=== PATIENT | male | born 1960 | race Caucasian/White ===

== ENCOUNTER 2017-08-13 20:12 | Emergency (ER) | payer BC ==
[~2017-08-13] VITALS: Ht 177.8 cm; Wt 90.7 kg
[~2017-08-13 20:12] MED LIST: ADV250/50 INH; ALB0.5 INH; ALB18R INH; AZIT-18 PO; BACL-1 PO; BUP100 PO; BUPR-118 PO; BUPR-474 PO; CARB-71 PO; CLI150 PO; CYC10 PO; DIA5 PO; FLUT1DIS28 IH; GABA-549 PO; HYDR-4309 PO; LOR75 PO; LOSA50TA72 PO; OLAN10TA19 PO; OXYC-865 PO; OXYC20TA86 PO; OXYC20TA99 PO; PER PO; PRE20 PO; PRED20TA6 PO; TRAM-627 PO; TRAZ-133 PO; TRAZ50 PO; VALA500T63 PO; VENL150C61 PO
--- NOTE | 2017-08-13 20:19 | ER Report ---
History and Physical Time Seen By MD: 20:18 HPI/ROS CHIEF COMPLAINT: Rectal bleeding HISTORY OF PRESENT ILLNESS: 56-year-old male presents ambulatory to the ER concerned about several bouts of rectal bleeding since 4 PM today. He initially passed a large amount of clots and blood. And then he subsequently had another bowel movement of bright red blood. She denies history of hemorrhoids. Patient states heavy ibuprofen use for chronic neck pain. He is seeing spinal surgeon with consideration for surgery. He's had no neck injections. He's had extensive physical therapy. Patient notes follow with family history of ulcer. He also notes a nephew with Crohn's disease. He denies actual self history of inflammatory bowel disease. REVIEW OF SYSTEMS: Respiratory: No cough, no dyspnea. Cardiovascular: No chest pain, no palpitations. Gastrointestinal: As above Musculoskeletal: No back pain. Allergies: Coded Allergies: Penicillins (Verified Allergy, Intermediate, RASH, 08/13/17) erythromycin base (Verified Adverse Reaction, Mild, NAUSEA/VOMITING, ) Home Meds Reported Medications Losartan Potassium (LOSARTAN POTASSIUM) 50 Mg Tablet, 50 MG PO QDAY 08/13/17 Ibuprofen (ADVIL) 200 Mg Tablet, 3 TAB PO DAILY 08/13/17 Gabapentin (GABAPENTIN) 300 Mg Capsule, 300 MG PO TID 03/30/13 Venlafaxine Hcl (Effexor Xr) 150 Mg Cap.sr.24h, 300 MG PO QDAY, 0 Refills 11/04/09 Discontinued Reported Medications Albuterol Sulfate (VENTOLIN HFA) 18 Gm Inh, 1-2 PUFF INH PRN, INH 05/10/17 Bupropion Hcl (WELLBUTRIN XL) 300 Mg Tab.er.24h, 300 MG PO QDAY, TAB 05/10/17 Baclofen (BACLOFEN) 10 Mg Tablet, 10 MG PO BID Y for PRN, TAB 05/10/17 Valacyclovir Hcl (VALACYCLOVIR) 500 Mg Tablet, 500 MG PO DAILY 05/10/17 Carbidopa/Levodopa (SINEMET 25-100 MG TABLET) 1 Each Tablet, 1 EACH PO QID 05/10/17 Losartan Potassium (LOSARTAN POTASSIUM) 50 Mg Tablet, 50 MG PO QDAY 05/10/17 Past Medical/Surgical History Past medical history significant for asthma, probable COPD, GERD, osteoarthritis , right shoulder surgery, and knee scope, neck fusion, back fusion, left foot fracture, and depression. Reviewed Nurses Notes: Yes Old Medical Records Reviewed: Yes Hx Smoking: No (1 CAN SMOKELESS TOBACOO EVERY 3-4 DAYS) Hx Substance Use Disorder: No Hx Alcohol Use: Yes Constitutional Vital Sign - Last 24 Hours 08/13/17 08/13/17 08/13/17 08/13/17 20:14 20:16 20:17 20:18 Temp 98.3 Pulse ??? 86 84 81 Resp 20 B/P (MAP) 161/85 (110) 161/85 Pulse Ox 91 91 90 O2 Delivery Room Air 08/13/17 08/13/17 08/13/17 08/13/17 20:20 20:22 20:24 20:26 Pulse 76 81 76 76 Pulse Ox 93 92 91 92 08/13/17 08/13/17 08/13/17 08/13/17 20:28 20:29 20:30 20:32 Pulse 73 75 84 B/P (MAP) 147/89 (108) Pulse Ox 92 93 92 08/13/17 08/13/17 08/13/17 08/13/17 20:33 20:34 20:36 20:41 Pulse 86 87 68 B/P (MAP) 144/96 (112) 129/89 (102) Pulse Ox 92 91 88 08/13/17 08/13/17 21:11 22:01 Pulse 68 85 Resp 16 B/P (MAP) 137/84 (101) Pulse Ox 92 92 O2 Delivery Room Air Physical Exam Vital signs stable, afebrile, pulse ox normal, orthostatic, positive General Appearance: The patient is alert, has no immediate need for airway protection and no current signs of toxicity. Skin warm, dry, pink, no acute distress HEENT: Pupils equal and round no injection. Oropharynx without redness or exudate, mucous members are moist Respiratory: Chest is non tender, lungs are clear to auscultation. Cardiac: regular rate and rhythm Gastrointestinal: Abdomen is soft, mild distention and non tender, no masses, bowel sounds normal. Rectal:, Brown mucous, no mahesh blood noted Musculoskeletal: Neck: Neck is supple and non tender. Extremities have full range of motion and are non tender. Skin: No rashes or lesions. DIFFERENTIAL DIAGNOSIS: After history and physical exam differential diagnosis was considered for lower GI bleeding including but not limited to diverticulosis , tumor, AVM, hemorrhoid and anal fissure., Additionally, upper GI bleed Medical Decision Making Data Points Result Diagram: 08/13/17201908/13/172019 Laboratory Hematology Test 08/13/17 20:20 08/13/17 20:54 08/13/17 21:50 Red Blood Count 5.17 M/uL (4.00-5.60) Mean Corpuscular Volume 90.8 fL (80.0-96.0) Mean Corpuscular Hemoglobin 31.8 pg (26.0-33.0) Mean Corpuscular Hemoglobin Concent 35.0 g/dL (32.0-36.0) Red Cell Distribution Width 13.3 % (11.5-14.5) Mean Platelet Volume 7.2 fL (7.2-11.1) Neutrophils (%) (Auto) 82.0 % (39.4-72.5) Lymphocytes (%) (Auto) 8.3 % (17.6-49.6) Monocytes (%) (Auto) 5.7 % (4.1-12.4) Eosinophils (%) (Auto) 3.1 % (0.4-6.7) Basophils (%) (Auto) 0.9 % (0.3-1.4) Nucleated RBC Relative Count (auto) 0.0 /100WBC Neutrophils # (Auto) 8.1 K/uL (2.0-7.4) Lymphocytes # (Auto) 0.8 K/uL (1.3-3.6) Monocytes # (Auto) 0.6 K/uL (0.3-1.0) Eosinophils # (Auto) 0.3 K/uL (0.0-0.5) Basophils # (Auto) 0.1 K/uL (0.0-0.1) Nucleated RBC Absolute Count (auto) 0.00 K/uL Prothrombin Time 13.9 seconds (12.0-14.4) Prothromb Time International Ratio 1.06 Activated Partial Thromboplast Time 28 seconds (23-35) Sodium Level 134 mmol/L (137-145) Potassium Level 3.9 mmol/L (3.5-5.0) Chloride Level 100 mmol/L (98-107) Carbon Dioxide Level 24 mmol/L (22-30) Blood Urea Nitrogen 13 mg/dl (9-21) Creatinine 1.00 mg/dl (0.66-1.25) Glomerular Filtration Rate Calc > 60.0 Random Glucose 106 mg/dl (75-110) Lactate 1.2 mmol/L (0.7-2.1) Calcium Level 8.8 mg/dl (8.4-10.2) Total Bilirubin 0.8 mg/dl (0.2-1.3) Aspartate Amino Transf (AST/SGOT) 45 U/L (0-35) Alanine Aminotransferase (ALT/SGPT) 40 U/L (0-56) Alkaline Phosphatase 70 U/L (0-126) C-Reactive Protein 4.2 mg/dl (<1.0) Total Protein 7.3 gm/dl (6.3-8.2) Albumin 4.1 g/dl (3.5-5.0) Amylase Level 60 U/L (0-110) Lipase 43 U/L (23-300) Urine Color Yellow Urine Clarity Clear Urine pH 5.0 pH (4.8-9.5) Urine Specific Alliance 1.015 Urine Protein Negative mg/dL (NEGATIVE) Urine Glucose (UA) Negative mg/dL (NEGATIVE) Urine Ketones 20 mg/dL (NEGATIVE) Urine Blood Small (NEGATIVE) Urine Nitrite Negative (NEGATIVE) Urine Bilirubin Negative (NEGATIVE) Urine Urobilinogen Negative mg/dL (0.2-1.9) Urine Leukocyte Esterase Negative (NEGATIVE) Urine RBC 3 /HPF (0-2/HPF) Urine WBC 4 /HPF (0-5/HPF) Urine Squamous Epithelial Cells None /LPF (</=FEW) Urine Bacteria Few /HPF (NONE-FEW) Urine Mucus None /HPF (NONE-FEW) Stool Occult Blood (IFOB) Positive (NEGATIVE) Chemistry Test 08/13/17 20:20 08/13/17 20:54 08/13/17 21:50 White Blood Count 9.8 k/uL (4.5-11.0) Red Blood Count 5.17 M/uL (4.00-5.60) Hemoglobin 16.4 g/dL (14.0-18.0) Hematocrit 47.0 % (42.0-52.0) Mean Corpuscular Volume 90.8 fL (80.0-96.0) Mean Corpuscular Hemoglobin 31.8 pg (26.0-33.0) Mean Corpuscular Hemoglobin Concent 35.0 g/dL (32.0-36.0) Red Cell Distribution Width 13.3 % (11.5-14.5) Platelet Count 308 K/uL (150-450) Mean Platelet Volume 7.2 fL (7.2-11.1) Neutrophils (%) (Auto) 82.0 % (39.4-72.5) Lymphocytes (%) (Auto) 8.3 % (17.6-49.6) Monocytes (%) (Auto) 5.7 % (4.1-12.4) Eosinophils (%) (Auto) 3.1 % (0.4-6.7) Basophils (%) (Auto) 0.9 % (0.3-1.4) Nucleated RBC Relative Count (auto) 0.0 /100WBC Neutrophils # (Auto) 8.1 K/uL (2.0-7.4) Lymphocytes # (Auto) 0.8 K/uL (1.3-3.6) Monocytes # (Auto) 0.6 K/uL (0.3-1.0) Eosinophils # (Auto) 0.3 K/uL (0.0-0.5) Basophils # (Auto) 0.1 K/uL (0.0-0.1) Nucleated RBC Absolute Count (auto) 0.00 K/uL Prothrombin Time 13.9 seconds (12.0-14.4) Prothromb Time International Ratio 1.06 Activated Partial Thromboplast Time 28 seconds (23-35) Glomerular Filtration Rate Calc > 60.0 Lactate 1.2 mmol/L (0.7-2.1) Calcium Level 8.8 mg/dl (8.4-10.2) Total Bilirubin 0.8 mg/dl (0.2-1.3) Aspartate Amino Transf (AST/SGOT) 45 U/L (0-35) Alanine Aminotransferase (ALT/SGPT) 40 U/L (0-56) Alkaline Phosphatase 70 U/L (0-126) C-Reactive Protein 4.2 mg/dl (<1.0) Total Protein 7.3 gm/dl (6.3-8.2) Albumin 4.1 g/dl (3.5-5.0) Amylase Level 60 U/L (0-110) Lipase 43 U/L (23-300) Urine Color Yellow Urine Clarity Clear Urine pH 5.0 pH (4.8-9.5) Urine Specific Alliance 1.015 Urine Protein Negative mg/dL (NEGATIVE) Urine Glucose (UA) Negative mg/dL (NEGATIVE) Urine Ketones 20 mg/dL (NEGATIVE) Urine Blood Small (NEGATIVE) Urine Nitrite Negative (NEGATIVE) Urine Bilirubin Negative (NEGATIVE) Urine Urobilinogen Negative mg/dL (0.2-1.9) Urine Leukocyte Esterase Negative (NEGATIVE) Urine RBC 3 /HPF (0-2/HPF) Urine WBC 4 /HPF (0-5/HPF) Urine Squamous Epithelial Cells None /LPF (</=FEW) Urine Bacteria Few /HPF (NONE-FEW) Urine Mucus None /HPF (NONE-FEW) Stool Occult Blood (IFOB) Positive (NEGATIVE) Coagulation Test 08/13/17 20:20 Prothrombin Time 13.9 seconds Prothromb Time International Ratio 1.06 Activated Partial Thromboplast Time 28 seconds Urinalysis Test 08/13/17 20:54 Urine Color Yellow Urine Clarity Clear Urine pH 5.0 pH (4.8-9.5) Urine Specific Alliance 1.015 Urine Protein Negative mg/dL (NEGATIVE) Urine Glucose (UA) Negative mg/dL (NEGATIVE) Urine Ketones 20 mg/dL (NEGATIVE) Urine Blood Small (NEGATIVE) Urine Nitrite Negative (NEGATIVE) Urine Bilirubin Negative (NEGATIVE) Urine Urobilinogen Negative mg/dL (0.2-1.9) Urine Leukocyte Esterase Negative (NEGATIVE) Urine RBC 3 /HPF (0-2/HPF) Urine WBC 4 /HPF (0-5/HPF) Urine Squamous Epithelial Cells None /LPF (</=FEW) Urine Bacteria Few /HPF (NONE-FEW) Urine Mucus None /HPF (NONE-FEW) ED Course/Re-evaluation Clinical Indication for ER IV: Hydration, IV Access ED Course Patient was admitted to an examination room. H&P was done. The differential diagnoses was considered. On clinical examination. Patient has stable vital signs. He's had mahesh blood from his rectum. 2 episodes over approximate 5 hours. His H&H are stable. His vital signs are stable. On rectal examination there is brown stool. I had a prolonged discussion with the patient regarding possible admission. He seems quite stable at this time. He's advised no more NSAIDs. He is advised to follow-up next week for EGD and colonoscopy. Patient cautioned return to the ER for feeling lightheaded, dizzy, shortness of breath or fainting. She's also advised to return if he has several more large bloody bowel movements. 08/13/2017 9:52:03 pm case discussed with Dr. Turcios Decision to Disposition Date: Aug 13, 2017 Decision to Disposition Time: 21:37 Depart Departure Latest Vital Signs Vital Signs Date Time Temp Pulse Resp B/P (MAP) Pulse Ox O2 Delivery O2 Flow Rate FiO2 08/13/17 22:01 85 16 137/84 (101) 92 Room Air 08/13/17 20:17 98.3 Impression: Primary Impression: Rectal bleeding Condition: Improved Disposition: HOME OR SELF-CARE Referrals: LEONARD MITCHELL PA-C (PCP) SHAVONNE MUÑIZ MD,CHAD Wade MD Patient Instructions: Rectal Bleeding (ED) Additional Instructions: Follow-up early next week with your primary care or you can call the surgeons directly for a screening colonoscopy, Dr. Muñiz or Dr. Sawyer Return to the ER for any worsening, especially feeling lightheaded or dizzy, several more bright red bowel movements ROCKY MARSHALL DO Aug 13, 2017 20:19
[2017-08-13] MEDS ORDERED: IBUP-1687 PO (20:22)
[2017-08-13] MEDS ORDERED: NS(*) 0.9% 1000 ML BAG 1,000 ML IV ONE (20:25)
[2017-08-13] MEDS ORDERED: ONDANSETRON 4 MG/2 ML VIAL IVP ONE (20:25)
[2017-08-13] MEDS ORDERED: LOSA50TA72 PO (20:28)
[2017-08-13 20:34] LABS: PLATELET COUNT, AUTOMATED 308 K/uL (150-450)
[2017-08-13 20:41] LABS: INR 1.06
[2017-08-13 22:01] VITALS: BP 137/84
== END 2017-08-13 22:07 | disposition home or self-care (01) ==
LOC: ER 20:29
DX: K62.5 Hemorrhage of anus and rectum (principal)
CPT/HCPCS: 81001; 82150; 82274; 83605; 83690; 85025; 85610; 85730; 86140; 96361; 96374; 99283; J2405; J7030; 82040; 82247; 82310; 82374; 82435; 82565; 82947; 84075; 84132; 84155; 84295; 84450; 84460; 84520

== ENCOUNTER 2017-12-14 00:12 | Day surgery (SDC) | payer BC, OTHER ==
[~2017-12-14] VITALS: Ht 177.8 cm; Wt 90.3 kg
[~2017-12-14 00:12] MED LIST changes: +ALBU8.5H IH; +IBUP-1687 PO
--- NOTE | 2017-12-14 07:44 | Post Operative Progress Note ---
Post Operative Progress Note Date: December 14, 2017 Time: 10:24 Surgeon: chip Anesthesia: dr watkins Pre-Op Diagnosis: rectal bleeding Post-Op Diagnosis: normal exam Procedure(s): colonoscopy SHAVONNE SPARKS MD December 14, 2017 07:44
--- NOTE | 2017-12-14 07:45 | Short(Outpt) Discharge Summary ---
Discharge Summary Reason for Hosp/Final Diag: (1) Rectal bleeding Status: Acute Hospital Course & Plan: normal colonoscopy Departure Discharge to: Home Discharge Instructions Home Meds Reported Medications Albuterol Sulfate (VENTOLIN HFA) 18 Gm Inh, 1-2 PUFF INH 3-4XD Y for SHORTNESS OF BREATH, INH 12/10/17 Albuterol Sulfate 90 Mcg/Act (PROAIR HFA 90 MCG/ACT) 8.5 Gm Hfa.aer.ad, 2 PUFF IH BID, INHALER 12/10/17 Losartan Potassium (LOSARTAN POTASSIUM) 50 Mg Tablet, 50 MG PO QDAY 12/10/17 Losartan Potassium (LOSARTAN POTASSIUM) 50 Mg Tablet, 50 MG PO QDAY 08/13/17 Ibuprofen (ADVIL) 200 Mg Tablet, 3 TAB PO DAILY 08/13/17 Gabapentin (GABAPENTIN) 300 Mg Capsule, 300 MG PO BID 03/30/13 Venlafaxine Hcl (Effexor Xr) 150 Mg Cap.sr.24h, 300 MG PO QDAY, 0 Refills 11/04/09 Diet: Regular Activity: As Tolerated SHAVONNE SPARKS MD December 14, 2017 07:45
[2017-12-14] MEDS ORDERED: LIDOCAINE MPF 1% 5 ML VIAL ONE (08:40)
[2017-12-14] MEDS ORDERED: PROPOFOL EMUL(*) 10MG/ML 20 ML 40 ML ONE (08:40)
[2017-12-14 08:41] VITALS: BP 127/83
[2017-12-14] MEDS ORDERED: LIDOCAINE/SOD BICARB 8.4% SYR ID ONE (09:40)
[2017-12-14] MEDS ORDERED: NORMOSOL R SOLN(*) 1000 ML BAG 1,000 ML IV PRN (09:40)
[2017-12-14 10:26] VITALS: BP 93/65
[2017-12-14 10:32] VITALS: BP 101/72
[2017-12-14 10:51] VITALS: BP 137/86
[2017-12-14 11:17] VITALS: BP 134/77
[2017-12-14 11:18] VITALS: BP 138/82
--- NOTE | 2017-12-14 15:26 | OPERATIVE REPORT 1 ---
EVENT DATE: December 14, 2017 SURGEON: Franki Muñiz MD ANESTHESIOLOGIST: Peyman Barron MD ANESTHESIA: Sedation. PREOPERATIVE DIAGNOSIS Rectal bleeding. POSTOPERATIVE DIAGNOSIS Normal-appearing colonoscopic examination. PROCEDURE PERFORMED Colonoscopy. DESCRIPTION OF PROCEDURE Patient was placed in the left lateral decubitus position and given intravenous sedation. Perianal exam was unremarkable. No prolapsing or thrombosed hemorrhoids. No fissures. No fistulas. Digital exam was unremarkable. Flexible colonoscope was inserted and advanced without difficulty to the right colon. In the right colon, he had a lot of solid particulate matter. We were able to drop down into the cecum, but because of all the matter, it was difficult to get detailed mucosal visualization, but no lesions were noted in the cecum or the right colon. Scope was slowly withdrawn. Care was taken to look behind the haustral folds. No abnormalities were noted in the transverse colon. He had an excellent bowel prep from the transverse colon out. No abnormalities were noted in the transverse, descending, sigmoid colon. Rectum was normal. Scope was retroflexed. That appeared to be normal. [facility]
== END 2017-12-14 11:40 | disposition home or self-care (01) ==
LOC: OR 00:12
PROVIDERS: ATTEND Surgery
DX: K62.5 Hemorrhage of anus and rectum (principal)
CPT/HCPCS: 00811; 45378; J2001; J2704

== ENCOUNTER 2017-12-19 17:43 | Emergency (ER) | payer SELFPAY ==
--- NOTE | 2017-12-19 17:54 | ER Report ---
History and Physical Time Seen By MD: 17:54 Hx. of Stated Complaint: PATIENT REPORTS THAT HE HAD AN ASTHMA ATTACK AT HOME. HE USED HIS RESCUE INHALER AND IS FEELING BETTER HPI/ROS CHIEF COMPLAINT: Asthma attack HISTORY OF PRESENT ILLNESS: 57 are old male patient presents to the emergency room with complaint of asthma attack. Patient states he was at home and started having difficulty breathing. He tried to get his nebulizer set up. However when he did that he dropped the mouthpiece and axial he stepped on it. Patient did not have a second mouthpiece. Patient states he did use his inhaler, and sat down and took a deep breaths. He states he was able to get his asthma attack under control. He came in to the emergency room for further evaluation and nebulizer treatment. Patient denies having any difficulty breathing, he denies having any chest pain at this time. Allergies: Coded Allergies: Penicillins (Verified Allergy, Intermediate, RASH, 12/10/17) erythromycin base (Verified Adverse Reaction, Mild, NAUSEA/VOMITING, ) Home Meds Reported Medications Albuterol Sulfate (VENTOLIN HFA) 18 Gm Inh, 1-2 PUFF INH 3-4XD Y for SHORTNESS OF BREATH, INH 12/10/17 Albuterol Sulfate 90 Mcg/Act (PROAIR HFA 90 MCG/ACT) 8.5 Gm Hfa.aer.ad, 2 PUFF IH BID, INHALER 12/10/17 Losartan Potassium (LOSARTAN POTASSIUM) 50 Mg Tablet, 50 MG PO QDAY 12/10/17 Losartan Potassium (LOSARTAN POTASSIUM) 50 Mg Tablet, 50 MG PO QDAY 08/13/17 Ibuprofen (ADVIL) 200 Mg Tablet, 3 TAB PO DAILY 08/13/17 Gabapentin (GABAPENTIN) 300 Mg Capsule, 300 MG PO BID 03/30/13 Venlafaxine Hcl (Effexor Xr) 150 Mg Cap.sr.24h, 300 MG PO QDAY, 0 Refills 11/04/09 Past Medical/Surgical History Patient has a past medical history of seizures, hypertension, asthma, COPD, reflux, chronic numbness in right calf and big toe, arthritis of the neck, back pain, herpes type I and 2, alcohol use, depression. Patient has surgical history of double hernia repair as an infant, neck fusion, knee surgery bilaterally, right shoulder surgery, lymph node biopsied on neck. Reviewed Nurses Notes: Yes Hx Smoking: No Smoking Status: Never Smoker Hx Substance Use Disorder: No Hx Alcohol Use: Yes Constitutional Vital Sign - Last 24 Hours 12/19/17 12/19/17 12/19/17 12/19/17 17:48 17:55 18:02 18:02 Temp 97.7 Pulse 80 67 69 Resp 20 20 20 B/P (MAP) 145/89 Pulse Ox 98 98 O2 Delivery Room Air Room Air 12/19/17 18:15 Pulse 68 Resp 20 B/P (MAP) 140/74 (96) Pulse Ox 95 O2 Delivery Room Air Physical Exam General appearance: Alert no distress. Respiratory: Chest is non tender, lungs are clear to auscultation. Cardiac: Regular rate and rhythm DIFFERENTIAL DIAGNOSIS: After history and physical exam differential diagnosis was considered for asthma attack, bronchitis, uncontrolled asthma. Medical Decision Making ED Course/Re-evaluation ED Course Patient was admitted and examined, history of physical were obtained. Differential diagnoses were considered. On examination lungs are clear, heart is regular. A DuoNeb was ordered and patient received. Patient stated on reevaluation that he is feeling significantly better. We will go ahead and discharge patient home at this time. Patient will be given the nebulizer mouthpiece that he was given here in the emergency room. I discussed this with the patient who verbalized understanding and agreement with plan. Decision to Disposition Date: Dec 19, 2017 Decision to Disposition Time: 18:12 Depart Departure Latest Vital Signs Vital Signs Date Time Temp Pulse Resp B/P (MAP) Pulse Ox O2 Delivery O2 Flow Rate FiO2 12/19/17 18:15 68 20 140/74 (96) 95 Room Air 12/19/17 17:48 97.7 Impression: Primary Impression: Acute asthma exacerbation Referrals: LEONARD MITCHELL PA-C (PCP) Patient Instructions: Asthma (ED) Additional Instructions: Increase fluid intake. Continue to take your medications for your asthma. Get plenty of rest. Follow up with your primary care provider in the next week. Return to the ER if condition worsens. Problem Qualifiers Primary Impression: Acute asthma exacerbation Asthma severity: mild Asthma persistence: intermittent Qualified Codes: J45.21 - Mild intermittent asthma with (acute) exacerbation TABITHA DUFF Dec 19, 2017 17:53
[2017-12-19] MEDS ORDERED: ALBUTEROL/IPRATROPIUM 3 ML NEB NEB ONE (17:55)
[2017-12-19] MEDS ORDERED: ALBUTEROL/IPRATROPIUM 3 ML NEB ONE (17:56)
[2017-12-19 18:15] VITALS: BP 140/74
== END 2017-12-19 18:18 | disposition home or self-care (01) ==
LOC: ER 17:56
DX: J45.21 Mild intermittent asthma with (acute) exacerbation (principal)
CPT/HCPCS: 94640; 99283; J7620; 99282

== ENCOUNTER 2018-01-05 17:18 | Emergency (ER) | payer SELFPAY ==
--- NOTE | 2018-01-05 17:32 | ER Report ---
History and Physical Time Seen By MD: 17:23 (JAVY NEWMAN MD) HPI/ROS CHIEF COMPLAINT: Paranoid schizophrenia HISTORY OF PRESENT ILLNESS: Patient is a 57 male brought in by police department for evaluation after having what was reportedly a psychiatric breakdown patient was wandering the streets knocking on a random door looking for somebody who did not live there was very obnoxious towards people that did look they're evidently she he felt that there were bodies in his house which clearly were not he had his doors locked his roommates that he's been acting very strange reportedly has no psychiatric history at time of presentation the police picked him up as her driving he was pointing also saying evil lives there and he will lives there patient on arrival to the emergency department was in emergency long-term and a tidal will be placed on the patient and behavioral health consult REVIEW OF SYSTEMS: Respiratory: No cough, no dyspnea. Cardiovascular: No chest pain, no palpitations. Gastrointestinal: No vomiting, no abdominal pain. Musculoskeletal: No back pain. Remainder of the 14 system rev: Yes (JAVY NEWMAN MD) Allergies: Coded Allergies: Penicillins (Verified Allergy, Intermediate, RASH, 12/10/17) erythromycin base (Verified Adverse Reaction, Mild, NAUSEA/VOMITING, ) Home Meds Reported Medications Albuterol Sulfate (VENTOLIN HFA) 18 Gm Inh, 1-2 PUFF INH 3-4XD Y for SHORTNESS OF BREATH, INH 12/10/17 Albuterol Sulfate 90 Mcg/Act (PROAIR HFA 90 MCG/ACT) 8.5 Gm Hfa.aer.ad, 2 PUFF IH BID, INHALER 12/10/17 Losartan Potassium (LOSARTAN POTASSIUM) 50 Mg Tablet, 50 MG PO QDAY 12/10/17 Losartan Potassium (LOSARTAN POTASSIUM) 50 Mg Tablet, 50 MG PO QDAY 08/13/17 Ibuprofen (ADVIL) 200 Mg Tablet, 3 TAB PO DAILY 08/13/17 Gabapentin (GABAPENTIN) 300 Mg Capsule, 300 MG PO BID 03/30/13 Venlafaxine Hcl (Effexor Xr) 150 Mg Cap.sr.24h, 300 MG PO QDAY, 0 Refills 11/04/09 Reviewed Nurses Notes: Yes Old Medical Records Reviewed: Yes (JAVY NEWMAN MD) Hx Smoking: No Smoking Status: Never Smoker Hx Substance Use Disorder: No Hx Alcohol Use: Yes (JAVY NEWMAN MD) Constitutional Vital Sign - Last 24 Hours 01/05/18 01/05/18 17:26 19:31 Pulse 106 100 Resp 16 16 B/P (MAP) 148/99 138/88 (105) Pulse Ox 93 94 O2 Delivery Room Air Room Air (LORY STARK MD) Physical Exam General Appearance: [The patient is alert, has no immediate need for airway protection and no current signs of toxicity.] [ ] [Eyes:] [Pupils equal and round no injection.] Respiratory: [Chest is non tender, lungs are clear to auscultation.] Cardiac: [regular rate and rhythm] [ ] Gastrointestinal: [Abdomen is soft and non tender, no masses, bowel sounds normal.] Musculoskeletal: Neck: Neck is supple and non tender. Extremities have full range of motion and are non tender. Skin: No rashes or lesions. Psychiatric examination patient with obvious delusional behavior-isms including paranoid schizophrenia nonsuicidal denies any homicidal DIFFERENTIAL DIAGNOSIS: After history and physical exam differential diagnosis was considered for psychiatric break (JAVY NEWMAN MD) Medical Decision Making Data Points Result Diagram: 01/05/18 1735 01/05/18 1735 Laboratory Hematology Test 01/05/18 17:23 01/05/18 17:35 Urine Color Yellow Urine Clarity Clear Urine pH 5.0 pH (4.8-9.5) Urine Specific [place] 1.019 Urine Protein Negative mg/dL (NEGATIVE) Urine Glucose (UA) Negative mg/dL (NEGATIVE) Urine Ketones 20 mg/dL (NEGATIVE) Urine Blood Negative (NEGATIVE) Urine Nitrite Negative (NEGATIVE) Urine Bilirubin Negative (NEGATIVE) Urine Urobilinogen Negative mg/dL (0.2-1.9) Urine Leukocyte Esterase Negative (NEGATIVE) Urine RBC None /HPF (0-2/HPF) Urine WBC 2 /HPF (0-5/HPF) Urine Squamous Epithelial Cells Few /LPF (</=FEW) Urine Bacteria Negative /HPF (NONE-FEW) Urine Hyaline Casts Few /LPF (NONE-FEW) Urine Mucus Few /HPF (NONE-FEW) Urine Opiates Screen Negative Urine Barbiturates Screen Negative Ur Tricyclic Antidepressants Screen Negative Urine Phencyclidine Screen Negative Urine Amphetamines Screen Negative Urine Benzodiazepines Screen Negative Urine Cocaine Screen Negative Urine Cannabinoids Screen Negative Red Blood Count 5.63 M/uL (4.00-5.60) Mean Corpuscular Volume 88.3 fL (80.0-96.0) Mean Corpuscular Hemoglobin 30.6 pg (26.0-33.0) Mean Corpuscular Hemoglobin Concent 34.7 g/dL (32.0-36.0) Red Cell Distribution Width 14.1 % (11.5-14.5) Mean Platelet Volume 7.4 fL (7.2-11.1) Neutrophils (%) (Auto) 74.6 % (39.4-72.5) Lymphocytes (%) (Auto) 15.7 % (17.6-49.6) Monocytes (%) (Auto) 7.5 % (4.1-12.4) Eosinophils (%) (Auto) 1.6 % (0.4-6.7) Basophils (%) (Auto) 0.6 % (0.3-1.4) Nucleated RBC Relative Count (auto) 0.0 /100WBC Neutrophils # (Auto) 6.5 K/uL (2.0-7.4) Lymphocytes # (Auto) 1.4 K/uL (1.3-3.6) Monocytes # (Auto) 0.7 K/uL (0.3-1.0) Eosinophils # (Auto) 0.1 K/uL (0.0-0.5) Basophils # (Auto) 0.0 K/uL (0.0-0.1) Nucleated RBC Absolute Count (auto) 0.00 K/uL Sodium Level 139 mmol/L (137-145) Potassium Level 4.2 mmol/L (3.5-5.0) Chloride Level 103 mmol/L (98-107) Carbon Dioxide Level 21 mmol/L (22-30) Blood Urea Nitrogen 16 mg/dl (9-21) Creatinine 1.00 mg/dl (0.66-1.25) Glomerular Filtration Rate Calc > 60.0 Random Glucose 108 mg/dl (75-110) Calcium Level 9.4 mg/dl (8.4-10.2) Magnesium Level 1.8 mg/dl (1.7-2.2) Total Bilirubin 0.6 mg/dl (0.2-1.3) Aspartate Amino Transf (AST/SGOT) 36 U/L (0-35) Alanine Aminotransferase (ALT/SGPT) 49 U/L (0-56) Alkaline Phosphatase 71 U/L (0-126) Total Protein 8.2 g/dl (6.3-8.2) Albumin 4.7 g/dl (3.5-5.0) Salicylates Level < 10 mg/L Salicylate Last Dose Date unk Acetaminophen Level < 10 ug/ml Serum Alcohol < 10 mg/dl Chemistry Test 01/05/18 17:23 01/05/18 17:35 Urine Color Yellow Urine Clarity Clear Urine pH 5.0 pH (4.8-9.5) Urine Specific [place] 1.019 Urine Protein Negative mg/dL (NEGATIVE) Urine Glucose (UA) Negative mg/dL (NEGATIVE) Urine Ketones 20 mg/dL (NEGATIVE) Urine Blood Negative (NEGATIVE) Urine Nitrite Negative (NEGATIVE) Urine Bilirubin Negative (NEGATIVE) Urine Urobilinogen Negative mg/dL (0.2-1.9) Urine Leukocyte Esterase Negative (NEGATIVE) Urine RBC None /HPF (0-2/HPF) Urine WBC 2 /HPF (0-5/HPF) Urine Squamous Epithelial Cells Few /LPF (</=FEW) Urine Bacteria Negative /HPF (NONE-FEW) Urine Hyaline Casts Few /LPF (NONE-FEW) Urine Mucus Few /HPF (NONE-FEW) Urine Opiates Screen Negative Urine Barbiturates Screen Negative Ur Tricyclic Antidepressants Screen Negative Urine Phencyclidine Screen Negative Urine Amphetamines Screen Negative Urine Benzodiazepines Screen Negative Urine Cocaine Screen Negative Urine Cannabinoids Screen Negative White Blood Count 8.7 k/uL (4.5-11.0) Red Blood Count 5.63 M/uL (4.00-5.60) Hemoglobin 17.2 g/dL (14.0-18.0) Hematocrit 49.7 % (42.0-52.0) Mean Corpuscular Volume 88.3 fL (80.0-96.0) Mean Corpuscular Hemoglobin 30.6 pg (26.0-33.0) Mean Corpuscular Hemoglobin Concent 34.7 g/dL (32.0-36.0) Red Cell Distribution Width 14.1 % (11.5-14.5) Platelet Count 394 K/uL (150-450) Mean Platelet Volume 7.4 fL (7.2-11.1) Neutrophils (%) (Auto) 74.6 % (39.4-72.5) Lymphocytes (%) (Auto) 15.7 % (17.6-49.6) Monocytes (%) (Auto) 7.5 % (4.1-12.4) Eosinophils (%) (Auto) 1.6 % (0.4-6.7) Basophils (%) (Auto) 0.6 % (0.3-1.4) Nucleated RBC Relative Count (auto) 0.0 /100WBC Neutrophils # (Auto) 6.5 K/uL (2.0-7.4) Lymphocytes # (Auto) 1.4 K/uL (1.3-3.6) Monocytes # (Auto) 0.7 K/uL (0.3-1.0) Eosinophils # (Auto) 0.1 K/uL (0.0-0.5) Basophils # (Auto) 0.0 K/uL (0.0-0.1) Nucleated RBC Absolute Count (auto) 0.00 K/uL Glomerular Filtration Rate Calc > 60.0 Calcium Level 9.4 mg/dl (8.4-10.2) Magnesium Level 1.8 mg/dl (1.7-2.2) Total Bilirubin 0.6 mg/dl (0.2-1.3) Aspartate Amino Transf (AST/SGOT) 36 U/L (0-35) Alanine Aminotransferase (ALT/SGPT) 49 U/L (0-56) Alkaline Phosphatase 71 U/L (0-126) Total Protein 8.2 g/dl (6.3-8.2) Albumin 4.7 g/dl (3.5-5.0) Salicylates Level < 10 mg/L Salicylate Last Dose Date unk Acetaminophen Level < 10 ug/ml Serum Alcohol < 10 mg/dl Toxicology Test 01/05/18 17:23 01/05/18 17:35 Urine Opiates Screen Negative Urine Barbiturates Screen Negative Ur Tricyclic Antidepressants Screen Negative Urine Phencyclidine Screen Negative Urine Amphetamines Screen Negative Urine Benzodiazepines Screen Negative Urine Cocaine Screen Negative Urine Cannabinoids Screen Negative Salicylates Level < 10 mg/L Salicylate Last Dose Date unk Acetaminophen Level < 10 ug/ml Serum Alcohol < 10 mg/dl Urinalysis Test 01/05/18 17:23 Urine Color Yellow Urine Clarity Clear Urine pH 5.0 pH (4.8-9.5) Urine Specific [place] 1.019 Urine Protein Negative mg/dL (NEGATIVE) Urine Glucose (UA) Negative mg/dL (NEGATIVE) Urine Ketones 20 mg/dL (NEGATIVE) Urine Blood Negative (NEGATIVE) Urine Nitrite Negative (NEGATIVE) Urine Bilirubin Negative (NEGATIVE) Urine Urobilinogen Negative mg/dL (0.2-1.9) Urine Leukocyte Esterase Negative (NEGATIVE) Urine RBC None /HPF (0-2/HPF) Urine WBC 2 /HPF (0-5/HPF) Urine Squamous Epithelial Cells Few /LPF (</=FEW) Urine Bacteria Negative /HPF (NONE-FEW) Urine Hyaline Casts Few /LPF (NONE-FEW) Urine Mucus Few /HPF (NONE-FEW) (LORY STARK MD) EKG/Imaging Imaging CT OF THE BRAIN WITHOUT CONTRAST HISTORY: Not clearly specified. PROCEDURE: 3.0 mm contiguous axial sections were performed through the brain. Sagittal and coronal reformats were submitted. COMPARISON: CT brain February 19, 2017 FINDINGS: BRAIN: Brain and intracranial structures: There is no mass lesion, hemorrhage or acute infarct. Orbits (included portions): Normal. Scalp: Normal. Skull: Normal. Paranasal sinuses and mastoid air cells (included portions): There are secretions in the incompletely imaged left maxillary sinus. There are also a few secretions in the ethmoid air cells and left sphenoid sinus. IMPRESSION: No evidence of acute intracranial abnormality. One of the following dose optimization techniques was utilized in the performance of this exam: Automated exposure control; adjustment of the mA and/ or kV according to the patient's size; or use of an iterative reconstruction technique. Specific details can be referenced in the facility's radiology CT exam operational policy. Report Dictated By: Cherelle Donato MD at 01/05/2018 6:17 PM (LORY STARK MD) ED Course/Re-evaluation ED Course I discussed this case with Dr. Newman at sign out at shift change. CT scan of the head was negative. Reviewed labs and discussed with Dr. Rosenthal, who accepted the patient for admission to [facility]. Decision to Disposition Date: Jan 05, 2018 Decision to Disposition Time: 19:00 (LORY STARK MD) Depart Departure Latest Vital Signs Vital Signs Date Time Temp Pulse Resp B/P (MAP) Pulse Ox O2 Delivery O2 Flow Rate FiO2 01/05/18 19:31 100 16 138/88 (105) 94 Room Air (LORY STARK MD) Impression: Primary Impression: Schizophrenia, acute undifferentiated Condition: Condition Unchanged Disposition: XFER TO [facility] JAVY NEWMAN MD Jan 05, 2018 17:32 LORY STARK MD Jan 05, 2018 18:03
[2018-01-05 17:41] LABS: PLATELET COUNT, AUTOMATED 394 K/uL (150-450)
--- NOTE | 2018-01-05 18:28 | RADIOLOGY IMAGING REPORT ---
FACILITY: [facility] PATIENT NAME: Jonathon Quiroz : 1960 MR: [id number] V: [id number] EXAM DATE: ORDERING PHYSICIAN: JAVY NEWMAN TECHNOLOGIST: Location: [facility] [place] Patient: Jonathon Quiroz : 1960 Visit/Account:[id number] Date of Sevice: 01/05/2018 CT OF THE BRAIN WITHOUT CONTRAST HISTORY: Not clearly specified. PROCEDURE: 3.0 mm contiguous axial sections were performed through the brain. Sagittal and coronal r eformats were submitted. COMPARISON: CT brain February 19, 2017 FINDINGS: BRAIN: Brain and intracranial structures: There is no mass lesion, hemorrhage or acute infarct. Orbits (included portions): Normal. Scalp: Normal. Skull: Normal. Paranasal sinuses and mastoid air cells (included portions): There are secretions in the incompletely imaged left maxillary sinus. There are also a few secretions in the ethmoid air cells and left sphen oid sinus. IMPRESSION: No evidence of acute intracranial abnormality. One of the following dose optimization techniques was utilized in the performance of this exam: Autom ated exposure control; adjustment of the mA and/or kV according to the patient's size; or use of an i terative reconstruction technique. Specific details can be referenced in the facility's radiology C T exam operational policy. Report Dictated By: Cherelle Donato MD at 01/05/2018 6:17 PM Report E-Signed By: Cherelle Donato MD at 01/05/2018 6:24 PM [id number]
[2018-01-05 19:31] VITALS: BP 138/88
== END 2018-01-05 19:20 ==
LOC: ER 17:25
DX: F23 Brief psychotic disorder (principal)
CPT/HCPCS: 70450; 80305; 80320; 80329; 81001; 82040; 82247; 82310; 82374; 82435; 82565; 82947; 83735; 84075; 84132; 84155; 84295; 84443; 84450; 84460; 84520; 85025

== ENCOUNTER 2018-01-05 19:14 | Inpatient (IN) | payer SELFPAY ==
[~2018-01-05] VITALS: Ht 177.8 cm; Wt 90.3 kg
[2018-01-05] MEDS ORDERED: MAG HYD/AL HYD/SIMETH 30ML UDC PO PRN (20:15)
[2018-01-05] MEDS ORDERED: DIAZEPAM 10 MG TAB PO ONE (20:15)
[2018-01-05 22:58] VITALS: BP 158/85
[2018-01-06 06:33] VITALS: BP 122/68
[2018-01-06] MEDS: MULTIVITAMINS TAB PO SCH (08:06)
[2018-01-06 11:32] VITALS: BP 125/72
--- NOTE | 2018-01-06 11:36 | BHS - Psychiatric Evaluation ---
ER - Title 25 MHE Evaluation Title 25 Evaluation Patient Detained By: Law Enforcement Referral Source: Professional: [employer] Date Patient Detained: Jan 05, 2018 Time Patient Detained: 17:09 Date Half-Way Expires: Jan 10, 2018 Time Half-Way Expires: 17:09 Legal Status: Police Hold: No Legal Status: Residence: [facility] Resident, State Resident Assessment Data Provided By: Patient HPI/ROS: From Er Dr. Weaver, "Patient is a 57 male brought in by police department for evaluation after having what was reportedly a psychiatric breakdown patient was wandering the streets knocking on a random door looking for somebody who did not live there was very obnoxious towards people that did look they're evidently she he felt that there were bodies in his house which clearly were not he had his doors locked his roommates that he's been acting very strange reportedly has no psychiatric history at time of presentation the police picked him up as her driving he was pointing also saying evil lives there and he will lives there patient on arrival to the emergency department was in emergency half-way and a title 25 will be placed on the patient and behavioral health consult." Admit due to SI or Attempt: No Suicide Plan: No Plan Alcohol or Drugs Involved: No Is Patient Info Reliable: Yes Is Collateral Info Reliable: Yes Current Home Psych Meds: Unknown at this time, see Maggie Ornelas ([facility]) for medications Mental Status Exam General Appearance: Casual, Well Groomed, Good Eye Contact, Cooperative Speech: Clear Mood: Other (neutral mood) Affect: Neutral Thought Process: Goal Directed Thought Content: Suicidal Ideation (denies) Cognition: Alert & Oriented-Person, No [id number]-[id number] Memory: Immediate Insight Judgment: Poor Sleep: Normal Hallucinations: Denies Delusions: Denies Current Risk & History Current Dangerous Risk Assessm: Current Suicide Ideation (denies), Self- Injurious Behaviors (Walking around town, knowing on doors), Ubable to Care for Self (Says he became so confused he did not know what he was doing.) Past Dangerous Risk Assessm: Other (Reports extreme depresiion and some suicidal thoughts after his divorce 14 years ago) Previous Suicide Attempt: No Previous Attempt Previous Psychiatric Illness: Yes (Seeks treatment at the [facility], sees rotating therapists there as well as maggie Ornelas for medicine) Previous Psychiatric Treatment: Yes Risk Assessment & Disposition Evaluated Risk Assessment: Risk assessment is rated as severe. Patient says he is concerned about his welfare, and remarks about his state as he was brought by LE to the ER last night, "that was the worst I've ever been." Says he would like help figuring out if he has a medical condition besides asthma that is causing extreme confusion and uncontrollable spasms. He demonstrates how the "shaking, tremors " overtake him. He says that he is very worried about himself. His behavior came to the attention of Law Enforcement yesterday because he was knocking on random doors and referencing bodies in his home to strangers. This condition and patient's related confusion make him fragile, vulnerable, and unable to care for himself at this time. A safe and structured environment is indicated. Meets Mental Illness Req.: Yes Meets Dangerousness Req.: Yes Emergency Half-Way to be: Upheld Decision Comment: Patient says he is concerned about his welfare, and remarks about his state as he was brought by LE to the ER last night, "that was the worst I've ever been." Says he would like help figuring out if he has a medical condition besides asthma that is causing extreme confusion and uncontrollable spasms. He demonstrates how the "shaking, tremors" overtake him. He says that he is very worried about himself. His behavior came to the attention of Law Enforcement yesterday because he was knocking on random doors and referencing bodies in his home to strangers. This condition and patient's related confusion make him fragile, vulnerable, and unable to care for himself at this time. A safe and structured environment is indicated. Date of Decision: Jan 06, 2018 Time of Decision: 11:35 Patient is Medically Stable at: Yes Disposition: JENIFFER LAWS L[facility] Jan 06, 2018 11:36
[2018-01-06] MEDS ORDERED: IBUPROFEN 600 MG TAB PO PRN (13:25)
[2018-01-06] MEDS ORDERED: ALBUTEROL SULFATE 90 MCG/ACT 8.5 GM HNH INH PRN (13:25)
[2018-01-06] MEDS: CHOLECALCIFEROL 1000 UNIT TAB PO SCH (14:15)
[2018-01-06] MEDS: VENLAFAXINE REG 75 MG TAB PO SCH (14:15)
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
[2018-01-06] MEDS: GABAPENTIN 300 MG CAP PO SCH (20:58)
[2018-01-06] MEDS: TERBINAFINE 1% TP SCH (20:58)
[2018-01-06 21:31] VITALS: BP_SYST 122; BP_SYST 140; BP_DIAS 75; BP_DIAS 80
[2018-01-07 06:20] VITALS: BP 122/59
[2018-01-07] MEDS: VENLAFAXINE REG 75 MG TAB PO SCH ×2 (08:05→11:57)
[2018-01-07] MEDS: TERBINAFINE 1% TP SCH ×2 (08:05→21:01)
[2018-01-07] MEDS: LOSARTAN POTASSIUM 50 MG TAB PO SCH (08:06)
[2018-01-07] MEDS: CHOLECALCIFEROL 1000 UNIT TAB PO SCH (08:06)
[2018-01-07] MEDS: GABAPENTIN 300 MG CAP PO SCH ×2 (08:06→21:01)
[2018-01-07] MEDS: MULTIVITAMINS TAB PO SCH (08:06)
--- NOTE | 2018-01-07 11:39 | BHS Progress Note ---
S - Subjective Progress Notes Subjective Patient improving much today, particularly in communication abilities. Two of patient's sons, one of whom he lives with, were present today and in agreement that patient has suffered an acute decompensation, and also that he has improved markedly overall since admission. Patient giving no evidence of psychosis today. Patient notably not wearing c-pap through the night, and this is likely indicative of similar behavior at home. Will continue to encourage use of C-pap at home, patient now taking Effexor during daytime. Further improvement likely to continue, and expected discharge could take place over weekend , prior to detainment expiration on Wednesday. Patient attending to [facility] well on unit. No other concerns. Suicidal Ideation: None Homicidal Ideation: None BHS - Objective Physical Exam Vital Signs Vital Signs Date Time Temp Pulse Resp B/P (MAP) Pulse Ox O2 Delivery O2 Flow Rate FiO2 01/07/18 06:20 97.8 60 15 122/59 (80) 96 Room Air Hematology Test 01/05/18 17:35 Prostate Specific Antigen 0.89 ng/ml (0.0-4.0) Vitamin D 25-Hydroxy 39 ng/ml (30-100) Free Thyroxine 1.19 ng/dl (0.78-2.19) Chemistry Test 01/05/18 17:35 Prostate Specific Antigen 0.89 ng/ml (0.0-4.0) Vitamin D 25-Hydroxy 39 ng/ml (30-100) Free Thyroxine 1.19 ng/dl (0.78-2.19) Muscle Strength and Tone: WNL Gait and Station: Steady [facility] Medications Reviewed: Side Effects, Benefits of Medication, Risks Allergies Reviewed: Yes Mental Status Exam General Appearance: Casual, Well Groomed, Good Eye Contact, Cooperative, Polite , Good Interaction, No Tearful, No Psychomotor Agitation, No Psychomotor Retardation, No Bizarre Mannerisms, No Tics Speech: Clear, Spontaneous, Normal Rate, Normal Rhythm, Normal Volume, Normal Tone Mood: Euthymic Affect: Full and Appropriate, Calm, No Sad, No Neutral, No Flat, No Withdrawn, No Tearful, No Anxious, No Agitated Thought Process: Organized, Logical (improving), Goal Directed, No Loose Associations, No Flight of Ideas Thought Content: Suicidal Ideation (denies), No Homicidal Ideation, No Delusions, No Auditory Halllucinations, No Visual Hallucinations, No Thought Broadcasting, No Ideas of Reference, No Obsessions, No Compulsions Cognition: Alert & Oriented-Person, Alert & Oriented-Place, Alert & Oriented- Time, Wqlsi-Bruvqcgr-Ivezbapwb Memory: Immediate, Recent, Remote Intelligence: Average Insight Judgment: Fair (improving ) [facility] Assessment and Plan Wurj-su-Gtib Encounter Date: Jan 07, 2018 Bcgm-tr-Smen Encounter Time: 10:00 [facility] Plan: Necessary Precautions, Individual/Group Therapy, Admin/Titrate Meds, Educate Patient Tobacco Medications: Not Appropriate Condition Multpiple Antipsychotics Used: No Problems: (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 continue treatment. 2. likely discharge over the weekend. 3. evaluate C-pap machine and fit. ANAY RHOADES MD Jan 07, 2018 11:39
[2018-01-07 13:40] VITALS: BP 108/60
[2018-01-07 18:02] VITALS: BP 104/56
[2018-01-08 01:30] VITALS: BP 118/72
[2018-01-08] MEDS: MULTIVITAMINS TAB PO SCH (08:22)
[2018-01-08] MEDS: GABAPENTIN 300 MG CAP PO SCH (08:22)
[2018-01-08] MEDS: CHOLECALCIFEROL 1000 UNIT TAB PO SCH (08:22)
[2018-01-08] MEDS: LOSARTAN POTASSIUM 50 MG TAB PO SCH (08:22)
[2018-01-08] MEDS: VENLAFAXINE REG 75 MG TAB PO SCH ×2 (08:22→12:07)
[2018-01-08] MEDS: TERBINAFINE 1% TP SCH (08:39)
--- NOTE | 2018-01-08 11:54 | BHS Progress Note ---
S - Subjective Progress Notes Subjective "I'm doing a lot better." Psychosis resolved, sleeping better, mood improved Telephone conference w/son whom he lives with for appropriate discharge planning Allergies Coded Allergies Penicillins (Verified Allergy, Intermediate, RASH, 12/10/17) erythromycin base (Verified Adverse Reaction, Mild, NAUSEA/VOMITING, 12/10/17) Suicidal Ideation: None Homicidal Ideation: None S - Objective Physical Exam Vital Signs Vital Signs Date Time Temp Pulse Resp B/P (MAP) Pulse Ox O2 Delivery O2 Flow Rate FiO2 01/08/18 01:30 97.7 59 118/72 (87) 98 Nasal Cannula 2.0 01/07/18 18:02 16 Muscle Strength and Tone: WNL Gait and Station: Steady [facility] Medications Reviewed: Side Effects, Benefits of Medication, Risks Allergies Reviewed: Yes Mental Status Exam General Appearance: Casual, Well Groomed, Good Eye Contact, Cooperative, Polite , Good Interaction, No Tearful, No Psychomotor Agitation, No Psychomotor Retardation, No Bizarre Mannerisms, No Tics Speech: Clear, Spontaneous, Normal Rate, Normal Rhythm, Normal Volume, Normal Tone Mood: Euthymic Affect: Full and Appropriate, Calm, No Sad, No Neutral, No Flat, No Withdrawn, No Tearful, No Anxious, No Agitated Thought Process: Organized, Logical (improving), Goal Directed, No Loose Associations, No Flight of Ideas Thought Content: Suicidal Ideation (denies), No Homicidal Ideation, No Delusions, No Auditory Halllucinations, No Visual Hallucinations, No Thought Broadcasting, No Ideas of Reference, No Obsessions, No Compulsions Cognition: Alert & Oriented-Person, Alert & Oriented-Place, Alert & Oriented- Time, Ijmav-Gxysolyr-Qjmhajhyo Memory: Immediate, Recent, Remote Intelligence: Average Insight Judgment: Fair (improving ) [facility] ED Medications Gabapentin (Neurontin(*) 300 Mg Cap (Or Equiv)) 300 mg BID Last administered on 01/08/18at 08:22; Admin Dose 300 MG; Start 01/06/18 at 21:00; Stop 02/05/18 at 20 :59 Losartan Potassium (Cozaar 50 Mg Tab (Or Equiv)) 50 mg QDAY Last administered on 01/08/18at 08:22; Admin Dose 50 MG; Start 01/07/18 at 09:00; Stop 02/06/18 at 08:59 Terbinafine HCl (LamISIL 1% CREAM 30 GM TUBE (OR EQUIV)) APPLY BID Last administered on 01/08/18at 08:39; Admin Dose 1 JAY; Start 01/06/18 at 21:00; Stop 02/05/18 at 20:59 [facility] Assessment and Plan Okct-fd-Hflb Encounter Date: Jan 08, 2018 Ukwc-bj-Gtwv Encounter Time: 10:20 [facility] Plan: Necessary Precautions, Individual/Group Therapy, Admin/Titrate Meds, Educate Patient Tobacco Medications: Not Appropriate Condition Multpiple Antipsychotics Used: No Problems: (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 EMMA GIANG NP Jan 08, 2018 11:54
[2018-01-08 13:00] VITALS: BP 126/74
[2018-01-08] MEDS ORDERED: LOSA50TA68 PO (15:14)
[2018-01-08] MEDS ORDERED: TERB15CR TP (15:33)
[2018-01-08] MEDS ORDERED: MULT-7 (15:35)
[2018-01-08] MEDS ORDERED: CHOL200074 PO (15:36)
--- NOTE | 2018-01-08 16:47 | DISCHARGE SUMMARY ---
DATE OF ADMISSION: January 05, 2018 DATE OF DISCHARGE: January 08, 2018 FINAL DIAGNOSES PER DIAGNOSTIC AND STATISTICAL MANUAL OF MENTAL DISORDERS, FIFTH EDITION 1. Unspecified psychosis, rule out psychosis secondary to general medical condition, untreated sleep apnea with disrupted sleep. 2. Rule out psychosis secondary to substance use, Effexor XR, previously taken at night. 3. Rule out psychosis related to general medical condition, pituitary tumor. 4. Obstructive sleep apnea, noncompliance with CPAP. REASON FOR ADMISSION/BRIEF HISTORY This patient is a 57-year-old, , male who presented to the Emergency Department after having been brought in by police when it was reported that he was wandering into the streets knocking on random doors looking for someone who did not live there. Patient reported that he felt there were bodies in his home. Patient was transported to the Emergency Room for further evaluation and treatment where he was placed on an emergency fdc due to bizarre behavior and agitation, being a danger to himself and others. Patient with known diagnosis of obstructive sleep apnea, although has been noncompliant with his CPAP at home, which had possibly contributed to his psychosis due to lack of sleep. He has also been diagnosed with a pituitary tumor with followup scheduled with a pituitary specialist this upcoming week. Patient has also been prescribed Effexor XR and had been taking the second dose at night, which could have contributed to sleep loss and psychosis. Patient was encouraged to use CPAP during his hospitalization. It was noted that there had been some moisture leakage in the basement where he is living at his son's home, which was encouraged to be evaluate to rule out mold exposure. His prescription was changed to b.i.d. dosing of his Effexor XR, a.m. and noon dosing with improved sleep and resolution of his psychosis while on the unit. Patient reports minimal depression or anxiety. Mood is improved. Sleep improved. No symptoms of cherri or psychosis. Patient denies suicidal or homicidal ideation. Treatment team met with son per conference call, who was agreeable with patient discharging today and will ensure CPAP evaluation by home oxygen company, home to be inspected for mold, and follow up with outpatient appointments as scheduled to assist with continued stabilization of patient on an outpatient basis. PHYSICAL EXAMINATION Please see emergency room notes for physical examination. VITAL SIGNS: Vital signs at time of admission include temperature of 98, pulse of 66, blood pressure 125/72, pulse oximetry 93% on room air. Vital signs at time of discharge include temperature of 97.7, pulse of 69, respiratory rate 16 , blood pressure 118/72, pulse oximetry 98% on 2L of oxygen. LABORATORY DATA CBC within normal limits. Neutrophil percent high at 74.5, lymphocyte percent low at 15.7. Chemistry panel within normal limits with exception of elevated AST at 36, low carbon dioxide at 21. Thyroid stimulating hormone is 1.60. Urine screen within normal limits with the exception of a high amount of ketones at 20. Toxicology including salicylates, acetaminophen, serum alcohol level less than 10. Urine screen negative for opiates, barbiturates, tricyclics , phencyclidines, amphetamines, benzodiazepines, cocaine, and cannabinoids. MENTAL STATUS EXAMINATION GENERAL APPEARANCE, BEHAVIOR, AND ATTITUDE: This is a calm, cooperative, polite , 57-year-old male who is interviewed by team members at time of discharge. There is are no bizarre mannerisms or tics. No periods of tearfulness. SPEECH: Slightly slow at times. Regular rhythm, volume, tone. MOOD: Euthymic, smiling, interacting well. AFFECT: Minimal constricted, mood congruent. THOUGHT PROCESSES: Logical, goal directed. No loose associations or flight of ideas. THOUGHT CONTENT: Free of auditory or visual hallucinations, ideas of reference , thought broadcasting, delusions, obsessions, compulsions. Patient denying suicidal or homicidal ideations. SENSORIUM: Clear. COGNITION: Alert and oriented to person, place, time, and situation. MEMORY: Immediate, recent, and remote estimated intact. INTELLIGENCE: Average based on interview. INSIGHT AND JUDGMENT: Considered intact as patient agreeable with ongoing evaluation on an outpatient basis to assist with his mental and physical health concerns. CONSULTATIONS None. TREATMENT Patient participated in individual and group therapy. His Effexor XR was switched to b.i.d. dosing a.m. and noon versus a.m. and p.m. to assist with his sleep. He was encouraged use of his CPAP with partial compliance will on the unit. His sleep has improved, and psychosis has resolved. Patient's mood and affect stable at time of discharge interview. CONDITION OF PATIENT ON DISCHARGE He is stable, considered a minimal risk to himself or others. DISPOSITION This patient is discharged to home. He is to follow up with his outpatient medication provider and individual therapist as scheduled. He is to follow up with his medical providers and pituitary specialist with scheduled appointments prior to discharge. A conference call was made to his son at time of discharge interview to ensure there were no reservations with patient returning to his home, currently lives with son,. Son will evaluate the basement apartment in which patient is residing in order to assess for mold as there has been some recent moisture leaking into this area. Patient is encouraged to consult with his home oxygen company for appropriate cleaning of his CPAP device. He is encouraged increased compliance for his obstructive sleep apnea diagnosis. Patient is encouraged to take medications only as prescribed. DISCHARGE MEDICATIONS 1. Cozaar 50 mg one p.o. daily. 2. Lamisil cream applied b.i.d. as needed. 3. Gabapentin 300 mg one p.o. bid. 4. Vitamin D3, 1000 International Units one p.o. daily. 5. Effexor 150 mg one p.o. a.m. and at noon. Avoid p.m. dosing. 6. Albuterol sulfate two inhalations b.i.d. p.r.n. shortness of breath. 7. Multivitamin one p.o. daily. Patient again encouraged to take medications only as prescribed. Encouraged increased compliance with CPAP and to engage with outpatient therapy, medication provider, and endocrine specialist for pituitary followup as scheduled. The crisis line number is provided. Encouraged use for worsening symptoms. Patient is to return to the Emergency Room for suicidal or homicidal ideation. Patient is competent and agreeable with the above discharge plan. BELEN
== END 2018-01-08 16:00 | disposition home or self-care (01) | DRG 884 ==
LOC: BHS 19:14
PROVIDERS: ADMIT Psychiatry & Neurology Psychiatry; ATTEND Psychiatry & Neurology Psychiatry
DX: F06.8 Other specified mental disorders due to known physiological condition (principal); F13.251 Sedative, hypnotic or anxiolytic dependence with sedative, hypnotic or anxiolytic-induced psychotic disorder with hallucinations; T43.215A Adverse effect of selective serotonin and norepinephrine reuptake inhibitors, initial encounter; G47.33 Obstructive sleep apnea (adult) (pediatric); G89.29 Other chronic pain; D49.7 Neoplasm of unspecified behavior of endocrine glands and other parts of nervous system; J45.909 Unspecified asthma, uncomplicated; Z98.1 Arthrodesis status; Z91.19 Patient's noncompliance with other medical treatment and regimen; Z99.81 Dependence on supplemental oxygen; Z88.0 Allergy status to penicillin; Z88.1 Allergy status to other antibiotic agents
CPT/HCPCS: 36415; 82306; 84153; 84439; 84481

== ENCOUNTER 2018-01-10 15:43 | Inpatient (IN) | payer SELFPAY ==
[~2018-01-10] VITALS: Ht 177.8 cm; Wt 90.3 kg
[~2018-01-10 15:43] MED LIST changes: -DEXT15DR2 OP; -DIPH-740 PO; -DOCU-416 PO; -NICO-219 BC; -OLAN10TA21 PO; -SODI104S3; -TERB30CR11 TOP; -VENL75CA58 PO
[2018-01-10] MEDS ORDERED: NS(*) 0.9% 1000 ML BAG 1,000 ML IV ONE (15:56)
[2018-01-10] MEDS ORDERED: LORazepam 2 MG/ML VIAL IVP ONE (16:00)
--- NOTE | 2018-01-10 16:01 | EKG ---
FACILITY: [facility] PATIENT NAME: JESSICA IGNACIO : [id number] MR: [id number] V: [id number] EXAM DATE: ORDERING PHYSICIAN: REBECCA ELISE TECHNOLOGIST: JACQUELINE Nickerson Reason : CP Blood Pressure : / mmHG Vent. Rate : 070 BPM Atrial Rate : 070 BPM P-R Int : 148 ms QRS Dur : 102 ms QT Int : 380 ms P-R-T Axes : 059 -39 014 degrees QTc Int : 410 ms Normal sinus rhythm Left axis deviation Abnormal ECG When compared with ECG of 31-OCT-2014 17:39, No significant change was found Confirmed by CHAD SWEET ([id number]) on 01/11/2018 6:27:40 AM Referred By: CED Confirmed By:CHAD SWEET
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
[2018-01-10 16:23] LABS: PLATELET COUNT, AUTOMATED 321 K/uL (150-450)
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
[2018-01-10] MEDS ORDERED: LEVOFLOXACIN 500 MG TAB PO ONE (17:05)
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
[2018-01-10] MEDS ORDERED: diphenhydrAMINE 25 MG CAP ONE (18:09)
[2018-01-10] MEDS ORDERED: OLANZapine 5 MG TAB ONE (18:09)
[2018-01-10] MEDS ORDERED: OLANZapine 5 MG TAB PO ONE (18:10)
[2018-01-10] MEDS ORDERED: diphenhydrAMINE 25 MG CAP PO ONE (18:10)
[2018-01-10] MEDS ORDERED: TERBINAFINE 1% TP PRN (19:25)
[2018-01-10] MEDS ORDERED: MAG HYD/AL HYD/SIMETH 30ML UDC PO PRN (19:25)
[2018-01-10 20:50] VITALS: BP 139/85
[2018-01-10] MEDS ORDERED: OLANZapine 5 MG TAB PO SCH (21:00)
[2018-01-10] MEDS: GABAPENTIN 300 MG CAP PO SCH (21:00)
[2018-01-10] MEDS ORDERED: diphenhydrAMINE 25 MG CAP PO SCH (21:00)
[2018-01-11 05:23] VITALS: BP 137/89
[2018-01-11 08:25] VITALS: BP 117/60
[2018-01-11] MEDS: CHOLECALCIFEROL 1000 UNIT TAB PO SCH (08:30)
[2018-01-11] MEDS: GABAPENTIN 300 MG CAP PO SCH ×2 (08:30→20:23)
[2018-01-11] MEDS: VENLAFAXINE XR 75 MG CAPCR PO SCH (08:30)
[2018-01-11] MEDS: MULTIVITAMINS PO SCH (08:30)
[2018-01-11] MEDS: LOSARTAN POTASSIUM 50 MG TAB PO SCH (08:45)
[2018-01-11] MEDS ORDERED: VENLAFAXINE XR 75 MG CAPCR PO SCH (09:00)
[2018-01-11] MEDS ORDERED: GABA-549 PO (12:56)
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
[2018-01-11] MEDS: LEVOFLOXACIN 500 MG TAB PO SCH (16:56)
[2018-01-11 20:17] VITALS: BP 118/70
[2018-01-11] MEDS: diphenhydrAMINE 25 MG CAP PO SCH (20:23)
[2018-01-11] MEDS: OLANZapine 5 MG TAB PO SCH (20:23)
[2018-01-12 05:31] VITALS: BP 114/62
[2018-01-12 08:00] VITALS: BP 110/70
[2018-01-12] MEDS: LOSARTAN POTASSIUM 50 MG TAB PO SCH (08:20)
[2018-01-12] MEDS: CHOLECALCIFEROL 1000 UNIT TAB PO SCH (08:21)
[2018-01-12] MEDS: GABAPENTIN 300 MG CAP PO SCH ×2 (08:21→21:30)
[2018-01-12] MEDS: MULTIVITAMINS PO SCH (08:21)
[2018-01-12] MEDS: VENLAFAXINE XR 75 MG CAPCR PO SCH ×2 (08:21→13:14)
--- NOTE | 2018-01-12 10:21 | BHS Progress Note ---
BHS - Subjective Progress Notes Subjective Patient much improved today on QHS zyprexa, and using c-pap machine at night. Patient very cooperative with staff and family today, appetite and sleep intact. Psychosis resolving. Will continue treatment. Suicidal Ideation: None Homicidal Ideation: None S - Objective Physical Exam Vital Signs Vital Signs Date Time Temp Pulse Resp B/P (MAP) Pulse Ox O2 Delivery O2 Flow Rate FiO2 01/12/18 05:31 98.0 54 15 114/62 (79) 100 CPAP 1.0 01/12/18 00:50 45.0 Hematology Test 01/10/18 16:09 01/10/18 16:20 Red Blood Count 5.10 M/uL (4.00-5.60) Mean Corpuscular Volume 89.0 fL (80.0-96.0) Mean Corpuscular Hemoglobin 30.9 pg (26.0-33.0) Mean Corpuscular Hemoglobin Concent 34.7 g/dL (32.0-36.0) Red Cell Distribution Width 14.0 % (11.5-14.5) Mean Platelet Volume 7.4 fL (7.2-11.1) Neutrophils (%) (Auto) 71.6 % (39.4-72.5) Lymphocytes (%) (Auto) 16.0 % (17.6-49.6) Monocytes (%) (Auto) 7.4 % (4.1-12.4) Eosinophils (%) (Auto) 4.3 % (0.4-6.7) Basophils (%) (Auto) 0.7 % (0.3-1.4) Nucleated RBC Relative Count (auto) 0.0 /100WBC Neutrophils # (Auto) 5.1 K/uL (2.0-7.4) Lymphocytes # (Auto) 1.1 K/uL (1.3-3.6) Monocytes # (Auto) 0.5 K/uL (0.3-1.0) Eosinophils # (Auto) 0.3 K/uL (0.0-0.5) Basophils # (Auto) 0.0 K/uL (0.0-0.1) Nucleated RBC Absolute Count (auto) 0.00 K/uL Sodium Level 138 mmol/L (137-145) Potassium Level 4.2 mmol/L (3.5-5.0) Chloride Level 101 mmol/L (98-107) Carbon Dioxide Level 26 mmol/L (22-30) Blood Urea Nitrogen 10 mg/dl (9-21) Creatinine 0.90 mg/dl (0.66-1.25) Glomerular Filtration Rate Calc > 60.0 Random Glucose 106 mg/dl (75-110) Calcium Level 9.0 mg/dl (8.4-10.2) Magnesium Level 1.9 mg/dl (1.7-2.2) Total Bilirubin 0.6 mg/dl (0.2-1.3) Aspartate Amino Transf (AST/SGOT) 49 U/L (0-35) Alanine Aminotransferase (ALT/SGPT) 51 U/L (0-56) Alkaline Phosphatase 66 U/L (0-126) Total Protein 7.3 g/dl (6.3-8.2) Albumin 4.2 g/dl (3.5-5.0) Thyroid Stimulating Hormone (TSH) 1.08 uIU/ml (0.46-4.68) Salicylates Level < 10 mg/L Salicylate Last Dose Date unk Acetaminophen Level < 10 ug/ml Serum Alcohol < 10 mg/dl Urine Color Yellow Urine Clarity Clear Urine pH 6.0 pH (4.8-9.5) Urine Specific [place] 1.010 Urine Protein Negative mg/dL (NEGATIVE) Urine Glucose (UA) Negative mg/dL (NEGATIVE) Urine Ketones Negative mg/dL (NEGATIVE) Urine Blood Negative (NEGATIVE) Urine Nitrite Negative (NEGATIVE) Urine Bilirubin Negative (NEGATIVE) Urine Urobilinogen Negative mg/dL (0.2-1.9) Urine Leukocyte Esterase Negative (NEGATIVE) Urine RBC <1 /HPF (0-2/HPF) Urine WBC 1 /HPF (0-5/HPF) Urine Squamous Epithelial Cells None /LPF (</=FEW) Urine Bacteria Negative /HPF (NONE-FEW) Urine Mucus None /HPF (NONE-FEW) Urine Opiates Screen Negative Urine Barbiturates Screen Negative Ur Tricyclic Antidepressants Screen Negative Urine Phencyclidine Screen Negative Urine Amphetamines Screen Negative Urine Benzodiazepines Screen Negative Urine Cocaine Screen Negative Urine Cannabinoids Screen Negative Chemistry Test 01/10/18 16:09 01/10/18 16:20 White Blood Count 7.1 k/uL (4.5-11.0) Red Blood Count 5.10 M/uL (4.00-5.60) Hemoglobin 15.8 g/dL (14.0-18.0) Hematocrit 45.4 % (42.0-52.0) Mean Corpuscular Volume 89.0 fL (80.0-96.0) Mean Corpuscular Hemoglobin 30.9 pg (26.0-33.0) Mean Corpuscular Hemoglobin Concent 34.7 g/dL (32.0-36.0) Red Cell Distribution Width 14.0 % (11.5-14.5) Platelet Count 321 K/uL (150-450) Mean Platelet Volume 7.4 fL (7.2-11.1) Neutrophils (%) (Auto) 71.6 % (39.4-72.5) Lymphocytes (%) (Auto) 16.0 % (17.6-49.6) Monocytes (%) (Auto) 7.4 % (4.1-12.4) Eosinophils (%) (Auto) 4.3 % (0.4-6.7) Basophils (%) (Auto) 0.7 % (0.3-1.4) Nucleated RBC Relative Count (auto) 0.0 /100WBC Neutrophils # (Auto) 5.1 K/uL (2.0-7.4) Lymphocytes # (Auto) 1.1 K/uL (1.3-3.6) Monocytes # (Auto) 0.5 K/uL (0.3-1.0) Eosinophils # (Auto) 0.3 K/uL (0.0-0.5) Basophils # (Auto) 0.0 K/uL (0.0-0.1) Nucleated RBC Absolute Count (auto) 0.00 K/uL Glomerular Filtration Rate Calc > 60.0 Calcium Level 9.0 mg/dl (8.4-10.2) Magnesium Level 1.9 mg/dl (1.7-2.2) Total Bilirubin 0.6 mg/dl (0.2-1.3) Aspartate Amino Transf (AST/SGOT) 49 U/L (0-35) Alanine Aminotransferase (ALT/SGPT) 51 U/L (0-56) Alkaline Phosphatase 66 U/L (0-126) Total Protein 7.3 g/dl (6.3-8.2) Albumin 4.2 g/dl (3.5-5.0) Thyroid Stimulating Hormone (TSH) 1.08 uIU/ml (0.46-4.68) Salicylates Level < 10 mg/L Salicylate Last Dose Date unk Acetaminophen Level < 10 ug/ml Serum Alcohol < 10 mg/dl Urine Color Yellow Urine Clarity Clear Urine pH 6.0 pH (4.8-9.5) Urine Specific [place] 1.010 Urine Protein Negative mg/dL (NEGATIVE) Urine Glucose (UA) Negative mg/dL (NEGATIVE) Urine Ketones Negative mg/dL (NEGATIVE) Urine Blood Negative (NEGATIVE) Urine Nitrite Negative (NEGATIVE) Urine Bilirubin Negative (NEGATIVE) Urine Urobilinogen Negative mg/dL (0.2-1.9) Urine Leukocyte Esterase Negative (NEGATIVE) Urine RBC <1 /HPF (0-2/HPF) Urine WBC 1 /HPF (0-5/HPF) Urine Squamous Epithelial Cells None /LPF (</=FEW) Urine Bacteria Negative /HPF (NONE-FEW) Urine Mucus None /HPF (NONE-FEW) Urine Opiates Screen Negative Urine Barbiturates Screen Negative Ur Tricyclic Antidepressants Screen Negative Urine Phencyclidine Screen Negative Urine Amphetamines Screen Negative Urine Benzodiazepines Screen Negative Urine Cocaine Screen Negative Urine Cannabinoids Screen Negative Toxicology Test 01/10/18 16:09 01/10/18 16:20 Salicylates Level < 10 mg/L Salicylate Last Dose Date unk Acetaminophen Level < 10 ug/ml Serum Alcohol < 10 mg/dl Urine Opiates Screen Negative Urine Barbiturates Screen Negative Ur Tricyclic Antidepressants Screen Negative Urine Phencyclidine Screen Negative Urine Amphetamines Screen Negative Urine Benzodiazepines Screen Negative Urine Cocaine Screen Negative Urine Cannabinoids Screen Negative Urinalysis Test 01/10/18 16:20 Urine Color Yellow Urine Clarity Clear Urine pH 6.0 pH (4.8-9.5) Urine Specific [place] 1.010 Urine Protein Negative mg/dL (NEGATIVE) Urine Glucose (UA) Negative mg/dL (NEGATIVE) Urine Ketones Negative mg/dL (NEGATIVE) Urine Blood Negative (NEGATIVE) Urine Nitrite Negative (NEGATIVE) Urine Bilirubin Negative (NEGATIVE) Urine Urobilinogen Negative mg/dL (0.2-1.9) Urine Leukocyte Esterase Negative (NEGATIVE) Urine RBC <1 /HPF (0-2/HPF) Urine WBC 1 /HPF (0-5/HPF) Urine Squamous Epithelial Cells None /LPF (</=FEW) Urine Bacteria Negative /HPF (NONE-FEW) Urine Mucus None /HPF (NONE-FEW) Muscle Strength and Tone: WNL Gait and Station: Steady [facility] Medications Reviewed: Side Effects, Benefits of Medication, Risks Allergies Reviewed: Yes Mental Status Exam General Appearance: Casual, Well Groomed, Good Eye Contact, Cooperative, Polite , Good Interaction, No Unkept, No Tearful, No Psychomotor Agitation, No Psychomotor Retardation, No Bizarre Mannerisms, No Tics Speech: Clear, Spontaneous, Normal Rate, Normal Rhythm, Normal Volume, Normal Tone, No Slurred, No Garbled, No Rambling, No Inappropriate Mood: Dysthmic/Depressed (improving) Affect: Full and Appropriate, Calm, Neutral, No Withdrawn, No Tearful, No Anxious, No Agitated Thought Process: Organized, Logical, Goal Directed, No Loose Associations, No Flight of Ideas Thought Content: No Suicidal Ideation, No Homicidal Ideation, Delusions ( paranoid type, resolving.), No Visual Hallucinations, Ideas of Reference Sensorium: Clear Cognition: Alert & Oriented-Person, Alert & Oriented-Place, Alert & Oriented- Time, No [id number]-[id number] Memory: Immediate, Recent, Remote Intelligence: Below Average (slightly) Insight Judgment: Poor (improving) Result Diagram: 01/10/18 1609 01/10/18 1609 [facility] Assessment and Plan [id number] Encounter Date: Jan 12, 2018 [id number] Encounter Time: 09:00 [facility] Plan: Necessary Precautions, Individual/Group Therapy, Admin/Titrate Meds, Educate Patient Tobacco Medications: Not Appropriate Condition Multpiple Antipsychotics Used: No Problems: (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 Last Edited By: Anay Rhoades on Jan 12, 2018 10:10 Status: Chronic Condition 1. continue treatment. 2. no medication changes. 3. based on immediate return to unit, will have patient remain on the unit at least through the weekend, in order to solidify success at discharge ANAY RHOADES MD Jan 12, 2018 10:21
[2018-01-12] MEDS: NICOTINE POLACRILEX 2 MG GUM PO PRN (10:30)
[2018-01-12] MEDS: LEVOFLOXACIN 500 MG TAB PO SCH (17:27)
[2018-01-12 20:29] VITALS: BP 133/90
[2018-01-12] MEDS: diphenhydrAMINE 25 MG CAP PO SCH (21:30)
[2018-01-12] MEDS: OLANZapine 5 MG TAB PO SCH (21:30)
[2018-01-13 02:53] VITALS: BP 123/72
[2018-01-13 07:55] VITALS: BP 120/82
[2018-01-13] MEDS: VENLAFAXINE XR 75 MG CAPCR PO SCH ×2 (08:31→12:21)
[2018-01-13] MEDS: GABAPENTIN 300 MG CAP PO SCH ×2 (08:31→20:50)
[2018-01-13] MEDS: MULTIVITAMINS PO SCH (08:31)
[2018-01-13] MEDS: DOCUSATE SODIUM 100 MG CAP PO SCH ×2 (09:07→20:49)
[2018-01-13] MEDS: CHOLECALCIFEROL 1000 UNIT TAB PO SCH (09:07)
--- NOTE | 2018-01-13 09:56 | BHS Progress Note ---
BHS - Subjective Progress Notes Subjective Patient doing well on the unit, very polite and cooperative, sleeping well, appetite good, some constipation likely related to zyprexa. Thoughts are clear today with no evidence of psychotic exacerbation. Wearing C-pap at night. Levaquin administered for sinusitis, with no exacerbation of psychosis. Will continue to treat/ and monitor this patients behavior as he has recently quickly failed as an outpatient after similar admission. Suicidal Ideation: None Homicidal Ideation: None BHS - Objective Physical Exam Vital Signs Vital Signs Date Time Temp Pulse Resp B/P (MAP) Pulse Ox O2 Delivery O2 Flow Rate FiO2 01/13/18 07:55 98.6 54 18 120/82 (95) 95 Room Air 01/13/18 01:01 45.0 01/12/18 05:31 1.0 Hematology Test 01/10/18 16:09 01/10/18 16:20 Red Blood Count 5.10 M/uL (4.00-5.60) Mean Corpuscular Volume 89.0 fL (80.0-96.0) Mean Corpuscular Hemoglobin 30.9 pg (26.0-33.0) Mean Corpuscular Hemoglobin Concent 34.7 g/dL (32.0-36.0) Red Cell Distribution Width 14.0 % (11.5-14.5) Mean Platelet Volume 7.4 fL (7.2-11.1) Neutrophils (%) (Auto) 71.6 % (39.4-72.5) Lymphocytes (%) (Auto) 16.0 % (17.6-49.6) Monocytes (%) (Auto) 7.4 % (4.1-12.4) Eosinophils (%) (Auto) 4.3 % (0.4-6.7) Basophils (%) (Auto) 0.7 % (0.3-1.4) Nucleated RBC Relative Count (auto) 0.0 /100WBC Neutrophils # (Auto) 5.1 K/uL (2.0-7.4) Lymphocytes # (Auto) 1.1 K/uL (1.3-3.6) Monocytes # (Auto) 0.5 K/uL (0.3-1.0) Eosinophils # (Auto) 0.3 K/uL (0.0-0.5) Basophils # (Auto) 0.0 K/uL (0.0-0.1) Nucleated RBC Absolute Count (auto) 0.00 K/uL Sodium Level 138 mmol/L (137-145) Potassium Level 4.2 mmol/L (3.5-5.0) Chloride Level 101 mmol/L (98-107) Carbon Dioxide Level 26 mmol/L (22-30) Blood Urea Nitrogen 10 mg/dl (9-21) Creatinine 0.90 mg/dl (0.66-1.25) Glomerular Filtration Rate Calc > 60.0 Random Glucose 106 mg/dl (75-110) Calcium Level 9.0 mg/dl (8.4-10.2) Magnesium Level 1.9 mg/dl (1.7-2.2) Total Bilirubin 0.6 mg/dl (0.2-1.3) Aspartate Amino Transf (AST/SGOT) 49 U/L (0-35) Alanine Aminotransferase (ALT/SGPT) 51 U/L (0-56) Alkaline Phosphatase 66 U/L (0-126) Total Protein 7.3 g/dl (6.3-8.2) Albumin 4.2 g/dl (3.5-5.0) Thyroid Stimulating Hormone (TSH) 1.08 uIU/ml (0.46-4.68) Salicylates Level < 10 mg/L Salicylate Last Dose Date unk Acetaminophen Level < 10 ug/ml Serum Alcohol < 10 mg/dl Urine Color Yellow Urine Clarity Clear Urine pH 6.0 pH (4.8-9.5) Urine Specific [place] 1.010 Urine Protein Negative mg/dL (NEGATIVE) Urine Glucose (UA) Negative mg/dL (NEGATIVE) Urine Ketones Negative mg/dL (NEGATIVE) Urine Blood Negative (NEGATIVE) Urine Nitrite Negative (NEGATIVE) Urine Bilirubin Negative (NEGATIVE) Urine Urobilinogen Negative mg/dL (0.2-1.9) Urine Leukocyte Esterase Negative (NEGATIVE) Urine RBC <1 /HPF (0-2/HPF) Urine WBC 1 /HPF (0-5/HPF) Urine Squamous Epithelial Cells None /LPF (</=FEW) Urine Bacteria Negative /HPF (NONE-FEW) Urine Mucus None /HPF (NONE-FEW) Urine Opiates Screen Negative Urine Barbiturates Screen Negative Ur Tricyclic Antidepressants Screen Negative Urine Phencyclidine Screen Negative Urine Amphetamines Screen Negative Urine Benzodiazepines Screen Negative Urine Cocaine Screen Negative Urine Cannabinoids Screen Negative Chemistry Test 01/10/18 16:09 01/10/18 16:20 White Blood Count 7.1 k/uL (4.5-11.0) Red Blood Count 5.10 M/uL (4.00-5.60) Hemoglobin 15.8 g/dL (14.0-18.0) Hematocrit 45.4 % (42.0-52.0) Mean Corpuscular Volume 89.0 fL (80.0-96.0) Mean Corpuscular Hemoglobin 30.9 pg (26.0-33.0) Mean Corpuscular Hemoglobin Concent 34.7 g/dL (32.0-36.0) Red Cell Distribution Width 14.0 % (11.5-14.5) Platelet Count 321 K/uL (150-450) Mean Platelet Volume 7.4 fL (7.2-11.1) Neutrophils (%) (Auto) 71.6 % (39.4-72.5) Lymphocytes (%) (Auto) 16.0 % (17.6-49.6) Monocytes (%) (Auto) 7.4 % (4.1-12.4) Eosinophils (%) (Auto) 4.3 % (0.4-6.7) Basophils (%) (Auto) 0.7 % (0.3-1.4) Nucleated RBC Relative Count (auto) 0.0 /100WBC Neutrophils # (Auto) 5.1 K/uL (2.0-7.4) Lymphocytes # (Auto) 1.1 K/uL (1.3-3.6) Monocytes # (Auto) 0.5 K/uL (0.3-1.0) Eosinophils # (Auto) 0.3 K/uL (0.0-0.5) Basophils # (Auto) 0.0 K/uL (0.0-0.1) Nucleated RBC Absolute Count (auto) 0.00 K/uL Glomerular Filtration Rate Calc > 60.0 Calcium Level 9.0 mg/dl (8.4-10.2) Magnesium Level 1.9 mg/dl (1.7-2.2) Total Bilirubin 0.6 mg/dl (0.2-1.3) Aspartate Amino Transf (AST/SGOT) 49 U/L (0-35) Alanine Aminotransferase (ALT/SGPT) 51 U/L (0-56) Alkaline Phosphatase 66 U/L (0-126) Total Protein 7.3 g/dl (6.3-8.2) Albumin 4.2 g/dl (3.5-5.0) Thyroid Stimulating Hormone (TSH) 1.08 uIU/ml (0.46-4.68) Salicylates Level < 10 mg/L Salicylate Last Dose Date unk Acetaminophen Level < 10 ug/ml Serum Alcohol < 10 mg/dl Urine Color Yellow Urine Clarity Clear Urine pH 6.0 pH (4.8-9.5) Urine Specific [place] 1.010 Urine Protein Negative mg/dL (NEGATIVE) Urine Glucose (UA) Negative mg/dL (NEGATIVE) Urine Ketones Negative mg/dL (NEGATIVE) Urine Blood Negative (NEGATIVE) Urine Nitrite Negative (NEGATIVE) Urine Bilirubin Negative (NEGATIVE) Urine Urobilinogen Negative mg/dL (0.2-1.9) Urine Leukocyte Esterase Negative (NEGATIVE) Urine RBC <1 /HPF (0-2/HPF) Urine WBC 1 /HPF (0-5/HPF) Urine Squamous Epithelial Cells None /LPF (</=FEW) Urine Bacteria Negative /HPF (NONE-FEW) Urine Mucus None /HPF (NONE-FEW) Urine Opiates Screen Negative Urine Barbiturates Screen Negative Ur Tricyclic Antidepressants Screen Negative Urine Phencyclidine Screen Negative Urine Amphetamines Screen Negative Urine Benzodiazepines Screen Negative Urine Cocaine Screen Negative Urine Cannabinoids Screen Negative Toxicology Test 01/10/18 16:09 01/10/18 16:20 Salicylates Level < 10 mg/L Salicylate Last Dose Date unk Acetaminophen Level < 10 ug/ml Serum Alcohol < 10 mg/dl Urine Opiates Screen Negative Urine Barbiturates Screen Negative Ur Tricyclic Antidepressants Screen Negative Urine Phencyclidine Screen Negative Urine Amphetamines Screen Negative Urine Benzodiazepines Screen Negative Urine Cocaine Screen Negative Urine Cannabinoids Screen Negative Urinalysis Test 01/10/18 16:20 Urine Color Yellow Urine Clarity Clear Urine pH 6.0 pH (4.8-9.5) Urine Specific [place] 1.010 Urine Protein Negative mg/dL (NEGATIVE) Urine Glucose (UA) Negative mg/dL (NEGATIVE) Urine Ketones Negative mg/dL (NEGATIVE) Urine Blood Negative (NEGATIVE) Urine Nitrite Negative (NEGATIVE) Urine Bilirubin Negative (NEGATIVE) Urine Urobilinogen Negative mg/dL (0.2-1.9) Urine Leukocyte Esterase Negative (NEGATIVE) Urine RBC <1 /HPF (0-2/HPF) Urine WBC 1 /HPF (0-5/HPF) Urine Squamous Epithelial Cells None /LPF (</=FEW) Urine Bacteria Negative /HPF (NONE-FEW) Urine Mucus None /HPF (NONE-FEW) Muscle Strength and Tone: WNL Gait and Station: Steady [facility] Medications Reviewed: Side Effects, Benefits of Medication, Risks Allergies Reviewed: Yes Mental Status Exam General Appearance: Casual, Well Groomed, Good Eye Contact, Cooperative, Polite , Good Interaction, No Unkept, No Tearful, No Psychomotor Agitation, No Psychomotor Retardation, No Bizarre Mannerisms, No Tics Speech: Clear, Spontaneous, Normal Rate, Normal Rhythm, Normal Volume, Normal Tone, No Slurred, No Garbled, No Rambling, No Inappropriate Mood: Dysthmic/Depressed (improving) Affect: Full and Appropriate, Calm, Neutral, No Withdrawn, No Tearful, No Anxious, No Agitated Thought Process: Organized, Logical, Goal Directed, No Loose Associations, No Flight of Ideas Thought Content: No Suicidal Ideation, No Homicidal Ideation, Delusions ( paranoid type, resolving.), No Visual Hallucinations, Ideas of Reference ( resolving ), No Obsessions, No Compulsions Sensorium: Clear Cognition: Alert & Oriented-Person, Alert & Oriented-Place, Alert & Oriented- Time, No [id number]-Kwncjzhtd Memory: Immediate, Recent, Remote Intelligence: Below Average (slightly) Insight Judgment: Poor (improving) Result Diagram: 01/10/18 1609 01/10/18 1609 [facility] Assessment and Plan [id number] Encounter Date: Jan 13, 2018 [id number] Encounter Time: 10:00 [facility] Plan: Necessary Precautions, Individual/Group Therapy, Admin/Titrate Meds, Educate Patient Tobacco Medications: Not Appropriate Condition Multpiple Antipsychotics Used: No Problems: (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 Last Edited By: Anay Rhoades on Jan 12, 2018 10:10 Status: Chronic Condition 1. stop Losartin 2. start colace 3. continue treatment. ANAY RHOADES MD Jan 13, 2018 09:55
[2018-01-13] MEDS: HYPROMELLOSE 0.4% LUB 15ML BTL OD PRN ×2 (12:51→18:37)
[2018-01-13 16:40] VITALS: BP 142/65
[2018-01-13] MEDS: LEVOFLOXACIN 500 MG TAB PO SCH (16:58)
[2018-01-13] MEDS: OLANZapine 5 MG TAB PO SCH (20:49)
[2018-01-13] MEDS: diphenhydrAMINE 25 MG CAP PO SCH (20:49)
[2018-01-14 06:19] VITALS: BP 126/87
[2018-01-14 07:45] VITALS: BP 122/90
[2018-01-14] MEDS: DOCUSATE SODIUM 100 MG CAP PO SCH ×2 (08:18→20:43)
[2018-01-14] MEDS: CHOLECALCIFEROL 1000 UNIT TAB PO SCH (08:19)
[2018-01-14] MEDS: GABAPENTIN 300 MG CAP PO SCH ×2 (08:19→20:43)
[2018-01-14] MEDS: VENLAFAXINE XR 75 MG CAPCR PO SCH ×2 (08:19→11:52)
[2018-01-14] MEDS: MULTIVITAMINS PO SCH (08:19)
[2018-01-14] MEDS: NICOTINE POLACRILEX 2 MG GUM PO PRN ×4 (08:52→22:08)
--- NOTE | 2018-01-14 09:54 | BHS Progress Note ---
BHS - Subjective Progress Notes Subjective Patient continues to improve, two sons present during treatment team meeting state that patient is very near if not at baseline. No longer having evidence of any gross exacerbation of psychosis today, appetite, sleep and mood okay today. Patient able to grasp humor quickly and remains very polite. Patient wearing C-pap machine on unit, and sons will work to repair home machine at [employer] today. Sinusitis appears to be resolving, will re-evaluate in the AM. No other concerns today. Suicidal Ideation: None Homicidal Ideation: None BHS - Objective Physical Exam Vital Signs Vital Signs Date Time Temp Pulse Resp B/P (MAP) Pulse Ox O2 Delivery O2 Flow Rate FiO2 01/14/18 07:45 97.7 53 16 122/90 (101) 98 Room Air 01/13/18 21:20 45.0 01/12/18 05:31 1.0 Hematology Test 01/10/18 16:09 01/10/18 16:20 Red Blood Count 5.10 M/uL (4.00-5.60) Mean Corpuscular Volume 89.0 fL (80.0-96.0) Mean Corpuscular Hemoglobin 30.9 pg (26.0-33.0) Mean Corpuscular Hemoglobin Concent 34.7 g/dL (32.0-36.0) Red Cell Distribution Width 14.0 % (11.5-14.5) Mean Platelet Volume 7.4 fL (7.2-11.1) Neutrophils (%) (Auto) 71.6 % (39.4-72.5) Lymphocytes (%) (Auto) 16.0 % (17.6-49.6) Monocytes (%) (Auto) 7.4 % (4.1-12.4) Eosinophils (%) (Auto) 4.3 % (0.4-6.7) Basophils (%) (Auto) 0.7 % (0.3-1.4) Nucleated RBC Relative Count (auto) 0.0 /100WBC Neutrophils # (Auto) 5.1 K/uL (2.0-7.4) Lymphocytes # (Auto) 1.1 K/uL (1.3-3.6) Monocytes # (Auto) 0.5 K/uL (0.3-1.0) Eosinophils # (Auto) 0.3 K/uL (0.0-0.5) Basophils # (Auto) 0.0 K/uL (0.0-0.1) Nucleated RBC Absolute Count (auto) 0.00 K/uL Sodium Level 138 mmol/L (137-145) Potassium Level 4.2 mmol/L (3.5-5.0) Chloride Level 101 mmol/L (98-107) Carbon Dioxide Level 26 mmol/L (22-30) Blood Urea Nitrogen 10 mg/dl (9-21) Creatinine 0.90 mg/dl (0.66-1.25) Glomerular Filtration Rate Calc > 60.0 Random Glucose 106 mg/dl (75-110) Calcium Level 9.0 mg/dl (8.4-10.2) Magnesium Level 1.9 mg/dl (1.7-2.2) Total Bilirubin 0.6 mg/dl (0.2-1.3) Aspartate Amino Transf (AST/SGOT) 49 U/L (0-35) Alanine Aminotransferase (ALT/SGPT) 51 U/L (0-56) Alkaline Phosphatase 66 U/L (0-126) Total Protein 7.3 g/dl (6.3-8.2) Albumin 4.2 g/dl (3.5-5.0) Thyroid Stimulating Hormone (TSH) 1.08 uIU/ml (0.46-4.68) Salicylates Level < 10 mg/L Salicylate Last Dose Date unk Acetaminophen Level < 10 ug/ml Serum Alcohol < 10 mg/dl Urine Color Yellow Urine Clarity Clear Urine pH 6.0 pH (4.8-9.5) Urine Specific [place] 1.010 Urine Protein Negative mg/dL (NEGATIVE) Urine Glucose (UA) Negative mg/dL (NEGATIVE) Urine Ketones Negative mg/dL (NEGATIVE) Urine Blood Negative (NEGATIVE) Urine Nitrite Negative (NEGATIVE) Urine Bilirubin Negative (NEGATIVE) Urine Urobilinogen Negative mg/dL (0.2-1.9) Urine Leukocyte Esterase Negative (NEGATIVE) Urine RBC <1 /HPF (0-2/HPF) Urine WBC 1 /HPF (0-5/HPF) Urine Squamous Epithelial Cells None /LPF (</=FEW) Urine Bacteria Negative /HPF (NONE-FEW) Urine Mucus None /HPF (NONE-FEW) Urine Opiates Screen Negative Urine Barbiturates Screen Negative Ur Tricyclic Antidepressants Screen Negative Urine Phencyclidine Screen Negative Urine Amphetamines Screen Negative Urine Benzodiazepines Screen Negative Urine Cocaine Screen Negative Urine Cannabinoids Screen Negative Chemistry Test 01/10/18 16:09 01/10/18 16:20 White Blood Count 7.1 k/uL (4.5-11.0) Red Blood Count 5.10 M/uL (4.00-5.60) Hemoglobin 15.8 g/dL (14.0-18.0) Hematocrit 45.4 % (42.0-52.0) Mean Corpuscular Volume 89.0 fL (80.0-96.0) Mean Corpuscular Hemoglobin 30.9 pg (26.0-33.0) Mean Corpuscular Hemoglobin Concent 34.7 g/dL (32.0-36.0) Red Cell Distribution Width 14.0 % (11.5-14.5) Platelet Count 321 K/uL (150-450) Mean Platelet Volume 7.4 fL (7.2-11.1) Neutrophils (%) (Auto) 71.6 % (39.4-72.5) Lymphocytes (%) (Auto) 16.0 % (17.6-49.6) Monocytes (%) (Auto) 7.4 % (4.1-12.4) Eosinophils (%) (Auto) 4.3 % (0.4-6.7) Basophils (%) (Auto) 0.7 % (0.3-1.4) Nucleated RBC Relative Count (auto) 0.0 /100WBC Neutrophils # (Auto) 5.1 K/uL (2.0-7.4) Lymphocytes # (Auto) 1.1 K/uL (1.3-3.6) Monocytes # (Auto) 0.5 K/uL (0.3-1.0) Eosinophils # (Auto) 0.3 K/uL (0.0-0.5) Basophils # (Auto) 0.0 K/uL (0.0-0.1) Nucleated RBC Absolute Count (auto) 0.00 K/uL Glomerular Filtration Rate Calc > 60.0 Calcium Level 9.0 mg/dl (8.4-10.2) Magnesium Level 1.9 mg/dl (1.7-2.2) Total Bilirubin 0.6 mg/dl (0.2-1.3) Aspartate Amino Transf (AST/SGOT) 49 U/L (0-35) Alanine Aminotransferase (ALT/SGPT) 51 U/L (0-56) Alkaline Phosphatase 66 U/L (0-126) Total Protein 7.3 g/dl (6.3-8.2) Albumin 4.2 g/dl (3.5-5.0) Thyroid Stimulating Hormone (TSH) 1.08 uIU/ml (0.46-4.68) Salicylates Level < 10 mg/L Salicylate Last Dose Date unk Acetaminophen Level < 10 ug/ml Serum Alcohol < 10 mg/dl Urine Color Yellow Urine Clarity Clear Urine pH 6.0 pH (4.8-9.5) Urine Specific [place] 1.010 Urine Protein Negative mg/dL (NEGATIVE) Urine Glucose (UA) Negative mg/dL (NEGATIVE) Urine Ketones Negative mg/dL (NEGATIVE) Urine Blood Negative (NEGATIVE) Urine Nitrite Negative (NEGATIVE) Urine Bilirubin Negative (NEGATIVE) Urine Urobilinogen Negative mg/dL (0.2-1.9) Urine Leukocyte Esterase Negative (NEGATIVE) Urine RBC <1 /HPF (0-2/HPF) Urine WBC 1 /HPF (0-5/HPF) Urine Squamous Epithelial Cells None /LPF (</=FEW) Urine Bacteria Negative /HPF (NONE-FEW) Urine Mucus None /HPF (NONE-FEW) Urine Opiates Screen Negative Urine Barbiturates Screen Negative Ur Tricyclic Antidepressants Screen Negative Urine Phencyclidine Screen Negative Urine Amphetamines Screen Negative Urine Benzodiazepines Screen Negative Urine Cocaine Screen Negative Urine Cannabinoids Screen Negative Toxicology Test 01/10/18 16:09 01/10/18 16:20 Salicylates Level < 10 mg/L Salicylate Last Dose Date unk Acetaminophen Level < 10 ug/ml Serum Alcohol < 10 mg/dl Urine Opiates Screen Negative Urine Barbiturates Screen Negative Ur Tricyclic Antidepressants Screen Negative Urine Phencyclidine Screen Negative Urine Amphetamines Screen Negative Urine Benzodiazepines Screen Negative Urine Cocaine Screen Negative Urine Cannabinoids Screen Negative Urinalysis Test 01/10/18 16:20 Urine Color Yellow Urine Clarity Clear Urine pH 6.0 pH (4.8-9.5) Urine Specific [place] 1.010 Urine Protein Negative mg/dL (NEGATIVE) Urine Glucose (UA) Negative mg/dL (NEGATIVE) Urine Ketones Negative mg/dL (NEGATIVE) Urine Blood Negative (NEGATIVE) Urine Nitrite Negative (NEGATIVE) Urine Bilirubin Negative (NEGATIVE) Urine Urobilinogen Negative mg/dL (0.2-1.9) Urine Leukocyte Esterase Negative (NEGATIVE) Urine RBC <1 /HPF (0-2/HPF) Urine WBC 1 /HPF (0-5/HPF) Urine Squamous Epithelial Cells None /LPF (</=FEW) Urine Bacteria Negative /HPF (NONE-FEW) Urine Mucus None /HPF (NONE-FEW) Muscle Strength and Tone: WNL Gait and Station: Steady [facility] Medications Reviewed: Side Effects, Benefits of Medication, Risks Allergies Reviewed: Yes Mental Status Exam General Appearance: Casual, Well Groomed, Good Eye Contact, Cooperative, Polite , Good Interaction, No Unkept, No Tearful, No Psychomotor Agitation, No Psychomotor Retardation, No Bizarre Mannerisms, No Tics Speech: Clear, Spontaneous, Normal Rate, Normal Rhythm, Normal Volume, Normal Tone, No Slurred, No Garbled, No Rambling, No Inappropriate Mood: Dysthmic/Depressed (improving) Affect: Full and Appropriate, Calm, Neutral, No Withdrawn, No Tearful, No Anxious, No Agitated Thought Process: Organized, Logical, Goal Directed, No Loose Associations, No Flight of Ideas Thought Content: No Suicidal Ideation, No Homicidal Ideation, Delusions ( paranoid type, resolving.), No Visual Hallucinations, Ideas of Reference ( resolving ), No Obsessions, No Compulsions Sensorium: Clear Cognition: Alert & Oriented-Person, Alert & Oriented-Place, Alert & Oriented- Time, No [id number]-[id number] Memory: Immediate, Recent, Remote Intelligence: Below Average (slightly) Insight Judgment: Poor (improving daily) Result Diagram: 01/10/18 1609 01/10/18 1609 [facility] Assessment and Plan [id number] Encounter Date: Jan 14, 2018 [id number] Encounter Time: 09:00 [facility] Plan: Necessary Precautions, Individual/Group Therapy, Admin/Titrate Meds, Educate Patient Tobacco Medications: Not Appropriate Condition Multpiple Antipsychotics Used: No Problems: (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 Last Edited By: Anay Rhoades on Jan 12, 2018 10:10 Status: Chronic Condition 1. continue treatment. 2. no medication changes. 3. likely discharge over weekend, patient in need of c-pap machine at home to be in place. ANAY RHOADES MD Jan 14, 2018 09:54
[2018-01-14] MEDS: HYPROMELLOSE 0.4% LUB 15ML BTL OD PRN ×3 (15:08→22:24)
[2018-01-14] MEDS: LEVOFLOXACIN 500 MG TAB PO SCH (16:51)
[2018-01-14 18:37] VITALS: BP 136/80
[2018-01-14] MEDS: OLANZapine 5 MG TAB PO SCH (20:43)
[2018-01-14] MEDS: diphenhydrAMINE 25 MG CAP PO SCH (20:43)
[2018-01-14] MEDS ORDERED: SALINE 0.65% NAS SPR 44 ML BTL PRN (21:20)
[2018-01-14] MEDS: ACETAMINOPHEN 325 MG TAB PO PRN (21:34)
--- NOTE | 2018-01-14 23:07 | RADIOLOGY IMAGING REPORT ---
FACILITY: [facility] PATIENT NAME: Jonathon Quiroz : 1960 MR: [id number] V: [id number] EXAM DATE: ORDERING PHYSICIAN: EMMA GIANG TECHNOLOGIST: Location: [facility] [place] Patient: Jonathon Quiroz : 1960 Visit/Account:[id number] Date of Sevice: 01/14/2018 RIGHT WRIST: Indication: Pain. Technique: 3 views were obtained. Comparison: None. Findings: There is no evidence of fracture, dislocation, or other acute deformity. There are degenera tive changes at the base of the thumb metacarpal and also near the proximal carpal bones. There is un iform mineralization of the skeletal structures. The periarticular soft tissues are unremarkable, as visualized. IMPRESSION: Chronic degenerative changes. No acute skeletal deformity. Report Dictated By: Ramsey Barry MD at 01/14/2018 10:59 PM Report E-Signed By: Ramsey Barry MD at 01/14/2018 11:03 PM [id number]
--- NOTE | 2018-01-14 23:08 | RADIOLOGY IMAGING REPORT ---
FACILITY: [facility] PATIENT NAME: Jonathon Quiroz : 1960 MR: [id number] V: [id number] EXAM DATE: ORDERING PHYSICIAN: EMMA GIANG TECHNOLOGIST: Location: [facility] [place] Patient: Jonathon Quiroz : 1960 Visit/Account:[id number] Date of Sevice: 01/14/2018 HUMERUS: Indication: Pain. Technique: Two views were obtained. Comparison: None. Findings: There is no evidence of fracture, dislocation, or other acute deformity. There are mild deg enerative changes near the medial epicondyle. There is uniform mineralization of the skeletal structu res. There is no evidence of soft tissue deformity or calcification. IMPRESSION: Negative right humerus. Report Dictated By: Ramsey Barry MD at 01/14/2018 11:03 PM Report E-Signed By: Ramsey Barry MD at 01/14/2018 11:04 PM WSN:[id number]
[2018-01-15 01:47] VITALS: BP 155/101
[2018-01-15] MEDS: DOCUSATE SODIUM 100 MG CAP PO SCH ×2 (07:58→20:26)
[2018-01-15] MEDS: VENLAFAXINE XR 75 MG CAPCR PO SCH ×2 (07:58→11:15)
[2018-01-15] MEDS: GABAPENTIN 300 MG CAP PO SCH ×2 (07:58→20:26)
[2018-01-15] MEDS: NICOTINE POLACRILEX 2 MG GUM PO PRN ×2 (07:58→22:58)
[2018-01-15] MEDS: CHOLECALCIFEROL 1000 UNIT TAB PO SCH (07:58)
[2018-01-15] MEDS: MULTIVITAMINS PO SCH (07:58)
--- NOTE | 2018-01-15 09:21 | BHS Progress Note ---
BHS - Subjective Progress Notes Subjective 'm doing good.," Reports stable MH, sleeping well, slight paranoia, denies AVH Sleeping well, has been compliant w/cpap Phone conference w/son Chaz, will have home cpap brought to [facility] for use tonight Contacting Heydi to determine setting adjustments needed Working w/[facility] re: [employer] benefits [id number] [employer], honorable discharge Suicidal Ideation: None Homicidal Ideation: None BHS - Objective Physical Exam Vital Signs Allergies Coded Allergies Penicillins (Verified Allergy, Intermediate, RASH, 12/10/17) erythromycin base (Verified Adverse Reaction, Mild, NAUSEA/VOMITING, 12/10/17) Muscle Strength and Tone: WNL Gait and Station: Steady S Medications Reviewed: Side Effects, Benefits of Medication, Risks Allergies Reviewed: Yes Mental Status Exam General Appearance: Casual, Well Groomed, Good Eye Contact, Cooperative, Polite , Good Interaction, No Unkept, No Tearful, No Psychomotor Agitation, No Psychomotor Retardation, No Bizarre Mannerisms, No Tics Speech: Clear, Spontaneous, Normal Rate, Normal Rhythm, Normal Volume, Normal Tone, No Slurred, No Garbled, No Rambling, No Inappropriate Mood: Dysthmic/Depressed (improving) Affect: Full and Appropriate, Calm, Neutral, No Withdrawn, No Tearful, No Anxious, No Agitated Thought Process: Organized, Logical, Goal Directed, No Loose Associations, No Flight of Ideas Thought Content: No Suicidal Ideation, No Homicidal Ideation, Delusions ( paranoid type, resolving.), No Visual Hallucinations, Ideas of Reference ( resolving ), No Obsessions, No Compulsions Sensorium: Clear Cognition: Alert & Oriented-Person, Alert & Oriented-Place, Alert & Oriented- Time, No Tkrbt-Jyrsirar-Oxoucuugz Memory: Immediate, Recent, Remote Intelligence: Below Average (slightly) Insight Judgment: Poor (improving daily) Lab Current Medications Medications (Trade) Dose Ordered Sig/Reema Route PRN Reason Start Time Stop Time Status Last Admin Dose Admin Sodium Chloride 1,000 ml @ 100 mls/hr Q10H ONCE IV 01/10/18 15:56 01/11/18 01:55 DC 01/10/18 16:12 100 MLS/HR Lorazepam (Ativan(*) 2 Mg/ ml Vial (Or Equiv)) 1 mg ONCE ONCE IVP 01/10/18 16:00 01/10/18 16:01 DC 01/10/18 16:12 1 MG Levofloxacin (Levaquin (*) 500 Mg Tab (Or Equiv)) 500 mg ONCE ONCE PO 01/10/18 17:05 01/10/18 17:06 DC 01/10/18 17:04 500 MG Diphenhydramine HCl (Benadryl(*) 25 Mg Cap (Or Equiv)) 50 mg ONCE ONCE PO 01/10/18 18:10 01/10/18 18:14 DC Olanzapine (zyPREXA (OR EQUIV)) 10 mg ONCE ONCE PO 01/10/18 18:10 01/10/18 18:14 DC Olanzapine (zyPREXA (OR EQUIV)) 10 mg STK-MED ONCE .ROUTE 01/10/18 18:09 01/10/18 18:15 DC 01/10/18 18:09 10 MG Diphenhydramine HCl (Benadryl(*) 25 Mg Cap (Or Equiv)) 50 mg STK-MED ONCE .ROUTE 01/10/18 18:09 01/10/18 18:15 DC 01/10/18 18:09 50 MG Levofloxacin (Levaquin (*) 500 Mg Tab (Or Equiv)) 500 mg QDAY@1700 PO 01/11/18 17:00 01/16/18 16:59 01/14/18 16:51 500 MG Olanzapine (zyPREXA (OR EQUIV)) 5 mg QHS PO 01/10/18 21:00 01/11/18 08:05 DC Diphenhydramine HCl (Benadryl(*) 25 Mg Cap (Or Equiv)) 25 mg QHS PO 01/10/18 21:00 01/11/18 08:05 DC Gabapentin (Neurontin(*) 300 Mg Cap (Or Equiv)) 600 mg QHS PO 01/10/18 21:00 02/09/18 20:59 01/14/18 20:43 600 MG Gabapentin (Neurontin(*) 300 Mg Cap (Or Equiv)) 300 mg QAM PO 01/11/18 09:00 02/10/18 08:59 01/15/18 07:58 300 MG Venlafaxine HCl (Effexor-Xr 75 Mg Capcr (Or Equiv)) 150 mg 0900,1200 PO 01/11/18 09:00 01/11/18 09:00 DC Cholecalciferol (Vitamin D3 1000 Unit Tab) 1,000 unit QDAY PO 01/11/18 09:00 02/10/18 08:59 01/15/18 07:58 1,000 UNIT Losartan Potassium (Cozaar 50 Mg Tab (Or Equiv)) 50 mg QAM PO 01/11/18 09:00 01/13/18 08:26 DC Terbinafine HCl (LamISIL 1% CREAM 30 GM TUBE (OR EQUIV)) APPLY BID NEEDED FOR ITCHING BID PRN TP ITCHING 01/10/18 19:25 02/09/18 19:24 01/11/18 20:24 1 GM Acetaminophen (Tylenol(*)325 Mg Tab (Or Equiv)) 650 mg Q4H PRN PO HEADACHE 01/10/18 19:25 02/09/18 19:24 01/14/18 21:34 650 MG Al Hydrox/Mg Hydrox/Simethicone (Maalox(*) 30 ml Udcup (Or Equiv)) 30 ml Q4H PRN PO DYSPEPSIA 01/10/18 19:25 02/09/18 19:24 Multivitamins (Thera-M Enhanced Tab (Or Equiv)) 1 each QDAY PO 01/11/18 09:00 02/10/18 08:59 01/15/18 07:58 1 EACH Diphenhydramine HCl (Benadryl(*) 25 Mg Cap (Or Equiv)) 50 mg QHS PO 01/11/18 21:00 02/10/18 20:59 01/14/18 20:43 50 MG Olanzapine (zyPREXA (OR EQUIV)) 10 mg QHS PO 01/11/18 21:00 02/10/18 20:59 01/14/18 20:43 10 MG Venlafaxine HCl (Effexor-Xr 75 Mg Capcr (Or Equiv)) 150 mg QAM PO 01/11/18 09:00 02/10/18 08:59 01/15/18 07:58 150 MG Venlafaxine HCl (Effexor-Xr 75 Mg Capcr (Or Equiv)) 75 mg NOON PO 01/12/18 12:00 02/11/18 11:59 01/14/18 11:52 75 MG Nicotine Polacrilex ([place]orette 2 Mg Gum (Or Equiv)) 2 mg Q1-2H PRN PO NICOTINE REPLACEMENT 01/12/18 10:00 02/11/18 09:59 01/15/18 07:58 2 MG Docusate Sodium (Colace(*) 100 Mg Cap (Or Equiv)) 100 mg BID PO 01/13/18 09:00 02/12/18 08:59 01/15/18 07:58 100 MG Hypromellose (Natural Balance Tears 0.4% 15 ml Btl) 1 ml PRN PRN OD DRY EYES 01/13/18 10:30 02/12/18 10:29 01/14/18 22:24 1 ML Sodium Chloride ([place] Nasal [place] 0.65%(*) 44 ml (Or Equiv)) SPRAY PRN PRN NA CONGESTION 01/14/18 21:20 02/13/18 21:19 Allergies Coded Allergies Penicillins (Verified Allergy, Intermediate, RASH, 12/10/17) erythromycin base (Verified Adverse Reaction, Mild, NAUSEA/VOMITING, 12/10/17) ED Medications Hypromellose (Natural Balance Tears 0.4% 15 ml Btl) 1 ml PRN PRN Last administered on 01/14/18at 22:24; Admin Dose 1 ML; Start 01/13/18 at 10:30; Stop 02/12/18 at 10:29 [facility] Assessment and Plan [id number] Encounter Date: Jan 15, 2018 [id number] Encounter Time: 09:16 [facility] Plan: Necessary Precautions, Individual/Group Therapy, Admin/Titrate Meds, Educate Patient Tobacco Medications: Not Appropriate Condition Multpiple Antipsychotics Used: No Problems: (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 Last Edited By: Richard Rosenthal on Jan 12, 2018 10:10 Status: Chronic (2) Sinusitis Status: Acute Condition Continue current medications Encourage CPAP Right wrist and shoulder imaging negative, rates right shoulder pain 3/10 Discharge when cpap set up at home, arranging for set up via EMMA Ring NP Jan 15, 2018 09:21
[2018-01-15 09:38] VITALS: BP 128/58
[2018-01-15] MEDS: HYPROMELLOSE 0.4% LUB 15ML BTL OD PRN (11:15)
[2018-01-15] MEDS: ACETAMINOPHEN 325 MG TAB PO PRN ×3 (11:16→20:26)
[2018-01-15 15:45] VITALS: BP 126/80
[2018-01-15] MEDS: LEVOFLOXACIN 500 MG TAB PO SCH (16:29)
[2018-01-15] MEDS ORDERED: OLANZapine ZYDIS ODT 5MG TABDP PO ONE (17:55)
[2018-01-15] MEDS: diphenhydrAMINE 25 MG CAP PO SCH (20:26)
[2018-01-15] MEDS: OLANZapine 5 MG TAB PO SCH (20:26)
[2018-01-16 06:06] VITALS: BP 138/94
[2018-01-16] MEDS: MULTIVITAMINS PO SCH (07:37)
[2018-01-16] MEDS: GABAPENTIN 300 MG CAP PO SCH ×2 (07:37→21:02)
[2018-01-16] MEDS: CHOLECALCIFEROL 1000 UNIT TAB PO SCH (07:37)
[2018-01-16] MEDS: VENLAFAXINE XR 75 MG CAPCR PO SCH ×2 (07:37→11:36)
[2018-01-16] MEDS: DOCUSATE SODIUM 100 MG CAP PO SCH ×2 (07:37→21:02)
[2018-01-16 09:36] VITALS: BP 145/84
--- NOTE | 2018-01-16 10:11 | BHS Progress Note ---
BHS - Subjective Progress Notes Subjective "I've been told that my CPAP is not safe to wear. I need to get it checked before I use it. It needs new mouthpiece and mask. I do know I need a cpap. Until I know it's 100% right, I can't wear it. I don't want to be walking around the streets again." States, "I've felt the best I have in a long time." Insisting he iis ready for discharge to home although refusing home cpap reporting unclean States Olanzapine was dc'd as he had eps secondary to antipsychotic use, was off for two years Ongoing paranoia, increased anxiety, "I don't feel safe being here anymore. I need to go home. There's nothing wrong with me." Hearing scheduled for tomorrow 01/17/18 Current Medications Medications (Trade) Dose Ordered Sig/Reema Route PRN Reason Start Time Stop Time Status Last Admin Dose Admin Sodium Chloride 1,000 ml @ 100 mls/hr Q10H ONCE IV 01/10/18 15:56 01/11/18 01:55 DC 01/10/18 16:12 Lorazepam (Ativan(*) 2 Mg/ ml Vial (Or Equiv)) 1 mg ONCE ONCE IVP 01/10/18 16:00 01/10/18 16:01 DC 01/10/18 16:12 Levofloxacin (Levaquin (*) 500 Mg Tab (Or Equiv)) 500 mg ONCE ONCE PO 01/10/18 17:05 01/10/18 17:06 DC 01/10/18 17:04 Diphenhydramine HCl (Benadryl(*) 25 Mg Cap (Or Equiv)) 50 mg ONCE ONCE PO 01/10/18 18:10 01/10/18 18:14 DC Olanzapine (zyPREXA (OR EQUIV)) 10 mg ONCE ONCE PO 01/10/18 18:10 01/10/18 18:14 DC Olanzapine (zyPREXA (OR EQUIV)) 10 mg STK-MED ONCE .ROUTE 01/10/18 18:09 01/10/18 18:15 DC 01/10/18 18:09 Diphenhydramine HCl (Benadryl(*) 25 Mg Cap (Or Equiv)) 50 mg STK-MED ONCE .ROUTE 01/10/18 18:09 01/10/18 18:15 DC 01/10/18 18:09 Levofloxacin (Levaquin (*) 500 Mg Tab (Or Equiv)) 500 mg QDAY@1700 PO 01/11/18 17:00 01/16/18 16:59 01/15/18 16:29 Olanzapine (zyPREXA (OR EQUIV)) 5 mg QHS PO 01/10/18 21:00 01/11/18 08:05 DC Diphenhydramine HCl (Benadryl(*) 25 Mg Cap (Or Equiv)) 25 mg QHS PO 01/10/18 21:00 01/11/18 08:05 DC Gabapentin (Neurontin(*) 300 Mg Cap (Or Equiv)) 600 mg QHS PO 01/10/18 21:00 02/09/18 20:59 01/15/18 20:26 Gabapentin (Neurontin(*) 300 Mg Cap (Or Equiv)) 300 mg QAM PO 01/11/18 09:00 02/10/18 08:59 01/16/18 07:37 Venlafaxine HCl (Effexor-Xr 75 Mg Capcr (Or Equiv)) 150 mg 0900,1200 PO 01/11/18 09:00 01/11/18 09:00 DC Cholecalciferol (Vitamin D3 1000 Unit Tab) 1,000 unit QDAY PO 01/11/18 09:00 02/10/18 08:59 01/16/18 07:37 Losartan Potassium (Cozaar 50 Mg Tab (Or Equiv)) 50 mg QAM PO 01/11/18 09:00 01/13/18 08:26 DC Terbinafine HCl (LamISIL 1% CREAM 30 GM TUBE (OR EQUIV)) APPLY BID NEEDED FOR ITCHING BID PRN TP ITCHING 01/10/18 19:25 02/09/18 19:24 01/11/18 20:24 Acetaminophen (Tylenol(*)325 Mg Tab (Or Equiv)) 650 mg Q4H PRN PO HEADACHE 01/10/18 19:25 02/09/18 19:24 01/15/18 20:26 Al Hydrox/Mg Hydrox/Simethicone (Maalox(*) 30 ml Udcup (Or Equiv)) 30 ml Q4H PRN PO DYSPEPSIA 01/10/18 19:25 02/09/18 19:24 Multivitamins (Thera-M Enhanced Tab (Or Equiv)) 1 each QDAY PO 01/11/18 09:00 02/10/18 08:59 01/16/18 07:37 Diphenhydramine HCl (Benadryl(*) 25 Mg Cap (Or Equiv)) 50 mg QHS PO 01/11/18 21:00 02/10/18 20:59 01/15/18 20:26 Olanzapine (zyPREXA (OR EQUIV)) 10 mg QHS PO 01/11/18 21:00 02/10/18 20:59 01/15/18 20:26 Venlafaxine HCl (Effexor-Xr 75 Mg Capcr (Or Equiv)) 150 mg QAM PO 01/11/18 09:00 02/10/18 08:59 01/16/18 07:37 Venlafaxine HCl (Effexor-Xr 75 Mg Capcr (Or Equiv)) 75 mg NOON PO 01/12/18 12:00 02/11/18 11:59 01/15/18 11:15 Nicotine Polacrilex (Nicorette 2 Mg Gum (Or Equiv)) 2 mg Q1-2H PRN PO NICOTINE REPLACEMENT 01/12/18 10:00 02/11/18 09:59 01/15/18 22:58 Docusate Sodium (Colace(*) 100 Mg Cap (Or Equiv)) 100 mg BID PO 01/13/18 09:00 02/12/18 08:59 01/16/18 07:37 Hypromellose (Natural Balance Tears 0.4% 15 ml Btl) 1 ml PRN PRN OD DRY EYES 01/13/18 10:30 02/12/18 10:29 01/15/18 11:15 Sodium Chloride ([place] Nasal [place] 0.65%(*) 44 ml (Or Equiv)) SPRAY PRN PRN NA CONGESTION 01/14/18 21:20 02/13/18 21:19 Olanzapine (zyPREXA ZYDIS ODT(*) 5 MG TABDP (OR EQUIV)) 5 mg ONCE ONCE PO 01/15/18 17:55 01/15/18 17:56 DC 01/15/18 17:57 Suicidal Ideation: None Homicidal Ideation: None BHS - Objective Physical Exam Vital Signs Allergies Coded Allergies Penicillins (Verified Allergy, Intermediate, RASH, 12/10/17) erythromycin base (Verified Adverse Reaction, Mild, NAUSEA/VOMITING, 12/10/17) Deferred Vital Signs Date Time Temp Pulse Resp B/P (MAP) Pulse Ox O2 Delivery O2 Flow Rate FiO2 01/16/18 09:36 99.1 86 145/84 (104) 97 Room Air 01/15/18 23:07 45.0 01/15/18 15:45 16 Muscle Strength and Tone: WNL Gait and Station: Steady S Medications Reviewed: Side Effects, Benefits of Medication, Risks Allergies Reviewed: Yes Mental Status Exam General Appearance: Casual, Well Groomed, Good Eye Contact, Cooperative, Polite , Good Interaction, No Unkept, No Tearful, No Psychomotor Agitation, No Psychomotor Retardation, No Bizarre Mannerisms, No Tics Speech: Clear, Spontaneous, Normal Rate, Normal Rhythm, Normal Volume, Normal Tone, No Slurred, No Garbled, No Rambling, No Inappropriate Mood: No Dysthmic/Depressed (improving), Euthymic, Other (slightly agitated) Affect: Full and Appropriate, No Calm, Neutral, No Withdrawn, No Tearful, Anxious, Agitated Thought Process: Organized, Logical, Goal Directed, No Loose Associations, No Flight of Ideas Thought Content: No Suicidal Ideation, No Homicidal Ideation, Delusions ( paranoid type, resolving.), No Visual Hallucinations, Ideas of Reference ( resolving ), No Obsessions, No Compulsions Sensorium: Clear Cognition: Alert & Oriented-Person, Alert & Oriented-Place, Alert & Oriented- Time, No Uawnd-Wsnstlym-Vszbnchhm Memory: Immediate, Recent, Remote Intelligence: Below Average (slightly) Insight Judgment: No Poor (improving daily), Fair Lab ED Medications Olanzapine (zyPREXA ZYDIS ODT(*) 5 MG TABDP (OR EQUIV)) 5 mg ONCE ONCE Last administered on 01/15/18at 17:57; Admin Dose 5 MG; Start 01/15/18 at 17:55; Stop 01/15/18 at 17:56; Status DC Microbiology Laboratory Tests 01/10/18 16:09 Laboratory Tests 01/10/18 16:09: White Blood Count 7.1, Red Blood Count 5.10, Hemoglobin 15.8, Hematocrit 45.4, Mean Corpuscular Volume 89.0, Mean Corpuscular Hemoglobin 30.9, Mean Corpuscular Hemoglobin Concent 34.7, Red Cell Distribution Width 14.0, Platelet Count 321, Mean Platelet Volume 7.4, Neutrophils (%) (Auto) 71.6, Lymphocytes (% ) (Auto) 16.0, Monocytes (%) (Auto) 7.4, Eosinophils (%) (Auto) 4.3, Basophils ( %) (Auto) 0.7, Nucleated RBC Relative Count (auto) 0.0, Neutrophils # (Auto) 5.1 , Lymphocytes # (Auto) 1.1, Monocytes # (Auto) 0.5, Eosinophils # (Auto) 0.3, Basophils # (Auto) 0.0, Nucleated RBC Absolute Count (auto) 0.00, Sodium Level 138, Potassium Level 4.2, Chloride Level 101, Carbon Dioxide Level 26, Blood Urea Nitrogen 10, Creatinine 0.90, Glomerular Filtration Rate Calc > 60.0, Random Glucose 106, Calcium Level 9.0, Magnesium Level 1.9, Total Bilirubin 0.6 , Aspartate Amino Transf (AST/SGOT) 49, Alanine Aminotransferase (ALT/SGPT) 51, Alkaline Phosphatase 66, Total Protein 7.3, Albumin 4.2, Thyroid Stimulating Hormone (TSH) 1.08, Salicylates Level < 10, Salicylate Last Dose Date unk, Acetaminophen Level < 10, Serum Alcohol < 10 01/10/18 16:20: Urine Color Yellow, Urine Clarity Clear, Urine pH 6.0, Urine Specific [place] 1.010, Urine Protein Negative, Urine Glucose (UA) Negative, Urine Ketones Negative, Urine Blood Negative, Urine Nitrite Negative, Urine Bilirubin Negative , Urine Urobilinogen Negative, Urine Leukocyte Esterase Negative, Urine RBC <1, Urine WBC 1, Urine Squamous Epithelial Cells None, Urine Bacteria Negative, Urine Mucus None, Urine Opiates Screen Negative, Urine Barbiturates Screen Negative, Ur Tricyclic Antidepressants Screen Negative, Urine Phencyclidine Screen Negative, Urine Amphetamines Screen Negative, Urine Benzodiazepines Screen Negative, Urine Cocaine Screen Negative, Urine Cannabinoids Screen Negative Imaging ED Medications Olanzapine (zyPREXA ZYDIS ODT(*) 5 MG TABDP (OR EQUIV)) 5 mg ONCE ONCE Last administered on 01/15/18at 17:57; Admin Dose 5 MG; Start 01/15/18 at 17:55; Stop 01/15/18 at 17:56; Status DC [facility] Assessment and Plan [id number] Encounter Date: Jan 16, 2018 Ieuj-we-Skry Encounter Time: 10:03 [facility] Plan: Necessary Precautions, Individual/Group Therapy, Admin/Titrate Meds, Educate Patient Tobacco Medications: Not Appropriate Condition Multpiple Antipsychotics Used: No Problems: (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 Last Edited By: Richard Rosenthal on Jan 12, 2018 10:10 Status: Chronic (2) Obstructive sleep apnea Status: Chronic (3) Sinusitis Status: Acute Condition Refused home cpap machine last pm Fixated on home cpap machine and unclean mask and tubing Compliant w/meds, increased paranoia, anxiety Will encourage use of home cpap tonight on unit EMMA GIANG NP Jan 16, 2018 10:11
[2018-01-16] MEDS: HYPROMELLOSE 0.4% LUB 15ML BTL OD PRN (11:39)
[2018-01-16] MEDS: ACETAMINOPHEN 325 MG TAB PO PRN ×2 (11:59→16:47)
[2018-01-16 14:47] VITALS: BP 138/80
[2018-01-16] MEDS: OLANZapine 5 MG TAB PO SCH (21:02)
[2018-01-16] MEDS: diphenhydrAMINE 25 MG CAP PO SCH (21:02)
[2018-01-17 04:07] VITALS: BP 139/88
[2018-01-17] MEDS: DOCUSATE SODIUM 100 MG CAP PO SCH ×2 (07:49→21:04)
[2018-01-17] MEDS: CHOLECALCIFEROL 1000 UNIT TAB PO SCH (07:49)
[2018-01-17] MEDS: VENLAFAXINE XR 75 MG CAPCR PO SCH ×2 (07:49→11:58)
[2018-01-17] MEDS: MULTIVITAMINS PO SCH (07:49)
[2018-01-17] MEDS: GABAPENTIN 300 MG CAP PO SCH ×2 (07:49→21:04)
--- NOTE | 2018-01-17 09:42 | BHS Progress Note ---
BHS - Subjective Progress Notes Subjective Patient states he is doing well this AM, and interacting well with his sons present at treatment team meeting, levaquin has now been discontinued. Sinusitis has resolved. Some evidence of remaining psychosis as of the weekend , but possibly levaquin had a part in symptom exacerbation. Patient agrees to wear c-pap at home. Patient denies any symptoms of concern. Sons will evaluate for return to baseline behavior tonight, and will tentatively plan for possible discharge tomorrow. No other concerns. Suicidal Ideation: None Homicidal Ideation: None S - Objective Physical Exam Vital Signs Vital Signs Date Time Temp Pulse Resp B/P (MAP) Pulse Ox O2 Delivery O2 Flow Rate FiO2 01/17/18 04:07 98.5 66 139/88 (105) 94 Room Air 01/16/18 22:00 45.0 01/16/18 14:47 18 Hematology Test 01/10/18 16:09 01/10/18 16:20 Red Blood Count 5.10 M/uL (4.00-5.60) Mean Corpuscular Volume 89.0 fL (80.0-96.0) Mean Corpuscular Hemoglobin 30.9 pg (26.0-33.0) Mean Corpuscular Hemoglobin Concent 34.7 g/dL (32.0-36.0) Red Cell Distribution Width 14.0 % (11.5-14.5) Mean Platelet Volume 7.4 fL (7.2-11.1) Neutrophils (%) (Auto) 71.6 % (39.4-72.5) Lymphocytes (%) (Auto) 16.0 % (17.6-49.6) Monocytes (%) (Auto) 7.4 % (4.1-12.4) Eosinophils (%) (Auto) 4.3 % (0.4-6.7) Basophils (%) (Auto) 0.7 % (0.3-1.4) Nucleated RBC Relative Count (auto) 0.0 /100WBC Neutrophils # (Auto) 5.1 K/uL (2.0-7.4) Lymphocytes # (Auto) 1.1 K/uL (1.3-3.6) Monocytes # (Auto) 0.5 K/uL (0.3-1.0) Eosinophils # (Auto) 0.3 K/uL (0.0-0.5) Basophils # (Auto) 0.0 K/uL (0.0-0.1) Nucleated RBC Absolute Count (auto) 0.00 K/uL Sodium Level 138 mmol/L (137-145) Potassium Level 4.2 mmol/L (3.5-5.0) Chloride Level 101 mmol/L (98-107) Carbon Dioxide Level 26 mmol/L (22-30) Blood Urea Nitrogen 10 mg/dl (9-21) Creatinine 0.90 mg/dl (0.66-1.25) Glomerular Filtration Rate Calc > 60.0 Random Glucose 106 mg/dl (75-110) Calcium Level 9.0 mg/dl (8.4-10.2) Magnesium Level 1.9 mg/dl (1.7-2.2) Total Bilirubin 0.6 mg/dl (0.2-1.3) Aspartate Amino Transf (AST/SGOT) 49 U/L (0-35) Alanine Aminotransferase (ALT/SGPT) 51 U/L (0-56) Alkaline Phosphatase 66 U/L (0-126) Total Protein 7.3 g/dl (6.3-8.2) Albumin 4.2 g/dl (3.5-5.0) Thyroid Stimulating Hormone (TSH) 1.08 uIU/ml (0.46-4.68) Salicylates Level < 10 mg/L Salicylate Last Dose Date unk Acetaminophen Level < 10 ug/ml Serum Alcohol < 10 mg/dl Urine Color Yellow Urine Clarity Clear Urine pH 6.0 pH (4.8-9.5) Urine Specific [place] 1.010 Urine Protein Negative mg/dL (NEGATIVE) Urine Glucose (UA) Negative mg/dL (NEGATIVE) Urine Ketones Negative mg/dL (NEGATIVE) Urine Blood Negative (NEGATIVE) Urine Nitrite Negative (NEGATIVE) Urine Bilirubin Negative (NEGATIVE) Urine Urobilinogen Negative mg/dL (0.2-1.9) Urine Leukocyte Esterase Negative (NEGATIVE) Urine RBC <1 /HPF (0-2/HPF) Urine WBC 1 /HPF (0-5/HPF) Urine Squamous Epithelial Cells None /LPF (</=FEW) Urine Bacteria Negative /HPF (NONE-FEW) Urine Mucus None /HPF (NONE-FEW) Urine Opiates Screen Negative Urine Barbiturates Screen Negative Ur Tricyclic Antidepressants Screen Negative Urine Phencyclidine Screen Negative Urine Amphetamines Screen Negative Urine Benzodiazepines Screen Negative Urine Cocaine Screen Negative Urine Cannabinoids Screen Negative Chemistry Test 01/10/18 16:09 01/10/18 16:20 White Blood Count 7.1 k/uL (4.5-11.0) Red Blood Count 5.10 M/uL (4.00-5.60) Hemoglobin 15.8 g/dL (14.0-18.0) Hematocrit 45.4 % (42.0-52.0) Mean Corpuscular Volume 89.0 fL (80.0-96.0) Mean Corpuscular Hemoglobin 30.9 pg (26.0-33.0) Mean Corpuscular Hemoglobin Concent 34.7 g/dL (32.0-36.0) Red Cell Distribution Width 14.0 % (11.5-14.5) Platelet Count 321 K/uL (150-450) Mean Platelet Volume 7.4 fL (7.2-11.1) Neutrophils (%) (Auto) 71.6 % (39.4-72.5) Lymphocytes (%) (Auto) 16.0 % (17.6-49.6) Monocytes (%) (Auto) 7.4 % (4.1-12.4) Eosinophils (%) (Auto) 4.3 % (0.4-6.7) Basophils (%) (Auto) 0.7 % (0.3-1.4) Nucleated RBC Relative Count (auto) 0.0 /100WBC Neutrophils # (Auto) 5.1 K/uL (2.0-7.4) Lymphocytes # (Auto) 1.1 K/uL (1.3-3.6) Monocytes # (Auto) 0.5 K/uL (0.3-1.0) Eosinophils # (Auto) 0.3 K/uL (0.0-0.5) Basophils # (Auto) 0.0 K/uL (0.0-0.1) Nucleated RBC Absolute Count (auto) 0.00 K/uL Glomerular Filtration Rate Calc > 60.0 Calcium Level 9.0 mg/dl (8.4-10.2) Magnesium Level 1.9 mg/dl (1.7-2.2) Total Bilirubin 0.6 mg/dl (0.2-1.3) Aspartate Amino Transf (AST/SGOT) 49 U/L (0-35) Alanine Aminotransferase (ALT/SGPT) 51 U/L (0-56) Alkaline Phosphatase 66 U/L (0-126) Total Protein 7.3 g/dl (6.3-8.2) Albumin 4.2 g/dl (3.5-5.0) Thyroid Stimulating Hormone (TSH) 1.08 uIU/ml (0.46-4.68) Salicylates Level < 10 mg/L Salicylate Last Dose Date unk Acetaminophen Level < 10 ug/ml Serum Alcohol < 10 mg/dl Urine Color Yellow Urine Clarity Clear Urine pH 6.0 pH (4.8-9.5) Urine Specific [place] 1.010 Urine Protein Negative mg/dL (NEGATIVE) Urine Glucose (UA) Negative mg/dL (NEGATIVE) Urine Ketones Negative mg/dL (NEGATIVE) Urine Blood Negative (NEGATIVE) Urine Nitrite Negative (NEGATIVE) Urine Bilirubin Negative (NEGATIVE) Urine Urobilinogen Negative mg/dL (0.2-1.9) Urine Leukocyte Esterase Negative (NEGATIVE) Urine RBC <1 /HPF (0-2/HPF) Urine WBC 1 /HPF (0-5/HPF) Urine Squamous Epithelial Cells None /LPF (</=FEW) Urine Bacteria Negative /HPF (NONE-FEW) Urine Mucus None /HPF (NONE-FEW) Urine Opiates Screen Negative Urine Barbiturates Screen Negative Ur Tricyclic Antidepressants Screen Negative Urine Phencyclidine Screen Negative Urine Amphetamines Screen Negative Urine Benzodiazepines Screen Negative Urine Cocaine Screen Negative Urine Cannabinoids Screen Negative Toxicology Test 01/10/18 16:09 01/10/18 16:20 Salicylates Level < 10 mg/L Salicylate Last Dose Date unk Acetaminophen Level < 10 ug/ml Serum Alcohol < 10 mg/dl Urine Opiates Screen Negative Urine Barbiturates Screen Negative Ur Tricyclic Antidepressants Screen Negative Urine Phencyclidine Screen Negative Urine Amphetamines Screen Negative Urine Benzodiazepines Screen Negative Urine Cocaine Screen Negative Urine Cannabinoids Screen Negative Urinalysis Test 01/10/18 16:20 Urine Color Yellow Urine Clarity Clear Urine pH 6.0 pH (4.8-9.5) Urine Specific [place] 1.010 Urine Protein Negative mg/dL (NEGATIVE) Urine Glucose (UA) Negative mg/dL (NEGATIVE) Urine Ketones Negative mg/dL (NEGATIVE) Urine Blood Negative (NEGATIVE) Urine Nitrite Negative (NEGATIVE) Urine Bilirubin Negative (NEGATIVE) Urine Urobilinogen Negative mg/dL (0.2-1.9) Urine Leukocyte Esterase Negative (NEGATIVE) Urine RBC <1 /HPF (0-2/HPF) Urine WBC 1 /HPF (0-5/HPF) Urine Squamous Epithelial Cells None /LPF (</=FEW) Urine Bacteria Negative /HPF (NONE-FEW) Urine Mucus None /HPF (NONE-FEW) Muscle Strength and Tone: WNL Gait and Station: Steady [facility] Medications Reviewed: Side Effects, Benefits of Medication, Risks Allergies Reviewed: Yes Mental Status Exam General Appearance: Casual, Well Groomed, Good Eye Contact, Cooperative, Polite , Good Interaction, No Unkept, No Tearful, No Psychomotor Agitation, No Psychomotor Retardation, No Bizarre Mannerisms, No Tics Speech: Clear, Spontaneous, Normal Rate, Normal Rhythm, Normal Volume, Normal Tone, No Slurred, No Garbled, No Rambling, No Inappropriate Mood: No Dysthmic/Depressed (improving), Euthymic, Other (slightly agitated) Affect: Full and Appropriate, No Calm, Neutral, No Withdrawn, No Tearful, Anxious, Agitated Thought Process: Organized, Logical, Goal Directed, No Loose Associations, No Flight of Ideas Thought Content: No Suicidal Ideation, No Homicidal Ideation, Delusions ( paranoid type, resolving.), No Visual Hallucinations, Ideas of Reference ( resolving ), No Obsessions, No Compulsions Sensorium: Clear Cognition: Alert & Oriented-Person, Alert & Oriented-Place, Alert & Oriented- Time, No Fkzfh-Wisdzbne-Bidyzbjhw Memory: Immediate, Recent, Remote Intelligence: Below Average (slightly) Insight Judgment: Fair (much improved today) [facility] Assessment and Plan [id number] Encounter Date: Jan 17, 2018 Vepz-ho-Nnim Encounter Time: 09:00 [facility] Plan: Necessary Precautions, Individual/Group Therapy, Admin/Titrate Meds, Educate Patient Tobacco Medications: Not Appropriate Condition Multpiple Antipsychotics Used: No Problems: (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 Last Edited By: Anay Rhoades on Jan 12, 2018 10:10 Status: Chronic Condition 1. continue treatment. 2. encourage compliance with c-pap upon discharge. ANAY RHOADES MD Jan 17, 2018 09:42
[2018-01-17] MEDS: NICOTINE POLACRILEX 2 MG GUM PO PRN (09:45)
[2018-01-17 09:50] VITALS: BP 124/79
[2018-01-17] MEDS: HYPROMELLOSE 0.4% LUB 15ML BTL OD PRN (10:08)
[2018-01-17] MEDS: diphenhydrAMINE 25 MG CAP PO SCH (21:04)
[2018-01-17] MEDS: OLANZapine 5 MG TAB PO SCH (21:04)
[2018-01-18 05:35] VITALS: BP 128/85
[2018-01-18] MEDS: DOCUSATE SODIUM 100 MG CAP PO SCH (08:13)
[2018-01-18] MEDS: VENLAFAXINE XR 75 MG CAPCR PO SCH (08:13)
[2018-01-18] MEDS: MULTIVITAMINS PO SCH (08:13)
[2018-01-18] MEDS: GABAPENTIN 300 MG CAP PO SCH (08:13)
[2018-01-18] MEDS: CHOLECALCIFEROL 1000 UNIT TAB PO SCH (08:14)
[2018-01-18] MEDS ORDERED: DIPH-740 PO (08:58)
[2018-01-18] MEDS ORDERED: DOCU-416 PO (08:58)
[2018-01-18] MEDS ORDERED: VENL75CA58 PO (09:00)
[2018-01-18] MEDS ORDERED: TERB30CR11 TOP (09:02)
[2018-01-18] MEDS ORDERED: DEXT15DR2 OP (09:04)
[2018-01-18] MEDS ORDERED: NICO-219 BC (09:05)
[2018-01-18] MEDS ORDERED: SODI104S3 (09:06)
[2018-01-18] MEDS ORDERED: OLAN10TA21 PO (09:07)
--- NOTE | 2018-01-19 21:02 | DISCHARGE SUMMARY ---
DATE OF ADMISSION: January 10, 2018 DATE OF DISCHARGE: January 18, 2018 Patient was seen on the a.m. of 18 January 2018 at approximately 0900 hours for note concerning this dictation. FINAL DIAGNOSES 1. Psychosis, unspecified, rule out psychosis secondary to general medical condition. 2. Sleep apnea. 3. Sinusitis. 4. Rule out psychosis secondary to substance use. Patient's sinusitis treated with Levaquin. 5. Rule out schizophrenia. 6. History of pituitary cyst as well. 7. Patient noted to have supportive family members. REASON FOR ADMISSION This is a very pleasant, 57-year-old male with supportive relationship with his two sons who live here in the [facility]. Patient notably was admitted on January 05, 2018, under somewhat similar circumstances and discharged on January 08 after apparent resolution of symptoms on unit. However, patient quickly returned on January 10 to the hospital with a recurrence of psychotic concerns. Please see H and P and emergency room note for details. Patient was admitted, was calm and cooperative during the admission process. Patient was held under an emergency detainment. Patient was started on Zyprexa at 10 mg at bedtime with very positive and quick result. Patient noted to have sinusitis on head CT , treated with Levaquin. Use of Levaquin was completed while the patient was on the unit, and it is thereby not thought that Levaquin would not lead to any further exacerbation of concerns. Patient also not compliant with CPAP machine at home, but agreeing to use machine here on the unit while his family would get his home CPAP machine ready for discharge. Patient very cooperative on the unit. At times on the unit, patient had brief return of seemingly psychotic overvalued ideas. This was usually in the evening time; however, patient gradually continued to improve overall. I met with patient's sons on multiple occasions. Patient's sons indicated that patient had returned to baseline, and patient was discharged to home. PHYSICAL EXAMINATION Please see emergency room note. Notable for: GENERAL: A 57-year-old male, cooperative, in no acute medical distress. VITAL SIGNS: Vital signs at time of admission, temperature 99.4, pulse 75, respiratory rate 16, blood pressure 156/94, and pulse oximetry 95 on room air. At time of discharge from Behavioral Health Unit, temperature is 97.7, pulse 58 , respiratory rate 18, blood pressure 128/85, pulse oximetry 95 on room air. LABORATORY DATA CBC on January 10, 2018, was unremarkable. CMP notable only for a mild elevation of AST at 49. TSH 1.08, normal range. Urinalysis unremarkable. Toxicology screen negative with an undetectable serum alcohol level. MENTAL STATUS EXAMINATION AT TIME OF DISCHARGE GENERAL APPEARANCE, BEHAVIOR, AND ATTITUDE: This is a very polite, well-groomed , 57-year-old male, interacting well with this provider, treatment team staff, and his sons present at time of discharge. No psychomotor agitation or retardation. No bizarre mannerisms or tics. Patient making good eye contact. No periods of tearfulness. SPEECH: Within normal limits. Regular rate, rhythm, volume, and tone. MOOD: Good. AFFECT: Full and mood congruent. THOUGHT PROCESSES: Patient goal directed, patient wanting to discharge from the hospital and seemingly making an effort at plans once discharged. Patient having no loose associations or flight of ideas. THOUGHT CONTENT: Free of auditory or visual hallucinations, ideas of reference , thought broadcasting, delusions, obsessions, compulsions. Patient adamantly denying suicidal or homicidal ideation. SENSORIUM: Clear. COGNITION: Alert and oriented to person, place, time, and mostly to situation. MEMORY: Immediate, recent, and remote estimated intact. INTELLIGENCE: Overall average to slightly below based on interview. INSIGHT AND JUDGMENT: Considered grossly intact and appropriate for ongoing outpatient management and close supervision with his sons. RESULTS OF TESTING IMAGING: Due to patient's overvalued ideas concerning fractures, patient was eventually given x-ray of wrist and humerus which were unremarkable during this admission. Cervical spine CT was unremarkable as well. CT of the head was unremarkable. LABORATORY DATA: See above. CONSULTATIONS None. TREATMENT Patient received medications, participated in individual and group therapy. HOSPITAL COURSE Patient remained calm, polite, cooperative throughout stay on the hospital floor. Patient interacting well and taking an active role in his treatment. Patient seemed to respond to 10 mg Zyprexa, which patient has been on in the past, with good results. CONDITION OF PATIENT ON DISCHARGE Stable, considered minimal risk to himself or others and appropriate for ongoing outpatient management. DISPOSITION Patient discharged to home in care of his sons. He would follow up with outpatient mental health appointments as scheduled. He was given the crisis line should symptoms return. Patient would follow up with Neurology and Endocrinology as necessary for pituitary cyst and potential underlying movement disorder. Patient agreed to use CPAP machine at home for diagnosed sleep apnea , and patient would continue the following medications. DISCHARGE MEDICATIONS 1. Benadryl 50 mg at bedtime. 2. Colace 100 mg b.i.d. 3. Effexor XR 150 mg q.a.m. and Effexor XR 75 mg at noon. 4. Neurontin 600 mg at bedtime and Neurontin 300 mg every morning. 5. Multivitamin with minerals daily. 6. Vitamin D3 1000 International Units daily. 7. Patient could continue Lamisil as necessary, apply to feet. 8. Could continue Natural Balance Tears. 9. Encouraged to use replacement nicotine over the counter in an effort to quit chewing tobacco. 10. Patient could use Joaquin Nasal [place] over the counter as well. 11. Continue on Zyprexa 10 mg at bedtime. 12. Patient would stop anti-hypertensive and potassium, as vital signs remained good on the unit. 13. Albuterol rescue inhaler p.r.n. as needed sparingly. Risks, benefits, and alternatives of above discharge plan were discussed. Informed consent was given to proceed with above discharge plan by this patient and patient's family members present at time of discharge. BELEN
== END 2018-01-18 10:14 | disposition home or self-care (01) | DRG 884 ==
LOC: ER 15:45 → BHS 17:22
PROVIDERS: ADMIT Psychiatry & Neurology Psychiatry; ATTEND Psychiatry & Neurology Psychiatry
PROC: 5A09357 Assistance with Respiratory Ventilation, Less than 24 Consecutive Hours, Continuous Positive Airway Pressure (ICD-10-PCS; principal; 2018-01-10)
DX: F06.8 Other specified mental disorders due to known physiological condition (principal); G47.33 Obstructive sleep apnea (adult) (pediatric); K59.03 Drug induced constipation; T43.595A Adverse effect of other antipsychotics and neuroleptics, initial encounter; T37.8X5A Adverse effect of other specified systemic anti-infectives and antiparasitics, initial encounter; J32.9 Chronic sinusitis, unspecified; J45.909 Unspecified asthma, uncomplicated; F20.9 Schizophrenia, unspecified; Y92.230 Patient room in hospital as the place of occurrence of the external cause; Z88.0 Allergy status to penicillin; Z88.2 Allergy status to sulfonamides; Z87.891 Personal history of nicotine dependence; Z98.1 Arthrodesis status; Z62.810 Personal history of physical and sexual abuse in childhood
CPT/HCPCS: 70450; 72125; 80305; 80320; 80329; 81001; 82040; 82247; 82310; 82374; 82435; 82565; 82947; 83735; 84075; 84132; 84155; 84295; 84443; 84450; 84460; 84520; 85025; 93005; 94660; 96361; 96374; 99284; J2060; J7030; Q0163

== ENCOUNTER → 2018-01-10 | Outpatient (CLI) | payer SELFPAY ==
[~2018-01-10] MED LIST changes: +CHOL200074 PO; +DEXT15DR2 OP; +DIPH-740 PO; +DOCU-416 PO; +LOSA50TA68 PO; +MULT-7; +NICO-219 BC; +OLAN10TA21 PO; +SODI104S3; +TERB15CR TP; +TERB30CR11 TOP; +VENL75CA58 PO
== END ==
LOC: AMB 15:20
PROVIDERS: ATTEND Nurse Practitioner
DX: R41.82 Altered mental status, unspecified (principal)
CPT/HCPCS: A0425; A0429

== ENCOUNTER → 2018-02-03 | Outpatient (REF) ==
[~2018-02-03] MED LIST changes: +DEXT15DR2 OP; +DIPH-740 PO; +DOCU-416 PO; +NICO-219 BC; +OLAN10TA21 PO; +SODI104S3; +TERB30CR11 TOP; +VENL75CA58 PO
--- NOTE | 2018-02-03 15:53 | RADIOLOGY IMAGING REPORT ---
FACILITY: [facility] PATIENT NAME: Jonathon Quiroz : 1960 MR: [id number] V: [id number] EXAM DATE: ORDERING PHYSICIAN: TOMAS CRAWFORD TECHNOLOGIST: Location: [facility] [place] Patient: Jonathon Quiroz : 1960 Visit/Account:[id number] Date of Sevice: 02/03/2018 EXAMINATION: Lumbar spine, 4 views including obliques 02/03/2018 11:17 AM HISTORY: Lower back pain. Back surgery 4-5 years ago. COMPARISON: MR 02/22/2013 from [facility] FINDINGS: 5 nonrib-bearing lumbar vertebral levels. Patient is status post multilevel laminectomy a nd anterior and posterior fusion from L2 through L5, extension from that shown on the most recent MR. Metallic fixation is intact. Diffuse levels of malalignment. Severe disc space loss at L5-S1 has shown some progression since the MR. There also is now severe disc height loss and vacuum disc at L1 -2 with 7 mm retrolisthesis at this level. No acute bony injury. Soft tissue contours are unremarka ble apart from fecal material in the colon. IMPRESSION: 1. Status post multilevel laminectomy with L2-L5 fusion with good alignment. 2. Progressing L1-2 and L5-S1 spondylosis including 7 mm L1-2 retrolisthesis now present. Report Dictated By: Al Cedillo MD at 02/03/2018 3:43 PM Report E-Signed By: Al Cedillo MD at 02/03/2018 3:49 PM WSN:[id number]
== END ==
LOC: RAD 10:48
PROVIDERS: ATTEND Family Medicine
DX: M47.817 Spondylosis without myelopathy or radiculopathy, lumbosacral region (principal); Z98.1 Arthrodesis status
CPT/HCPCS: 72120

== ENCOUNTER 2018-03-23 09:11 | Emergency (ER) | payer SELFPAY ==
[~2018-03-23 09:11] MED LIST changes: -LOSA50TA72 PO; +LOSA50TA74 PO
== END 2018-03-23 09:22 | disposition left against medical advice (07) ==
LOC: ER 09:17
DX: Z02.89 Encounter for other administrative examinations (principal)
CPT/HCPCS: 36416; 82948

== ENCOUNTER 2018-05-06 17:51 | Emergency (ER) | payer SELFPAY ==
[~2018-05-06 17:51] MED LIST changes: -HYDR-4309 PO; +HYDR-653 PO
--- NOTE | 2018-05-06 18:09 | ER Report ---
History and Physical Time Seen By MD: 18:01 HPI/ROS CHIEF COMPLAINT: Acute psychosis HISTORY OF PRESENT ILLNESS: 57-year-old male brought in by police with acute confusion and agitation on an emergency retirement. Patient has a known history of schizophrenia. He's been admitted to our behavioral health service on 2 previous occasions in December of this year. Police were called today by his son and his roommate who he lives with. He is expressing paranoid ideas of persecution. He's been placing knives around the doorway to keep the evil s pirits out. He states that he is afraid of his son and his roommate. He feels unsafe. 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 All the time. Patient denies alcohol or illicit substance use. Police report that he was a missing person approximately 2 weeks ago. He was missing for 10 days. Patient states he traveled to [place] and [place], [place]. There were some concerns that patient is noncompliant with his CPAP for his sleep apnea and patient becomes accused from sleep deprivation. REVIEW OF SYSTEMS: Respiratory: No cough, no dyspnea. Cardiovascular: No chest pain, no palpitations. Gastrointestinal: No vomiting, no abdominal pain. Musculoskeletal: No back pain. Allergies: Coded Allergies: Penicillins (Verified Allergy, Intermediate, RASH, 12/10/17) erythromycin base (Verified Adverse Reaction, Mild, NAUSEA/VOMITING, 12/10/17) Home Meds Discontinued Reported Medications Olanzapine (ZYPREXA) 10 Mg Tablet, 10 MG PO QHS 01/18/18 Sodium Chloride ([place]) 0.65 % [place], 1 JAY NA PRN PRN for DRY NAIRS 01/18/18 Nicotine Polacrilex (NICORETTE) 2 Mg Gum, 2 MG BC Q1-2H PRN for NICOTINE REPLACEMENT, GUM 01/18/18 Dextran 70/Hypromellose (Nature's Tears Eye Drops) 0.1 %-0.3 % Drops, 1 ML OP PRN for DRY EYES 01/18/18 Terbinafine HCl (Lamisil At) 1 % Cream..g., 1 JAY TOP BID 01/18/18 Venlafaxine Hcl (EFFEXOR XR) 75 Mg Cap.er.24h, 75 MG PO NOON 01/18/18 Docusate Sodium (COLACE) 100 Mg Capsule, 100 MG PO BID, CAPSULE 01/18/18 Diphenhydramine Hcl (BENADRYL) 25 Mg Capsule, 50 MG PO QHS, CAPSULE 01/18/18 Gabapentin (GABAPENTIN) 300 Mg Capsule, 600 MG PO QHS, CAPSULE 01/11/18 Cholecalciferol (Vitamin D3) (VITAMIN D-3) 2,000 Unit Capsule, 1000 UNIT PO DAILY, CAPSULE 01/08/18 Multivits,Ca,Minerals/Iron/FA (Thera M Plus Tablet) 1 Each Tablet, 1 DAILY 01/08/18 Albuterol Sulfate (VENTOLIN HFA) 18 Gm Inh, 1-2 PUFF INH 3-4XD PRN for SHORTNESS OF BREATH, INH 12/10/17 Gabapentin (GABAPENTIN) 300 Mg Capsule, 300 MG PO QAM 03/30/13 Venlafaxine Hcl (Effexor Xr) 150 Mg Cap.sr.24h, 150 MG PO QAM, 0 Refills 11/04/09 Reviewed Nurses Notes: Yes Old Medical Records Reviewed: Yes Hx Smoking: No Smoking Status: Never Smoker Exposure to Second Hand Smoke?: No Hx Substance Use Disorder: No Hx Alcohol Use: Yes (would drink for muscle pain) Constitutional Vital Sign - Last 24 Hours 05/06/18 05/06/18 05/06/18 05/06/18 17:52 17:53 18:06 18:21 Temp 98.7 Pulse 83 84 73 Resp 18 B/P (MAP) 157/85 157/85 (109) Pulse Ox 93 94 97 O2 Delivery Room Air 05/06/18 05/06/18 05/06/18 05/06/18 18:33 18:36 19:06 19:33 Pulse 71 B/P (MAP) 155/100 (118) 147/84 (105) Pulse Ox 95 79 05/06/18 05/06/18 05/06/18 05/06/18 19:41 19:56 20:00 20:30 Pulse 59 67 B/P (MAP) 134/86 (102) 157/146 (150) Pulse Ox 96 95 Physical Exam Vital signs stable, mild elevation of blood pressure, afebrile, pulse ox normal General Appearance: The patient is alert, has no immediate need for airway protection and no current signs of toxicity. Palpation of the head and neck reveal no tenderness or trauma HEENT: Pupils equal and round no injection. TMs normal, oropharynx without dental trauma, mucous. Membranes are moist Respiratory: Chest is non tender, lungs are clear to auscultation. Cardiac: regular rate and rhythm Gastrointestinal: Abdomen is soft and non tender, no masses, bowel sounds normal. Musculoskeletal: Neck: Neck is supple and non tender. Extremities have full range of motion and are non tender. Skin: No rashes or lesions. DIFFERENTIAL DIAGNOSIS: After history and physical exam differential diagnosis was considered for depression including functional and major depression, situational depression, medication side effect, schizophrenia, acute psychosis, drugs and alcohol abuse. Medical Decision Making Data Points Result Diagram: 05/06/18181805/06/181818 Laboratory Hematology Test 05/06/18 15:45 05/06/18 18:19 Urine Color Yellow Urine Clarity Clear Urine pH 5.0 pH (4.8-9.5) Urine Specific [place] 1.019 Urine Protein Negative mg/dL (NEGATIVE) Urine Glucose (UA) Negative mg/dL (NEGATIVE) Urine Ketones 20 mg/dL (NEGATIVE) Urine Blood Negative (NEGATIVE) Urine Nitrite Negative (NEGATIVE) Urine Bilirubin Negative (NEGATIVE) Urine Urobilinogen 2.0 mg/dL (0.2-1.9) Urine Leukocyte Esterase Negative (NEGATIVE) Urine RBC None /HPF (0-2/HPF) Urine WBC 2 /HPF (0-5/HPF) Urine Squamous Epithelial Cells None /LPF (</=FEW) Urine Bacteria Negative /HPF (NONE-FEW) Urine Hyaline Casts Few /LPF (NONE-FEW) Urine Mucus Few /HPF (NONE-FEW) Urine Opiates Screen Negative Urine Barbiturates Screen Negative Ur Tricyclic Antidepressants Screen Negative Urine Phencyclidine Screen Negative Urine Amphetamines Screen Negative Urine Benzodiazepines Screen Negative Urine Cocaine Screen Negative Urine Cannabinoids Screen Negative Red Blood Count 5.05 M/uL (4.00-5.60) Mean Corpuscular Volume 89.5 fL (80.0-96.0) Mean Corpuscular Hemoglobin 30.8 pg (26.0-33.0) Mean Corpuscular Hemoglobin Concent 34.4 g/dL (32.0-36.0) Red Cell Distribution Width 14.1 % (11.5-14.5) Mean Platelet Volume 7.1 fL (7.2-11.1) Neutrophils (%) (Auto) 71.0 % (39.4-72.5) Lymphocytes (%) (Auto) 19.1 % (17.6-49.6) Monocytes (%) (Auto) 6.8 % (4.1-12.4) Eosinophils (%) (Auto) 1.9 % (0.4-6.7) Basophils (%) (Auto) 1.2 % (0.3-1.4) Nucleated RBC Relative Count (auto) 0.0 /100WBC Neutrophils # (Auto) 4.1 K/uL (2.0-7.4) Lymphocytes # (Auto) 1.1 K/uL (1.3-3.6) Monocytes # (Auto) 0.4 K/uL (0.3-1.0) Eosinophils # (Auto) 0.1 K/uL (0.0-0.5) Basophils # (Auto) 0.1 K/uL (0.0-0.1) Nucleated RBC Absolute Count (auto) 0.00 K/uL Sodium Level 139 mmol/L (137-145) Potassium Level 3.9 mmol/L (3.5-5.0) Chloride Level 104 mmol/L (98-107) Carbon Dioxide Level 18 mmol/L (22-30) Blood Urea Nitrogen 11 mg/dl (9-21) Creatinine 0.90 mg/dl (0.66-1.25) Glomerular Filtration Rate Calc > 60.0 Random Glucose 72 mg/dl (75-110) Calcium Level 8.9 mg/dl (8.4-10.2) Magnesium Level 1.7 mg/dl (1.7-2.2) Total Bilirubin 0.4 mg/dl (0.2-1.3) Aspartate Amino Transf (AST/SGOT) 45 U/L (0-35) Alanine Aminotransferase (ALT/SGPT) 61 U/L (0-56) Alkaline Phosphatase 64 U/L (0-126) Total Protein 7.1 g/dl (6.3-8.2) Albumin 4.2 g/dl (3.5-5.0) Salicylates Level < 10 mg/L Salicylate Last Dose Date unk Acetaminophen Level < 10 ug/ml Serum Alcohol 123 mg/dl Chemistry Test 05/06/18 15:45 05/06/18 18:19 Urine Color Yellow Urine Clarity Clear Urine pH 5.0 pH (4.8-9.5) Urine Specific [place] 1.019 Urine Protein Negative mg/dL (NEGATIVE) Urine Glucose (UA) Negative mg/dL (NEGATIVE) Urine Ketones 20 mg/dL (NEGATIVE) Urine Blood Negative (NEGATIVE) Urine Nitrite Negative (NEGATIVE) Urine Bilirubin Negative (NEGATIVE) Urine Urobilinogen 2.0 mg/dL (0.2-1.9) Urine Leukocyte Esterase Negative (NEGATIVE) Urine RBC None /HPF (0-2/HPF) Urine WBC 2 /HPF (0-5/HPF) Urine Squamous Epithelial Cells None /LPF (</=FEW) Urine Bacteria Negative /HPF (NONE-FEW) Urine Hyaline Casts Few /LPF (NONE-FEW) Urine Mucus Few /HPF (NONE-FEW) Urine Opiates Screen Negative Urine Barbiturates Screen Negative Ur Tricyclic Antidepressants Screen Negative Urine Phencyclidine Screen Negative Urine Amphetamines Screen Negative Urine Benzodiazepines Screen Negative Urine Cocaine Screen Negative Urine Cannabinoids Screen Negative White Blood Count 5.8 k/uL (4.5-11.0) Red Blood Count 5.05 M/uL (4.00-5.60) Hemoglobin 15.6 g/dL (14.0-18.0) Hematocrit 45.2 % (42.0-52.0) Mean Corpuscular Volume 89.5 fL (80.0-96.0) Mean Corpuscular Hemoglobin 30.8 pg (26.0-33.0) Mean Corpuscular Hemoglobin Concent 34.4 g/dL (32.0-36.0) Red Cell Distribution Width 14.1 % (11.5-14.5) Platelet Count 340 K/uL (150-450) Mean Platelet Volume 7.1 fL (7.2-11.1) Neutrophils (%) (Auto) 71.0 % (39.4-72.5) Lymphocytes (%) (Auto) 19.1 % (17.6-49.6) Monocytes (%) (Auto) 6.8 % (4.1-12.4) Eosinophils (%) (Auto) 1.9 % (0.4-6.7) Basophils (%) (Auto) 1.2 % (0.3-1.4) Nucleated RBC Relative Count (auto) 0.0 /100WBC Neutrophils # (Auto) 4.1 K/uL (2.0-7.4) Lymphocytes # (Auto) 1.1 K/uL (1.3-3.6) Monocytes # (Auto) 0.4 K/uL (0.3-1.0) Eosinophils # (Auto) 0.1 K/uL (0.0-0.5) Basophils # (Auto) 0.1 K/uL (0.0-0.1) Nucleated RBC Absolute Count (auto) 0.00 K/uL Glomerular Filtration Rate Calc > 60.0 Calcium Level 8.9 mg/dl (8.4-10.2) Magnesium Level 1.7 mg/dl (1.7-2.2) Total Bilirubin 0.4 mg/dl (0.2-1.3) Aspartate Amino Transf (AST/SGOT) 45 U/L (0-35) Alanine Aminotransferase (ALT/SGPT) 61 U/L (0-56) Alkaline Phosphatase 64 U/L (0-126) Total Protein 7.1 g/dl (6.3-8.2) Albumin 4.2 g/dl (3.5-5.0) Salicylates Level < 10 mg/L Salicylate Last Dose Date unk Acetaminophen Level < 10 ug/ml Serum Alcohol 123 mg/dl Toxicology Test 05/06/18 15:45 05/06/18 18:19 Urine Opiates Screen Negative Urine Barbiturates Screen Negative Ur Tricyclic Antidepressants Screen Negative Urine Phencyclidine Screen Negative Urine Amphetamines Screen Negative Urine Benzodiazepines Screen Negative Urine Cocaine Screen Negative Urine Cannabinoids Screen Negative Salicylates Level < 10 mg/L Salicylate Last Dose Date unk Acetaminophen Level < 10 ug/ml Serum Alcohol 123 mg/dl Urinalysis Test 05/06/18 15:45 Urine Color Yellow Urine Clarity Clear Urine pH 5.0 pH (4.8-9.5) Urine Specific [place] 1.019 Urine Protein Negative mg/dL (NEGATIVE) Urine Glucose (UA) Negative mg/dL (NEGATIVE) Urine Ketones 20 mg/dL (NEGATIVE) Urine Blood Negative (NEGATIVE) Urine Nitrite Negative (NEGATIVE) Urine Bilirubin Negative (NEGATIVE) Urine Urobilinogen 2.0 mg/dL (0.2-1.9) Urine Leukocyte Esterase Negative (NEGATIVE) Urine RBC None /HPF (0-2/HPF) Urine WBC 2 /HPF (0-5/HPF) Urine Squamous Epithelial Cells None /LPF (</=FEW) Urine Bacteria Negative /HPF (NONE-FEW) Urine Hyaline Casts Few /LPF (NONE-FEW) Urine Mucus Few /HPF (NONE-FEW) ED Course/Re-evaluation ED Course Patient was admitted to an examination room. H&P was done. The differential diagnoses was considered. Patient with acute psychosis. Police placed him on an emergency retirement. Diagnostic evaluation was undertaken. His blood alcohol returned at 123. His tox screen is negative. Patient is evaluated title 25 evaluation shows patient is gravely disabled. His emergency retirement is upheld. He'll be admitted to [facility]. He is medicated with Zyprexa 10 mg by mouth, Benadryl 25. 05/06/2018 7:24:18 pm case discussed with Dr. Francie Soler psychiatrist on- call, who accepts the patient for admission to [facility]. Decision to Disposition Date: May 06, 2018 Decision to Disposition Time: 18:19 Date of Report: May 06, 2018 Examiner: Dr. Cortés Patient Detained By: Law Enforcement Date Patient Detained: May 06, 2018 Time Patient Detained: 18:05 Date Halfway Expires: May 11, 2018 Time Halfway Expires: 18:05 Legal Status: Police Hold: No Legal Status: Relationship: Single Legal Status: Residence: [facility] Resident Assessment Data Provided By: Law Enforcement, Other Source Chief Complaint: 57-year-old male with a history of schizophrenia and psychosis. He's had 2 recent admissions to [facility]. He is brought in today. When the patient's son ca lled police since he's becoming confused and agitated. Patient's has become progressively worse over the last week. He has acute delusions that he is being persecuted or harmed by his roommate Dk and his son who he lives with. Patient was discharged on Zyprexa 10 mg at bedtime after his last admission from 01/10 through 01/18 Diagnosis: Acute psychosis, history of schizophrenia ? Emergency Medical/Psych Tx: 2 previous admissions to [facility] in December of this year for similar presentation Current Risk Summary: Patient is gravely disabled due to his acute psychosis and paranoid delusions. I think the retirement should be upheld for patient safety reasons. 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
[2018-05-06 18:31] LABS: PLATELET COUNT, AUTOMATED 340 K/uL (150-450)
[2018-05-06] MEDS ORDERED: OLANZapine ZYDIS ODT 5MG TABDP PO ONE (19:25)
[2018-05-06] MEDS ORDERED: diphenhydrAMINE 25 MG CAP PO ONE (19:25)
[2018-05-06 20:30] VITALS: BP 157/146
== END 2018-05-06 20:55 ==
LOC: ER 18:03
DX: F23 Brief psychotic disorder (principal)
CPT/HCPCS: 36415; 80305; 80320; 80329; 81001; 82040; 82247; 82310; 82374; 82435; 82565; 82947; 83735; 84075; 84132; 84155; 84295; 84443; 84450; 84460; 84520; 85025; 99284

== ENCOUNTER 2018-05-06 19:46 | Inpatient (IN) | payer OTHER ==
[~2018-05-06] VITALS: Ht 177.8 cm; Wt 86.2 kg
--- NOTE | 2018-05-06 21:08 | BHS - Psychiatric Evaluation ---
ER - Title 25 MHE Evaluation Title 25 Evaluation Patient Detained By: Law Enforcement Referral Source: Professional: Law Enforcement, Upheld by Dr. Adin Cortés Date Patient Detained: May 06, 2018 Time Patient Detained: 18:05 Date Fci Expires: May 11, 2018 Time Fci Expires: 18:00 Legal Status: Police Hold: No Legal Status: Residence: [facility] Resident, State Resident Assessment Data Provided By: Patient, Law Enforcement (), Other Source (ER Physician, Dr. Adin Cortés) HPI/ROS: From Dr. adin Cortés. "57-year-old male brought in by police with acute confusion and agitation on an emergency long term. Patient has a known history of schizophrenia. He's been admitted to our behavioral health service on 2 previous occasions in December of this year. Police were called today by his son and his roommate who he lives with. He is expressing paranoid ideas of persecution. He's been placing knives around the doorway to keep the evil spirits out. He states that he is afraid of his son and his roommate. He feels unsafe. 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 All the time. Patient denies alcohol or illicit substance use. Police report that he was a missing person approximately 2 weeks ago. He was missing for 10 days. Patient states he traveled to [place] and [place], [place]. There were some concerns that patient is noncompliant with his CPAP for his sleep apnea and patient becomes symptomatic from sleep deprivation. . . Patient is gravely disabled due to his acute psychosis and paranoid delusions. I think the long term should be upheld for patient safety reasons." Admit due to SI or Attempt: No Suicide Plan: No Plan Alcohol or Drugs Involved: Yes (Alcohol Use) Is Patient Info Reliable: No (Patient has psychosis.) Is Collateral Info Reliable: Yes () Current Home Psych Meds: Reports not taking his antipsychotic medication. Mental Status Exam General Appearance: Casual, Good Eye Contact, Cooperative, Polite Speech: Clear, Other (Slight sing- song jen to speech) Mood: Dysthmic/Depressed (Says sighing sadly, "I never want to go to [place] again." ) Affect: Sad Thought Process: Other ([place], statements are shallow at this time focusing on feeling tired and wanting some snacks.) Thought Content: Delusions (Feels his sons are abusing him.) Cognition: Alert & Oriented-Person, Alert & Oriented-Place; No Alert & Oriented-Time, No Skcyg-Qicfiiwd-Opxvkoqpi Memory: Immediate Insight Judgment: Poor Delusions: Persecutory Current Risk & History Current Dangerous Risk Assessm: Protective Factors (Very congenial), Ubable to Care for Self Past Dangerous Risk Assessm: Self-Injurious Behaviors (Has been walking around in psychosis at least twice this last year. ) Prior Alcohol/Drug Abuse Reports alcohol use in history Previous Suicide Attempt: No Previous Attempt (Patient has expressed feeling down before, but presenting problem requiring hospitalization is not suicidal ideation, instead it is psychosis.) Previous Psychiatric Illness: Yes Previous Diagnosis/Treatment: Hopsitalized several times within the past year at [facility]. Previous Psychiatric Treatment: Yes Risk Assessment & Disposition Evaluated Risk Assessment: From Dr. Adin Cortés, "Patient is gravely disabled due to his acute psychosis and paranoid delusions. I think the long term should be upheld for patient safety reasons." Impression: Primary Impression: Schizophrenia, acute undifferentiated Meets Mental Illness Req.: Yes Meets Dangerousness Req.: Yes Emergency Fci to be: Upheld Decision Comment: From Dr. Adin Cortés, "Patient is gravely disabled due to his acute psychosis and paranoid delusions. I think the long term should be upheld for patient safety reasons." Date of Decision: May 06, 2018 Time of Decision: 20:18 Patient is Medically Stable at: Yes Disposition: [facility] JENIFFER THOMSON LPC May 06, 2018 21:08
[2018-05-06 22:08] VITALS: BP 142/85
[2018-05-06] MEDS ORDERED: OLANZapine 5 MG TAB PO PRN (22:45)
[2018-05-06] MEDS ORDERED: LORazepam 1 MG TAB PO PRN (22:45)
[2018-05-07] MEDS: MULTIVITAMINS PO SCH (07:37)
[2018-05-07 12:03] VITALS: BP 98/70
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
[2018-05-07] MEDS: QUEtiapine FUM 100 MG TAB PO SCH (20:55)
[2018-05-08 06:22] VITALS: BP 119/68
[2018-05-08] MEDS: MULTIVITAMINS PO SCH (08:22)
[2018-05-08 11:25] VITALS: BP 116/72
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
[2018-05-08 19:55] VITALS: BP 141/82
[2018-05-08] MEDS: QUEtiapine FUM 100 MG TAB PO SCH (21:23)
[2018-05-09 06:14] VITALS: BP 120/63
[2018-05-09] MEDS: MULTIVITAMINS PO SCH (07:49)
[2018-05-09 13:32] VITALS: BP 117/63
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
[2018-05-09] MEDS: NICOTINE POLACRILEX 2 MG GUM PO PRN (19:23)
[2018-05-09 20:50] VITALS: BP 138/78
[2018-05-09] MEDS ORDERED: QUEtiapine FUM 100 MG TAB PO SCH (21:00)
[2018-05-10] MEDS: NICOTINE POLACRILEX 2 MG GUM PO PRN ×3 (02:07→17:24)
[2018-05-10 06:06] VITALS: BP 107/88
[2018-05-10] MEDS: MULTIVITAMINS PO SCH (08:07)
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
[2018-05-10 15:04] VITALS: BP 146/87
[2018-05-10] MEDS ORDERED: QUEtiapine FUM 100 MG TAB PO SCH (21:00)
[2018-05-10 22:43] VITALS: BP 127/82
[2018-05-11] MEDS: MULTIVITAMINS PO SCH (07:58)
[2018-05-11] MEDS: NICOTINE POLACRILEX 2 MG GUM PO PRN ×3 (08:00→17:27)
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
[2018-05-11 10:36] VITALS: BP 121/83
[2018-05-11 16:10] VITALS: BP 120/74
[2018-05-11] MEDS: QUEtiapine FUM 100 MG TAB PO SCH (20:54)
[2018-05-12 03:48] VITALS: BP 139/87
[2018-05-12] MEDS: NICOTINE POLACRILEX 2 MG GUM PO PRN ×3 (07:26→19:11)
[2018-05-12] MEDS: MULTIVITAMINS PO SCH (08:07)
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
[2018-05-12] MEDS: QUEtiapine FUM 100 MG TAB PO SCH (21:16)
[2018-05-12 22:11] VITALS: BP 145/90
[2018-05-13 06:29] VITALS: BP 120/68
[2018-05-13] MEDS: MULTIVITAMINS PO SCH (08:07)
[2018-05-13] MEDS: NICOTINE POLACRILEX 2 MG GUM PO PRN ×3 (08:30→19:41)
--- NOTE | 2018-05-13 16:51 | BHS Progress Note ---
[facility] - Subjective Progress Notes Subjective Pt seen in treatment team with his son on the speaker phone. Pt continues to be paranoid, without insight into his illness. Says he is here for his own safety only. He became louder and agitated on the phone with his son, claiming son was against him. At first refusing my suggestion that we increase seroquel to 500 mg tonight, later he did agree to do so. He has been cooperative for the most part on the unit, eating and sleeping well, no signs of oversedation in the mornings from the seroquel the night before. Awaiting bed at [facility], increase s eroquel to 500 mg tonight. Suicidal Ideation: None Homicidal Ideation: None [facility] - Objective Physical Exam Vital Signs Vital Signs 05/13/18 06:29 Temp 98.9 Pulse 69 Resp 16 B/P (MAP) 120/68 (85) Pulse Ox 95 O2 Delivery Room Air Muscle Strength and Tone: WNL Gait and Station: Steady [facility] Medications Reviewed: Side Effects, Benefits of Medication, Risks Allergies Reviewed: Yes Mental Status Exam General Appearance: Casual, Well Groomed, Good Eye Contact (Fair at times); No Cooperative; Polite (Overall); No Good Interaction; Psychomotor Agitation; No Bizarre Mannerisms, No Tics Speech: Clear, Spontaneous, Other (Slight sing- song jen to speech) Mood: Dysthmic/Depressed (improved) Affect: No Calm; Neutral, Flat Thought Process: No Logical, No Loose Associations, No Flight of Ideas; Other (Illogical) Thought Content: No Suicidal Ideation, No Homicidal Ideation; Delusions (Talks about a man trying to harm him), Auditory Halllucinations (Seems preoccupied at times), Ideas of Reference; No Obsessions, No Compulsions Sensorium: Clear Cognition: Alert & Oriented-Person, Alert & Oriented-Place, Alert & Oriented- Time; No Tqrxd-Mxtmscwh-Xnzxtuhck Memory: Immediate, Recent, Remote Intelligence: Average Insight Judgment: Poor (Current significant impairment) [facility] Assessment and Plan Savt-ob-Mhma Encounter Date: May 13, 2018 Cuvw-xz-Kwiy Encounter Time: 08:30 [facility] Plan: Necessary Precautions, Individual/Group Therapy, Admin/Titrate Meds, Educate Patient Tobacco Medications: Not Appropriate Condition Multpiple Antipsychotics Used: No Problems: (1) Schizophrenia Status: Chronic Problem Qualifiers (1) Schizophrenia: Schizophrenia type: paranoid schizophrenia Qualified Codes: F20.0 - Paranoid schizophrenia HOLA HOLLAND MD May 13, 2018 16:51
[2018-05-13] MEDS: QUEtiapine FUM 100 MG TAB PO SCH (20:56)
[2018-05-14 06:47] VITALS: BP 130/70
[2018-05-14] MEDS: MULTIVITAMINS PO SCH (07:21)
[2018-05-14] MEDS: NICOTINE POLACRILEX 2 MG GUM PO PRN ×4 (07:22→19:46)
[2018-05-14 09:25] VITALS: BP 124/78
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
[2018-05-14 17:45] VITALS: BP 142/70
[2018-05-14] MEDS: QUEtiapine FUM 100 MG TAB PO SCH (21:20)
[2018-05-15 05:06] VITALS: BP 130/78
[2018-05-15] MEDS: NICOTINE POLACRILEX 2 MG GUM PO PRN ×3 (08:35→17:36)
[2018-05-15] MEDS: MULTIVITAMINS PO SCH (08:35)
--- NOTE | 2018-05-15 10:31 | BHS Progress Note ---
[facility] - Subjective Progress Notes Subjective "I was wondering if I could live with Baldo for a while. I'm stabilized now. I'm doing pretty good. I probably need less medication." Sleep "I'm doing better with it," CPAP "I don't need a cpap. I have a natural way of healing myself." Reports he worked nights and difficult to sleep throughout night complete Depression, "I haven't been depressed for a long time." Racing thoughts, "My mind stays busy," Denies [facility] Anxiety "Just about leaving here." Talks about dangerous situations while in [place] and [place] Paranoia "there's a difference between paranoia and safety, I'm righteous right now." Suicidal Ideation: None Homicidal Ideation: None [facility] - Objective Physical Exam Vital Signs Vital Signs Date Time Temp Pulse Resp B/P (MAP) Pulse Ox O2 Delivery O2 Flow Rate FiO2 05/15/18 05:06 97.3 74 130/78 (95) 96 Room Air 05/14/18 17:45 16 Muscle Strength and Tone: WNL Gait and Station: Steady [facility] Medications Reviewed: Side Effects, Benefits of Medication, Risks Allergies Reviewed: Yes Mental Status Exam General Appearance: Casual, Well Groomed, Good Eye Contact (Fair at times); No Cooperative; Polite (Overall); No Good Interaction; Psychomotor Agitation; No Bizarre Mannerisms, No Tics Speech: Clear, Spontaneous, Rambling, Other (Slight sing- song jen to speech) Mood: Dysthmic/Depressed (improved) Affect: No Calm; Neutral, Flat, Anxious Thought Process: No Logical, No Loose Associations; Flight of Ideas, Other (Illogical) Thought Content: No Suicidal Ideation, No Homicidal Ideation; Delusions (Talks about a man trying to harm him), Auditory Halllucinations (Seems preoccupied at times); No Visual Hallucinations; Ideas of Reference; No Obsessions, No Compulsions Sensorium: Clear Cognition: Alert & Oriented-Person, Alert & Oriented-Place, Alert & Oriented- Time; No Vkdgj-Vtcwvucc-Rfxpwoapr Memory: Immediate, Recent, Remote Intelligence: Average Insight Judgment: Poor (Current significant impairment) Microbiology Medications (Trade) Dose Ordered Sig/Reema Route PRN Reason Start Time Stop Time Status Last Admin Dose Admin Multivitamins (Thera-M Enhanced Tab (Or Equiv)) 1 each QDAY PO 05/07/18 09:00 06/06/18 08:59 05/15/18 08:35 Nicotine Polacrilex (Nicorette 2 Mg Gum (Or Equiv)) 2 mg Q1-2H PRN PO NICOTINE REPLACEMENT 05/07/18 10:40 06/06/18 10:39 05/15/18 08:35 Quetiapine Fumarate (SEROquel 100 MG TAB (OR EQUIV)) 500 mg QHS PO 05/13/18 21:00 06/12/18 20:59 05/14/18 21:20 Imaging Allergies Coded Allergies Penicillins (Verified Allergy, Intermediate, RASH, 12/10/17) erythromycin base (Verified Adverse Reaction, Mild, NAUSEA/VOMITING, 12/10/17) [facility] Assessment and Plan Xfim-mw-Vile Encounter Date: May 15, 2018 Xlhd-fx-Iofv Encounter Time: 10:27 [facility] Plan: Necessary Precautions, Individual/Group Therapy, Admin/Titrate Meds, Educate Patient Tobacco Medications: Not Appropriate Condition Multpiple Antipsychotics Used: No Problems: (1) Schizophrenia Status: Chronic Condition Continue Quetiapine Maintain precautions Awaiting [facility] bed availability Problem Qualifiers (1) Schizophrenia: Schizophrenia type: paranoid schizophrenia Qualified Codes: F20.0 - Paranoid schizophrenia EMMA GIANG NP May 15, 2018 10:31
[2018-05-15 13:15] VITALS: BP 116/60
[2018-05-15 18:40] VITALS: BP 108/60
[2018-05-15] MEDS ORDERED: QUEtiapine FUM 100 MG TAB PO SCH (21:00)
[2018-05-16 05:26] VITALS: BP 115/67
[2018-05-16] MEDS: NICOTINE POLACRILEX 2 MG GUM PO PRN ×3 (07:44→16:02)
[2018-05-16] MEDS: MULTIVITAMINS PO SCH (09:10)
[2018-05-16 11:07] VITALS: BP 118/62
--- NOTE | 2018-05-16 15:10 | BHS Progress Note ---
[facility] - Subjective Progress Notes Subjective Patient still exhibiting what appears to be paranoia against his son with whom he was recently living. Patient has complaints of 600mg seroquel being too much for him last night. Will decrease to 500mg tonight. patient again encouraged to wear C-pap machine, but refuses. Will plan to monitor overnight oxygen again when pulse ox is available. Hearing will be this week, for commitment to [facility]. Suicidal Ideation: None Homicidal Ideation: None [facility] - Objective Physical Exam Vital Signs Vital Signs Date Time Temp Pulse Resp B/P (MAP) Pulse Ox O2 Delivery O2 Flow Rate FiO2 05/16/18 11:07 99.0 96 118/62 (80) 93 Room Air 05/16/18 05:26 16 Muscle Strength and Tone: WNL Gait and Station: Steady [facility] Medications Reviewed: Side Effects, Benefits of Medication, Risks Allergies Reviewed: Yes Mental Status Exam General Appearance: Casual, Well Groomed, Good Eye Contact (Fair at times); No Cooperative; Polite (Overall); No Good Interaction; Psychomotor Agitation; No Bizarre Mannerisms, No Tics Speech: Clear, Spontaneous, Rambling, Other (Slight sing- song jen to speech) Mood: Dysthmic/Depressed (improved) Affect: No Calm; Neutral, Flat, Anxious Thought Process: No Logical, No Loose Associations; Flight of Ideas, Other (Illogical) Thought Content: No Suicidal Ideation, No Homicidal Ideation; Delusions (Talks about a man trying to harm him), Auditory Halllucinations (Seems preoccupied at times); No Visual Hallucinations; Ideas of Reference; No Obsessions, No Compulsions Sensorium: Clear Cognition: Alert & Oriented-Person, Alert & Oriented-Place, Alert & Oriented- Time; No Puvva-Tlfkpjyj-Kagheqhtd Memory: Immediate, Recent, Remote Intelligence: Average Insight Judgment: Poor (Current significant impairment) [facility] Assessment and Plan Jjdh-xu-Rjmz Encounter Date: May 16, 2018 Jnxb-qc-Nmni Encounter Time: 14:00 [facility] Plan: Necessary Precautions, Individual/Group Therapy, Admin/Titrate Meds, Educate Patient Tobacco Medications: Not Appropriate Condition Multpiple Antipsychotics Used: No Problems: (1) Schizophrenia Status: Chronic (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 Last Edited By: Anay Rhoades on May 09, 2018 15:06 Status: Chronic (3) Mass in region of sella turcica present on magnetic resonance imaging Status: Chronic (4) Obstructive sleep apnea Optional Permanent Comment: untreated, patient refusing Last Edited By: Anay Rhoades on May 09, 2018 15:06 Status: Chronic Condition 1. lower seroquel to 500mg 2. encourage c pap use. 3. hearing this week. Problem Qualifiers (1) Schizophrenia: Schizophrenia type: paranoid schizophrenia Qualified Codes: F20.0 - Paranoid schizophrenia ANAY RHOADES MD May 16, 2018 15:10
[2018-05-16] MEDS: QUEtiapine FUM 100 MG TAB PO SCH (21:08)
[2018-05-16 21:52] VITALS: BP 113/77
[2018-05-17] MEDS: NICOTINE POLACRILEX 2 MG GUM PO PRN ×5 (03:28→18:20)
[2018-05-17] MEDS: ACETAMINOPHEN 325 MG TAB PO PRN (03:28)
[2018-05-17 06:43] VITALS: BP 114/68
[2018-05-17] MEDS: MULTIVITAMINS PO SCH (08:23)
--- NOTE | 2018-05-17 11:53 | BHS Progress Note ---
[facility] - Subjective Progress Notes Subjective Patient continues to demonstrate some irritation during meeting with this provider. Will continue current medications. Patient reports no other concerns. Agrees to wear pulse ox tonight. Suicidal Ideation: None Homicidal Ideation: None [facility] - Objective Physical Exam Vital Signs Vital Signs Date Time Temp Pulse Resp B/P (MAP) Pulse Ox O2 Delivery O2 Flow Rate FiO2 05/17/18 06:43 98.6 69 16 114/68 (83) 95 Room Air Muscle Strength and Tone: WNL Gait and Station: Steady [facility] Medications Reviewed: Side Effects, Benefits of Medication, Risks Allergies Reviewed: Yes Mental Status Exam General Appearance: Casual, Well Groomed, Good Eye Contact (Fair at times); No Cooperative; Polite (Overall); No Good Interaction; Psychomotor Agitation (some); No Bizarre Mannerisms, No Tics Speech: Clear, Spontaneous; No Slurred, No Garbled, No Rambling, No Inappropriate; Other (Slight sing- song jen to speech) Mood: Dysthmic/Depressed (improved) Affect: No Calm; Neutral, Flat, Anxious Thought Process: No Logical, No Loose Associations; Flight of Ideas, Other (Illogical) Thought Content: No Suicidal Ideation, No Homicidal Ideation; Delusions (Talks about son and roomate trying to harm him), Auditory Halllucinations (Seems p reoccupied at times); No Visual Hallucinations; Ideas of Reference; No Obsessions, No Compulsions Sensorium: Clear Cognition: Alert & Oriented-Person, Alert & Oriented-Place, Alert & Oriented- Time; No Zbrom-Ttssajvh-Rpdzqatsw Memory: Immediate, Recent, Remote Intelligence: Average Insight Judgment: Poor (Current significant impairment) [facility] Assessment and Plan Cdmh-pp-Otzq Encounter Date: May 17, 2018 Aqjw-ym-Limu Encounter Time: 11:30 [facility] Plan: Necessary Precautions, Individual/Group Therapy, Admin/Titrate Meds, Educate Patient Tobacco Medications: Not Appropriate Condition Multpiple Antipsychotics Used: No Problems: (1) Schizophrenia Status: Chronic (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 Last Edited By: Anay Rhoades on May 09, 2018 15:06 Status: Chronic (3) Mass in region of sella turcica present on magnetic resonance imaging Status: Chronic (4) Obstructive sleep apnea Optional Permanent Comment: untreated, patient refusing Last Edited By: Anay Rhoades on May 09, 2018 15:06 Status: Chronic Problem Qualifiers (1) Schizophrenia: Schizophrenia type: paranoid schizophrenia Qualified Codes: F20.0 - Paranoid schizophrenia ANAY RHOADES MD May 17, 2018 11:53
[2018-05-17 14:31] VITALS: BP 112/71
[2018-05-17] MEDS: QUEtiapine FUM 100 MG TAB PO SCH (20:44)
[2018-05-18 06:08] VITALS: BP 108/68
[2018-05-18] MEDS: MULTIVITAMINS PO SCH (08:02)
[2018-05-18] MEDS: NICOTINE POLACRILEX 2 MG GUM PO PRN ×4 (08:03→17:43)
[2018-05-18] MEDS: HYPROMELLOSE 0.4% LUB 15ML BTL OD PRN ×3 (13:07→21:03)
--- NOTE | 2018-05-18 14:15 | BHS Progress Note ---
[facility] - Subjective Progress Notes Subjective Patient's overall paranoia previously directed in part toward his son is lessening now, as patient is compliant with seroquel at . Overnight pulse ox indicated some minimal amount of low oxygen saturations, and patient now willing to trial of c-pap machine while on the unit. Hearing set for Wednesday, and Patient is more open in talking with his sons, especially son he has been previously living with who was the focus of paranoia. Suicidal Ideation: None Homicidal Ideation: None [facility] - Objective Physical Exam Vital Signs Vital Signs Date Time Temp Pulse Resp B/P (MAP) Pulse Ox O2 Delivery O2 Flow Rate FiO2 05/18/18 06:08 98.3 91 16 108/68 (81) 93 Room Air Muscle Strength and Tone: WNL Gait and Station: Steady [facility] Medications Reviewed: Side Effects, Benefits of Medication, Risks Allergies Reviewed: Yes Mental Status Exam General Appearance: Casual, Well Groomed, Good Eye Contact (Fair at times); No Cooperative; Polite (Overall); No Good Interaction; Psychomotor Agitation (some); No Bizarre Mannerisms, No Tics Speech: Clear, Spontaneous; No Slurred, No Garbled, No Rambling, No Inappropriate; Other (Slight sing- song jen to speech) Mood: Dysthmic/Depressed (improved) Affect: No Calm; Neutral, Flat, Anxious Thought Process: No Logical, No Loose Associations; Flight of Ideas, Other (Illogical) Thought Content: No Suicidal Ideation, No Homicidal Ideation; Delusions (Talks about son and roomate trying to harm him), Auditory Halllucinations (Seems preoccupied at times); No Visual Hallucinations; Ideas of Reference; No Obsessions, No Compulsions Sensorium: Clear Cognition: Alert & Oriented-Person, Alert & Oriented-Place, Alert & Oriented- Time; No Uoboh-Alscfvxt-Jxwvdpsoe Memory: Immediate, Recent, Remote Intelligence: Average Insight Judgment: Poor (Current significant impairment) [facility] Assessment and Plan Drfm-xc-Afkb Encounter Date: May 18, 2018 Hczz-nh-Ymih Encounter Time: 09:00 [facility] Plan: Necessary Precautions, Individual/Group Therapy, Admin/Titrate Meds, Educate Patient Tobacco Medications: Not Appropriate Condition Multpiple Antipsychotics Used: No Problems: (1) Schizophrenia Status: Chronic (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 Last Edited By: Anay Rhoades on May 09, 2018 15:06 Status: Chronic (3) Mass in region of sella turcica present on magnetic resonance imaging Status: Chronic (4) Obstructive sleep apnea Optional Permanent Comment: untreated, patient today states he is open to wearing c-pap Last Edited By: Anay Rhoades on May 18, 2018 14:15 Status: Chronic Condition 1. continue treatment. 2. encourage c-pap. Problem Qualifiers (1) Schizophrenia: Schizophrenia type: paranoid schizophrenia Qualified Codes: F20.0 - Paranoid schizophrenia ANAY RHOADES MD May 18, 2018 14:15
[2018-05-18] MEDS: QUEtiapine FUM 100 MG TAB PO SCH (21:03)
[2018-05-18 21:38] VITALS: BP 123/78
[2018-05-19] MEDS: HYPROMELLOSE 0.4% LUB 15ML BTL OD PRN ×3 (08:09→15:48)
[2018-05-19] MEDS: MULTIVITAMINS PO SCH (08:09)
[2018-05-19] MEDS: NICOTINE POLACRILEX 2 MG GUM PO PRN ×4 (08:23→18:30)
--- NOTE | 2018-05-19 10:04 | BHS Progress Note ---
[facility] - Subjective Progress Notes Subjective Patient refused C-pap again last night that he initially stated he would wear. Patient demonstrating limited sleep per nursing report, and patient does not want to increase Seroquel. Will continue to monitor, hearing tomorrow for placement in [facility]. Less paranoia overall. Suicidal Ideation: None Homicidal Ideation: None [facility] - Objective Physical Exam Vital Signs Vital Signs Date Time Temp Pulse Resp B/P (MAP) Pulse Ox O2 Delivery O2 Flow Rate FiO2 05/18/18 21:38 98.7 68 123/78 (93) 97 Room Air 05/18/18 06:08 16 Muscle Strength and Tone: WNL Gait and Station: Steady [facility] Medications Reviewed: Side Effects, Benefits of Medication, Risks Allergies Reviewed: Yes Mental Status Exam General Appearance: Casual, Well Groomed, Good Eye Contact (Fair at times); No Cooperative; Polite (Overall); No Good Interaction; Psychomotor Agitation (some); No Bizarre Mannerisms, No Tics Speech: Clear, Spontaneous; No Slurred, No Garbled, No Rambling, No Inappropriate; Other (Slight sing- song jen to speech) Mood: Dysthmic/Depressed (improved) Affect: No Calm; Neutral, Flat, Anxious Thought Process: No Logical, No Loose Associations; Flight of Ideas, Other (Illogical) Thought Content: No Suicidal Ideation, No Homicidal Ideation; Delusions (Talks about son and roomate trying to harm him), Auditory Halllucinations (Seems preoccupied at times); No Visual Hallucinations; Ideas of Reference; No Obsessions, No Compulsions Sensorium: Clear Cognition: Alert & Oriented-Person, Alert & Oriented-Place, Alert & Oriented- Time; No Hjjpn-Uoweaevv-Omqqsmclf Memory: Immediate, Recent, Remote Intelligence: Average Insight Judgment: Poor (Current significant impairment) [facility] Assessment and Plan Oimt-ej-Xnpw Encounter Date: May 19, 2018 Lucm-yp-Jnwa Encounter Time: 10:00 [facility] Plan: Necessary Precautions, Individual/Group Therapy, Admin/Titrate Meds, Educate Patient Tobacco Medications: Not Appropriate Condition Multpiple Antipsychotics Used: No Problems: (1) Schizophrenia Status: Chronic (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 Last Edited By: Anay Rhoades on May 09, 2018 15:06 Status: Chronic (3) Mass in region of sella turcica present on magnetic resonance imaging Status: Chronic (4) Obstructive sleep apnea Optional Permanent Comment: untreated, patient today states he is open to wearing c-pap Last Edited By: Anay Rhoades on May 18, 2018 14:15 Status: Chronic Condition 1. continue treatment. 2. hearing tomorrow. Problem Qualifiers (1) Schizophrenia: Schizophrenia type: paranoid schizophrenia Qualified Codes: F20.0 - Paranoid schizophrenia ANAY RHOADES MD May 19, 2018 10:04
[2018-05-19 13:26] VITALS: BP 111/80
[2018-05-19] MEDS: QUEtiapine FUM 100 MG TAB PO SCH (21:14)
[2018-05-19 22:26] VITALS: BP 130/72
[2018-05-20 06:09] VITALS: BP 112/60
[2018-05-20] MEDS: NICOTINE POLACRILEX 2 MG GUM PO PRN ×3 (07:46→15:56)
[2018-05-20] MEDS: MULTIVITAMINS PO SCH (08:43)
--- NOTE | 2018-05-20 11:52 | BHS Progress Note ---
[facility] - Subjective Progress Notes Subjective Patient continues to be cooperative today, following court today in which he is now committed to the [facility]. Will continue same medication regimen, and encourage C-pap compliance. Appetite and sleep intact. No other concerns today. Suicidal Ideation: None Homicidal Ideation: None [facility] - Objective Physical Exam Vital Signs Vital Signs Date Time Temp Pulse Resp B/P (MAP) Pulse Ox O2 Delivery O2 Flow Rate FiO2 05/20/18 06:09 97.4 135 112/60 (77) 95 Room Air 05/18/18 06:08 16 Muscle Strength and Tone: WNL Gait and Station: Steady [facility] Medications Reviewed: Side Effects, Benefits of Medication, Risks Allergies Reviewed: Yes Mental Status Exam General Appearance: Casual, Well Groomed, Good Eye Contact (Fair at times); No Cooperative; Polite (Overall); No Good Interaction, No Psychomotor Agitation, No Psychomotor Retardation, No Bizarre Mannerisms, No Tics Speech: Clear, Spontaneous, Other (Slight sing- song jen to speech) Mood: Dysthmic/Depressed (improved) Affect: No Calm; Neutral, Flat Thought Process: No Logical, No Loose Associations, No Flight of Ideas; Other (Illogical) Thought Content: No Suicidal Ideation, No Homicidal Ideation; Delusions (Talks about a man trying to harm him), Auditory Halllucinations (Seems preoccupied at times), Ideas of Reference; No Obsessions, No Compulsions Sensorium: Clear Cognition: Alert & Oriented-Person, Alert & Oriented-Place, Alert & Oriented- Time; No Clopf-Nolcnozv-Nxiflsevx Memory: Immediate, Recent, Remote Intelligence: Average Insight Judgment: Poor (Current significant impairment) [facility] Assessment and Plan Kswz-dk-Lvuz Encounter Date: May 20, 2018 Frwt-uj-Lcoo Encounter Time: 08:00 [facility] Plan: Necessary Precautions, Individual/Group Therapy, Admin/Titrate Meds, Educate Patient Tobacco Medications: Not Appropriate Condition Multpiple Antipsychotics Used: No Problems: (1) Schizophrenia Status: Chronic (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 Last Edited By: Anay Rhoades on May 09, 2018 15:06 Status: Chronic (3) Mass in region of sella turcica present on magnetic resonance imaging Status: Chronic (4) Obstructive sleep apnea Optional Permanent Comment: untreated, patient today states he is open to wearing c-pap Last Edited By: Anay Rhoades on May 18, 2018 14:15 Status: Chronic Condition 1. continue treatment. 2. encourage c-pap machine compliance. Problem Qualifiers (1) Schizophrenia: Schizophrenia type: paranoid schizophrenia Qualified Codes: F20.0 - Paranoid schizophrenia ANAY RHOADES MD May 20, 2018 11:52
[2018-05-20] MEDS: HYPROMELLOSE 0.4% LUB 15ML BTL OD PRN (13:16)
[2018-05-20 15:30] VITALS: BP 106/66
[2018-05-20] MEDS: QUEtiapine FUM 100 MG TAB PO SCH (20:36)
[2018-05-20 21:33] VITALS: BP 141/68
[2018-05-21 06:24] VITALS: BP 120/79
[2018-05-21] MEDS: NICOTINE POLACRILEX 2 MG GUM PO PRN ×3 (08:24→17:27)
[2018-05-21] MEDS: MULTIVITAMINS PO SCH (08:24)
--- NOTE | 2018-05-21 10:59 | BHS Progress Note ---
[facility] - Subjective Progress Notes Subjective "I feel very good." Reports slept well. Denies hallucinations. Polite, cooperative. Suicidal Ideation: None Homicidal Ideation: None [facility] - Objective Physical Exam Vital Signs Vital Signs 05/20/18 05/21/18 15:30 06:24 Temp 98.1 Pulse 122 Resp 16 B/P (MAP) 120/79 (93) Pulse Ox 95 O2 Delivery Room Air Current Medications Medications (Trade) Dose Ordered Sig/Reema Route PRN Reason Start Time Stop Time Status Last Admin Dose Admin Acetaminophen (Tylenol(*)325 Mg Tab (Or Equiv)) 650 mg Q4H PRN PO HEADACHE 05/06/18 22:40 06/05/18 22:39 05/17/18 03:28 Al Hydrox/Mg Hydrox/Simethicone (Maalox(*) 30 ml Udcup (Or Equiv)) 30 ml Q4H PRN PO DYSPEPSIA 05/06/18 22:40 06/05/18 22:39 Multivitamins (Thera-M Enhanced Tab (Or Equiv)) 1 each QDAY PO 05/07/18 09:00 06/06/18 08:59 05/21/18 08:24 Olanzapine (zyPREXA (OR EQUIV)) 5 mg Q2H PRN PO AGITATION 05/06/18 22:45 05/12/18 12:32 DC Lorazepam (Ativan(*) 1 Mg Tab (Or Equiv)) 2 mg Q4H PRN PO ANXIETY 05/06/18 22:45 06/19/18 22:44 Quetiapine Fumarate (SEROquel 100 MG TAB (OR EQUIV)) 100 mg QHS PO 05/07/18 21:00 05/09/18 11:40 DC 05/08/18 21:23 Nicotine Polacrilex (Nicorette 2 Mg Gum (Or Equiv)) 2 mg Q1-2H PRN PO NICOTINE REPLACEMENT 05/07/18 10:40 06/06/18 10:39 05/21/18 08:24 Quetiapine Fumarate (SEROquel 100 MG TAB (OR EQUIV)) 200 mg QHS PO 05/09/18 21:00 05/10/18 10:13 DC 05/09/18 20:20 Quetiapine Fumarate (SEROquel 100 MG TAB (OR EQUIV)) 300 mg QHS PO 05/10/18 21:00 05/11/18 09:39 DC 05/10/18 21:40 Quetiapine Fumarate (SEROquel 100 MG TAB (OR EQUIV)) 400 mg QHS PO 05/11/18 21:00 05/13/18 10:17 DC 05/12/18 21:16 Quetiapine Fumarate (SEROquel 100 MG TAB (OR EQUIV)) 500 mg QHS PO 05/13/18 21:00 05/15/18 10:33 DC 05/14/18 21:20 Quetiapine Fumarate (SEROquel 100 MG TAB (OR EQUIV)) 600 mg QHS PO 05/15/18 21:00 05/16/18 14:20 DC 05/15/18 20:50 Quetiapine Fumarate (SEROquel 100 MG TAB (OR EQUIV)) 500 mg QHS PO 05/16/18 21:00 06/15/18 20:59 05/20/18 20:36 Hypromellose (Natural Balance Tears 0.4% 15 ml Btl) 1-2 DROPS TID PRN OD DRY EYES 05/18/18 09:25 06/17/18 09:24 05/20/18 13:16 Muscle Strength and Tone: WNL Gait and Station: Steady [facility] Medications Reviewed: Side Effects, Benefits of Medication, Risks Allergies Reviewed: Yes Mental Status Exam General Appearance: Casual, Well Groomed, Good Eye Contact (Fair at times); No Cooperative; Polite (Overall); No Good Interaction, No Psychomotor Agitation, No Psychomotor Retardation, No Bizarre Mannerisms, No Tics Speech: Clear, Spontaneous, Other (Slight sing- song jen to speech) Mood: Dysthmic/Depressed (improved) Affect: Full and Appropriate; No Calm Thought Process: No Logical, No Loose Associations, No Flight of Ideas; Other (Illogical) Thought Content: No Suicidal Ideation, No Homicidal Ideation; Delusions (Talks about a man trying to harm him), Auditory Halllucinations (Seems preoccupied at times), Ideas of Reference; No Obsessions, No Compulsions Sensorium: Clear Cognition: Alert & Oriented-Person, Alert & Oriented-Place, Alert & Oriented- Time; No Gwmpu-Goufxvmi-Jwpuigqge Memory: Immediate, Recent, Remote Intelligence: Average Insight Judgment: Poor (Current significant impairment) [facility] Assessment and Plan Zjfx-lk-Raat Encounter Date: May 21, 2018 Lcfz-fh-Dfau Encounter Time: 10:30 S Plan: Necessary Precautions, Individual/Group Therapy, Admin/Titrate Meds, Educate Patient Tobacco Medications: Not Appropriate Condition Multpiple Antipsychotics Used: No Problems: (1) Schizophrenia Status: Chronic Problem Qualifiers (1) Schizophrenia: Schizophrenia type: paranoid schizophrenia Qualified Codes: F20.0 - Paranoid schizophrenia MADELYN BOLTON NP May 21, 2018 10:59
[2018-05-21] MEDS: HYPROMELLOSE 0.4% LUB 15ML BTL OD PRN (11:45)
[2018-05-21 12:59] VITALS: BP 124/84
[2018-05-21] MEDS: QUEtiapine FUM 100 MG TAB PO SCH (20:57)
[2018-05-22 06:20] VITALS: BP 119/76
[2018-05-22] MEDS: NICOTINE POLACRILEX 2 MG GUM PO PRN ×4 (06:39→18:09)
[2018-05-22] MEDS: MULTIVITAMINS PO SCH (07:57)
--- NOTE | 2018-05-22 10:57 | BHS Progress Note ---
BHS - Subjective Progress Notes Subjective "I'm good. I slept good." Client denies hallucinations. He is aware that he is committed to the [facility] although today he reports that he is hoping that he can go home. Suicidal Ideation: None Homicidal Ideation: None S - Objective Physical Exam Vital Signs Vital Signs 05/21/18 05/22/18 12:59 06:20 Temp 98.6 Pulse 110 Resp 18 B/P (MAP) 119/76 (90) Pulse Ox 93 O2 Delivery Room Air Current Medications Medications (Trade) Dose Ordered Sig/Reema Route PRN Reason Start Time Stop Time Status Last Admin Dose Admin Acetaminophen (Tylenol(*)325 Mg Tab (Or Equiv)) 650 mg Q4H PRN PO HEADACHE 05/06/18 22:40 06/05/18 22:39 05/17/18 03:28 Al Hydrox/Mg Hydrox/Simethicone (Maalox(*) 30 ml Udcup (Or Equiv)) 30 ml Q4H PRN PO DYSPEPSIA 05/06/18 22:40 06/05/18 22:39 Multivitamins (Thera-M Enhanced Tab (Or Equiv)) 1 each QDAY PO 05/07/18 09:00 06/06/18 08:59 05/22/18 07:57 Olanzapine (zyPREXA (OR EQUIV)) 5 mg Q2H PRN PO AGITATION 05/06/18 22:45 05/12/18 12:32 DC Lorazepam (Ativan(*) 1 Mg Tab (Or Equiv)) 2 mg Q4H PRN PO ANXIETY 05/06/18 22:45 06/19/18 22:44 Quetiapine Fumarate (SEROquel 100 MG TAB (OR EQUIV)) 100 mg QHS PO 05/07/18 21:00 05/09/18 11:40 DC 05/08/18 21:23 Nicotine Polacrilex (Nicorette 2 Mg Gum (Or Equiv)) 2 mg Q1-2H PRN PO NICOTINE REPLACEMENT 05/07/18 10:40 06/06/18 10:39 05/22/18 07:57 Quetiapine Fumarate (SEROquel 100 MG TAB (OR EQUIV)) 200 mg QHS PO 05/09/18 21:00 05/10/18 10:13 DC 05/09/18 20:20 Quetiapine Fumarate (SEROquel 100 MG TAB (OR EQUIV)) 300 mg QHS PO 05/10/18 21:00 05/11/18 09:39 DC 05/10/18 21:40 Quetiapine Fumarate (SEROquel 100 MG TAB (OR EQUIV)) 400 mg QHS PO 05/11/18 21:00 05/13/18 10:17 DC 05/12/18 21:16 Quetiapine Fumarate (SEROquel 100 MG TAB (OR EQUIV)) 500 mg QHS PO 05/13/18 21:00 05/15/18 10:33 DC 05/14/18 21:20 Quetiapine Fumarate (SEROquel 100 MG TAB (OR EQUIV)) 600 mg QHS PO 05/15/18 21:00 05/16/18 14:20 DC 05/15/18 20:50 Quetiapine Fumarate (SEROquel 100 MG TAB (OR EQUIV)) 500 mg QHS PO 05/16/18 21:00 06/15/18 20:59 05/21/18 20:57 Hypromellose (Natural Balance Tears 0.4% 15 ml Btl) 1-2 DROPS TID PRN OD DRY EYES 05/18/18 09:25 06/17/18 09:24 05/21/18 11:45 Muscle Strength and Tone: WNL Gait and Station: Steady [facility] Medications Reviewed: Side Effects, Benefits of Medication, Risks Allergies Reviewed: Yes Mental Status Exam General Appearance: Casual, Well Groomed, Good Eye Contact (Fair at times); No Cooperative; Polite (Overall); No Good Interaction, No Psychomotor Agitation, No Psychomotor Retardation, No Bizarre Mannerisms, No Tics Speech: Clear, Spontaneous, Other (Slight sing- song jen to speech) Mood: Dysthmic/Depressed (improved) Affect: Full and Appropriate; No Calm Thought Process: No Logical; Goal Directed; No Loose Associations, No Flight of Ideas; Other (Illogical) Thought Content: No Suicidal Ideation, No Homicidal Ideation; Delusions (Talks about a man trying to harm him), Auditory Halllucinations (Seems preoccupied at times), Ideas of Reference; No Obsessions, No Compulsions Sensorium: Clear Cognition: Alert & Oriented-Person, Alert & Oriented-Place, Alert & Oriented- Time; No Cbsqy-Gswtfckc-Nnlmofibn Memory: Immediate, Recent, Remote Intelligence: Average Insight Judgment: Poor (Current significant impairment) [facility] Assessment and Plan Mvyh-ix-Pkyb Encounter Date: May 22, 2018 Vdab-xl-Yfje Encounter Time: 10:00 [facility] Plan: Necessary Precautions, Individual/Group Therapy, Admin/Titrate Meds, Educate Patient Tobacco Medications: Not Appropriate Condition Multpiple Antipsychotics Used: No Problems: (1) Schizophrenia Status: Chronic Problem Qualifiers (1) Schizophrenia: Schizophrenia type: paranoid schizophrenia Qualified Codes: F20.0 - Paranoid schizophrenia MADELYN BOLTON NP May 22, 2018 10:57
[2018-05-22 12:00] VITALS: BP 132/78
[2018-05-22] MEDS: HYPROMELLOSE 0.4% LUB 15ML BTL OD PRN ×2 (12:57→20:36)
[2018-05-22 20:20] VITALS: BP 139/89
[2018-05-22] MEDS: QUEtiapine FUM 100 MG TAB PO SCH (20:36)
[2018-05-23 06:49] VITALS: BP 122/80
[2018-05-23] MEDS: MULTIVITAMINS PO SCH (08:18)
[2018-05-23] MEDS: NICOTINE POLACRILEX 2 MG GUM PO PRN ×3 (08:18→20:42)
--- NOTE | 2018-05-23 09:44 | BHS Progress Note ---
[facility] - Subjective Progress Notes Subjective Patient cooperative today, and states he feels that seroquel is helpful at current dose. He reports not liking Zyprexa in the past that he would stop taking on an outpatient patient. He reports that zyprexa would give him "seizures" that would last up to "12 hours". Patient denies any feelings of internal restlessness while on seroquel, and no involuntary movements are present. Will encourage C-pap compliance. Patient remains number 16 on the wait list for [facility]. Suicidal Ideation: None Homicidal Ideation: None [facility] - Objective Physical Exam Muscle Strength and Tone: WNL Gait and Station: Steady [facility] Medications Reviewed: Side Effects, Benefits of Medication, Risks Allergies Reviewed: Yes Mental Status Exam General Appearance: Casual, Well Groomed, Good Eye Contact (Fair at times); No Cooperative; Polite (Overall); No Good Interaction, No Psychomotor Agitation, No Psychomotor Retardation, No Bizarre Mannerisms, No Tics Speech: Clear, Spontaneous, Other (Slight sing- song jen to speech) Mood: Dysthmic/Depressed (improved) Affect: Full and Appropriate; No Calm Thought Process: No Logical; Goal Directed; No Loose Associations, No Flight of Ideas; Other (Illogical) Thought Content: No Suicidal Ideation, No Homicidal Ideation; Delusions ( lessening paranoia. ), Auditory Halllucinations (Seems preoccupied at times), Ideas of Reference; No Obsessions, No Compulsions Sensorium: Clear Cognition: Alert & Oriented-Person, Alert & Oriented-Place, Alert & Oriented- Time; No Tapzd-Uyhgpbqy-Fwqttpswp Memory: Immediate, Recent, Remote Intelligence: Average Insight Judgment: Poor (Current significant impairment) [facility] Assessment and Plan Nkya-ap-Brct Encounter Date: May 23, 2018 Bsnu-or-Lzjf Encounter Time: 09:00 [facility] Plan: Necessary Precautions, Individual/Group Therapy, Admin/Titrate Meds, Educate Patient Tobacco Medications: Not Appropriate Condition Multpiple Antipsychotics Used: No Problems: (1) Schizophrenia Status: Chronic (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 Last Edited By: Anay Rhoades on May 09, 2018 15:06 Status: Chronic (3) Mass in region of sella turcica present on magnetic resonance imaging Status: Chronic (4) Obstructive sleep apnea Optional Permanent Comment: untreated, patient today states he is open to wearing c-pap Last Edited By: Anay Rhoades on May 18, 2018 14:15 Status: Chronic Condition 1. continue medications. 2. encourage c-pap machine. Problem Qualifiers (1) Schizophrenia: Schizophrenia type: paranoid schizophrenia Qualified Codes: F20.0 - Paranoid schizophrenia ANAY RHOADES MD May 23, 2018 09:44
[2018-05-23] MEDS: HYPROMELLOSE 0.4% LUB 15ML BTL OD PRN (11:50)
[2018-05-23 13:50] VITALS: BP 124/72
[2018-05-23] MEDS: QUEtiapine FUM 100 MG TAB PO SCH (20:42)
[2018-05-23 21:50] VITALS: BP 133/92
[2018-05-24] MEDS: NICOTINE POLACRILEX 2 MG GUM PO PRN ×3 (07:16→19:24)
[2018-05-24] MEDS: MULTIVITAMINS PO SCH (08:31)
--- NOTE | 2018-05-24 09:37 | BHS Progress Note ---
[facility] - Subjective Progress Notes Subjective Patient reports "i am doing great" when asked by this provider today. Patient engaging in push ups in his room, appetite and sleep okay. Denies any other concerns today. Suicidal Ideation: None Homicidal Ideation: None [facility] - Objective Physical Exam Vital Signs Vital Signs Date Time Temp Pulse Resp B/P (MAP) Pulse Ox O2 Delivery O2 Flow Rate FiO2 05/23/18 21:50 98.2 71 133/92 (106) 94 Room Air 05/22/18 12:00 16 Muscle Strength and Tone: WNL Gait and Station: Steady [facility] Medications Reviewed: Side Effects, Benefits of Medication, Risks Allergies Reviewed: Yes Mental Status Exam General Appearance: Casual, Well Groomed, Good Eye Contact (Fair at times); No Cooperative; Polite (Overall); No Good Interaction, No Psychomotor Agitation, No Psychomotor Retardation, No Bizarre Mannerisms, No Tics Speech: Clear, Spontaneous, Other (Slight sing- song jen to speech) Mood: Dysthmic/Depressed (improved) Affect: Full and Appropriate; No Calm Thought Process: No Logical; Goal Directed; No Loose Associations, No Flight of Ideas; Other (Illogical) Thought Content: No Suicidal Ideation, No Homicidal Ideation; Delusions (lessening paranoia. ), Auditory Halllucinations (Seems preoccupied at times), Ideas of Reference; No Obsessions, No Compulsions Sensorium: Clear Cognition: Alert & Oriented-Person, Alert & Oriented-Place, Alert & Oriented- Time; No Ajtgo-Zwqoxdzc-Whvzsurhk Memory: Immediate, Recent, Remote Intelligence: Average Insight Judgment: Poor (Current significant impairment) [facility] Assessment and Plan Fars-wh-Krgi Encounter Date: May 24, 2018 Xlcx-or-Eilx Encounter Time: 09:00 [facility] Plan: Necessary Precautions, Individual/Group Therapy, Admin/Titrate Meds, Educate Patient Tobacco Medications: Not Appropriate Condition Multpiple Antipsychotics Used: No Problems: (1) Schizophrenia Status: Chronic (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 Last Edited By: Anay Rhoades on May 09, 2018 15:06 Status: Chronic (3) Mass in region of sella turcica present on magnetic resonance imaging Status: Chronic (4) Obstructive sleep apnea Optional Permanent Comment: untreated, patient today states he is open to wearing c-pap Last Edited By: Anay Rhoades on May 18, 2018 14:15 Status: Chronic Condition 1. continue treatment. 2. no medication changes. Problem Qualifiers (1) Schizophrenia: Schizophrenia type: paranoid schizophrenia Qualified Codes: F20.0 - Paranoid schizophrenia ANAY RHOADES MD May 24, 2018 09:37
[2018-05-24] MEDS: HYPROMELLOSE 0.4% LUB 15ML BTL OD PRN ×2 (11:10→20:43)
[2018-05-24 12:47] VITALS: BP 121/81
[2018-05-24] MEDS: QUEtiapine FUM 100 MG TAB PO SCH (20:43)
[2018-05-25] MEDS: MULTIVITAMINS PO SCH (08:04)
[2018-05-25] MEDS: NICOTINE POLACRILEX 2 MG GUM PO PRN ×3 (08:17→18:27)
--- NOTE | 2018-05-25 08:45 | BHS Progress Note ---
S - Subjective Progress Notes Subjective Patient continues to be very cooperative on the unit, and is noted to continue to take an active role in his treatment. Patient remains motivated on the unit, exercising, and in good spirits. Sleep, and appetite good. Patient logically explaining why he does not need to go to the [facility], and paranoia seems overall resolved. Patient remains at a high risk of stopping outpatient medications and treatment if released at this time. Patient reporting "there is nothing wrong with me." No other concerns today. Suicidal Ideation: None Homicidal Ideation: None [facility] - Objective Physical Exam Vital Signs Vital Signs Date Time Temp Pulse Resp B/P (MAP) Pulse Ox O2 Delivery O2 Flow Rate FiO2 05/24/18 12:47 99.3 76 121/81 (94) 94 Room Air 05/22/18 12:00 16 Muscle Strength and Tone: WNL Gait and Station: Steady [facility] Medications Reviewed: Side Effects, Benefits of Medication, Risks Allergies Reviewed: Yes Mental Status Exam General Appearance: Casual, Well Groomed, Good Eye Contact (Fair at times), Cooperative, Polite (Overall), Good Interaction; No Tearful, No Psychomotor Agitation, No Psychomotor Retardation, No Bizarre Mannerisms, No Tics Speech: Clear, Spontaneous, Normal Rate, Normal Rhythm, Normal Volume, Normal Tone, Other (Slight sing- song jen to speech) Mood: Euthymic Affect: Full and Appropriate, Calm; No Withdrawn, No Tearful, No Anxious, No Agitated Thought Process: Organized, Logical (mostly), Goal Directed; No Loose Associations, No Flight of Ideas Thought Content: No Suicidal Ideation, No Homicidal Ideation; Delusions (lessening paranoia. ), Auditory Halllucinations (Seems preoccupied at times, but minimal now), Ideas of Reference (concerning previous roomate); No Obsessions, No Compulsions Sensorium: Clear Cognition: Alert & Oriented-Person, Alert & Oriented-Place, Alert & Oriented- Time, Vkhok-Oppjqlqv-Ufknohwkf (mostly) Memory: Immediate, Recent, Remote Intelligence: Average Insight Judgment: Fair (much improvement while on medications) [facility] Assessment and Plan Qysa-lh-Denm Encounter Date: May 25, 2018 Cdhh-ws-Tnhy Encounter Time: 08:40 [facility] Plan: Necessary Precautions, Individual/Group Therapy, Admin/Titrate Meds, Educate Patient Tobacco Medications: Not Appropriate Condition Multpiple Antipsychotics Used: No Problems: (1) Schizophrenia Status: Chronic (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 Last Edited By: Anay Rhoades on May 09, 2018 15:06 Status: Chronic (3) Mass in region of sella turcica present on magnetic resonance imaging Status: Chronic (4) Obstructive sleep apnea Optional Permanent Comment: untreated, patient today states he is open to wearing c-pap Last Edited By: Anay Rhoades on May 18, 2018 14:15 Status: Chronic Condition 1. continue treatment. 2. awaiting [facility] 3. review c-pap machine. Problem Qualifiers (1) Schizophrenia: Schizophrenia type: paranoid schizophrenia Qualified Codes: F20.0 - Paranoid schizophrenia ANAY RHOADES MD May 25, 2018 08:45
[2018-05-25 13:42] VITALS: BP 129/87
[2018-05-25] MEDS: QUEtiapine FUM 100 MG TAB PO SCH (20:35)
[2018-05-25] MEDS: HYPROMELLOSE 0.4% LUB 15ML BTL OD PRN (20:36)
[2018-05-25 21:33] VITALS: BP 142/81
[2018-05-26] MEDS: NICOTINE POLACRILEX 2 MG GUM PO PRN ×3 (08:47→17:30)
[2018-05-26] MEDS: MULTIVITAMINS PO SCH (08:47)
[2018-05-26 10:48] VITALS: BP 132/74
--- NOTE | 2018-05-26 15:13 | BHS Progress Note ---
[facility] - Subjective Progress Notes Subjective Patient continues to be cooperative on the unit, and remains accepting of going to the [facility]. Will continue same medications, and will look into C pap use. Patient denies any concerns today. Suicidal Ideation: None Homicidal Ideation: None [facility] - Objective Physical Exam Vital Signs Vital Signs Date Time Temp Pulse Resp B/P (MAP) Pulse Ox O2 Delivery O2 Flow Rate FiO2 05/26/18 10:48 99.4 92 132/74 (93) 94 Room Air 05/22/18 12:00 16 Muscle Strength and Tone: WNL Gait and Station: Steady [facility] Medications Reviewed: Side Effects, Benefits of Medication, Risks Allergies Reviewed: Yes Mental Status Exam General Appearance: Casual, Well Groomed, Good Eye Contact (Fair at times), Cooperative, Polite (Overall), Good Interaction; No Tearful, No Psychomotor Agitation, No Psychomotor Retardation, No Bizarre Mannerisms, No Tics Speech: Clear, Spontaneous, Normal Rate, Normal Rhythm, Normal Volume, Normal Tone, Other (Slight sing- song jen to speech) Mood: Euthymic Affect: Full and Appropriate, Calm; No Withdrawn, No Tearful, No Anxious, No Agitated Thought Process: Organized, Logical (mostly), Goal Directed; No Loose Associations, No Flight of Ideas Thought Content: No Suicidal Ideation, No Homicidal Ideation; Delusions (lessening paranoia. ), Auditory Halllucinations (Seems preoccupied at times, but minimal now), Ideas of Reference (concerning previous roomate); No Obsessions, No Compulsions Sensorium: Clear Cognition: Alert & Oriented-Person, Alert & Oriented-Place, Alert & Oriented- Time, Tkbam-Jnwffowy-Rydtxvatg (mostly) Memory: Immediate, Recent, Remote Intelligence: Average Insight Judgment: Fair (much improvement while on medications) [facility] Assessment and Plan Lbie-sb-Awvj Encounter Date: May 26, 2018 Yccd-ds-Sjlf Encounter Time: 14:00 [facility] Plan: Necessary Precautions, Individual/Group Therapy, Admin/Titrate Meds, Educate Patient Tobacco Medications: Not Appropriate Condition Multpiple Antipsychotics Used: No Problems: (1) Schizophrenia Status: Chronic (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 Last Edited By: Anay Rhoades on May 09, 2018 15:06 Status: Chronic (3) Mass in region of sella turcica present on magnetic resonance imaging Status: Chronic (4) Obstructive sleep apnea Optional Permanent Comment: untreated, patient today states he is open to wearing c-pap Last Edited By: Anay Rhoades on May 18, 2018 14:15 Status: Chronic Condition 1. continue treatment. 2. no medication changes. Problem Qualifiers (1) Schizophrenia: Schizophrenia type: paranoid schizophrenia Qualified Codes: F20.0 - Paranoid schizophrenia ANAY RHOADES MD May 26, 2018 15:13
[2018-05-26] MEDS: QUEtiapine FUM 100 MG TAB PO SCH (20:59)
[2018-05-27 06:39] VITALS: BP 126/70
[2018-05-27] MEDS: MULTIVITAMINS PO SCH (08:20)
[2018-05-27] MEDS: NICOTINE POLACRILEX 2 MG GUM PO PRN ×3 (08:25→17:45)
[2018-05-27 12:45] VITALS: BP 142/76
--- NOTE | 2018-05-27 13:22 | BHS Progress Note ---
[facility] - Subjective Progress Notes Subjective Patient remains very cooperative on the unit, exercising and taking an overall active role in his treatment. Mood good, and denies any other complaints. Minimal if any signs of psychosis remain at this time. Suicidal Ideation: None Homicidal Ideation: None [facility] - Objective Physical Exam Vital Signs Vital Signs Date Time Temp Pulse Resp B/P (MAP) Pulse Ox O2 Delivery O2 Flow Rate FiO2 05/27/18 06:39 97.2 102 126/70 (88) 92 Room Air Muscle Strength and Tone: WNL Gait and Station: Steady [facility] Medications Reviewed: Side Effects, Benefits of Medication, Risks Allergies Reviewed: Yes Mental Status Exam General Appearance: Casual, Well Groomed, Good Eye Contact (Fair at times), Cooperative, Polite, Good Interaction; No Tearful, No Psychomotor Agitation, No Psychomotor Retardation, No Bizarre Mannerisms, No Tics Speech: Clear, Spontaneous, Normal Rate, Normal Rhythm, Normal Volume, Normal Tone, Other (Slight sing- song jen to speech) Mood: Euthymic Affect: Full and Appropriate, Calm; No Withdrawn, No Tearful, No Anxious, No Agitated Thought Process: Organized, Logical (mostly), Goal Directed; No Loose As sociations, No Flight of Ideas Thought Content: No Suicidal Ideation, No Homicidal Ideation; Delusions (le ssening paranoia. ), Auditory Halllucinations (Seems preoccupied at times, but minimal now), Ideas of Reference (concerning previous roomate); No Obsessions, No Compulsions Sensorium: Clear Cognition: Alert & Oriented-Person, Alert & Oriented-Place, Alert & Oriented- Time, Tyjdx-Fscntamu-Ymybfmsaw (mostly) Memory: Immediate, Recent, Remote Intelligence: Average Insight Judgment: Fair (much improvement while on medications) [facility] Assessment and Plan Xjsa-vb-Ujba Encounter Date: May 27, 2018 Xpkk-dw-Nqjl Encounter Time: 13:00 [facility] Plan: Necessary Precautions, Individual/Group Therapy, Admin/Titrate Meds, Educate Patient Tobacco Medications: Not Appropriate Condition Multpiple Antipsychotics Used: No Problems: (1) Schizophrenia Status: Chronic (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 Last Edited By: Anay Rhoades on May 09, 2018 15:06 Status: Chronic (3) Mass in region of sella turcica present on magnetic resonance imaging Status: Chronic (4) Obstructive sleep apnea Optional Permanent Comment: untreated, patient today states he is open to wearing c-pap Last Edited By: Anay Rhoades on May 18, 2018 14:15 Status: Chronic Condition 1. continue treatment. 2. no medication changes. 3. await [facility]. Problem Qualifiers (1) Schizophrenia: Schizophrenia type: paranoid schizophrenia Qualified Codes: F20.0 - Paranoid schizophrenia ANAY RHOADES MD May 27, 2018 13:22
[2018-05-27 20:58] VITALS: BP 143/67
[2018-05-27] MEDS: QUEtiapine FUM 100 MG TAB PO SCH (21:16)
[2018-05-28 07:01] VITALS: BP 120/62
[2018-05-28] MEDS: MULTIVITAMINS PO SCH (08:16)
[2018-05-28] MEDS: NICOTINE POLACRILEX 2 MG GUM PO PRN ×2 (08:16→17:42)
--- NOTE | 2018-05-28 12:50 | BHS Progress Note ---
[facility] - Subjective Progress Notes Subjective Patient continues to be cooperative on the unit, and denies any concerns today. Appetite and sleep good, patient reports good mood. Suicidal Ideation: None Homicidal Ideation: None [facility] - Objective Physical Exam Vital Signs Vital Signs Date Time Temp Pulse Resp B/P (MAP) Pulse Ox O2 Delivery O2 Flow Rate FiO2 05/28/18 07:01 96.8 87 120/62 (81) 94 Room Air 05/27/18 12:45 16 Muscle Strength and Tone: WNL Gait and Station: Steady [facility] Medications Reviewed: Side Effects, Benefits of Medication, Risks Allergies Reviewed: Yes Mental Status Exam General Appearance: Casual, Well Groomed, Good Eye Contact (Fair at times), Cooperative, Polite, Good Interaction; No Tearful, No Psychomotor Agitation, No Psychomotor Retardation, No Bizarre Mannerisms, No Tics Speech: Clear, Spontaneous, Normal Rate, Normal Rhythm, Normal Volume, Normal Tone, Other (Slight sing- song jen to speech) Mood: Euthymic Affect: Full and Appropriate, Calm; No Withdrawn, No Tearful, No Anxious, No Agitated Thought Process: Organized, Logical (mostly), Goal Directed; No Loose Associations, No Flight of Ideas Thought Content: No Suicidal Ideation, No Homicidal Ideation; Delusions (lessening paranoia. ), Auditory Halllucinations (Seems preoccupied at times, but minimal now), Ideas of Reference (concerning previous roomate); No Obsessions, No Compulsions Sensorium: Clear Cognition: Alert & Oriented-Person, Alert & Oriented-Place, Alert & Oriented- Time, Lalij-Zzlmfquy-Dxglgsaoh (mostly) Memory: Immediate, Recent, Remote Intelligence: Average Insight Judgment: Fair (much improvement while on medications) [facility] Assessment and Plan Grsb-gp-Oblz Encounter Date: May 28, 2018 Vlbh-hc-Tpkd Encounter Time: 10:30 [facility] Plan: Necessary Precautions, Individual/Group Therapy, Admin/Titrate Meds, Educate Patient Tobacco Medications: Not Appropriate Condition Multpiple Antipsychotics Used: No Problems: (1) Schizophrenia Status: Chronic (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 Last Edited By: Anay Rhoades on May 09, 2018 15:06 Status: Chronic (3) Mass in region of sella turcica present on magnetic resonance imaging Status: Chronic (4) Obstructive sleep apnea Optional Permanent Comment: untreated, patient today states he is open to wearing c-pap Last Edited By: Anay Rhoades on May 18, 2018 14:15 Status: Chronic Condition 1. continue treatment. 2. no medications changes. 3. await [facility]. Problem Qualifiers (1) Schizophrenia: Schizophrenia type: paranoid schizophrenia Qualified Codes: F20.0 - Paranoid schizophrenia ANAY RHOADES MD May 28, 2018 12:50
[2018-05-28 13:00] VITALS: BP 132/60
[2018-05-28] MEDS: HYPROMELLOSE 0.4% LUB 15ML BTL OD PRN (19:45)
[2018-05-28] MEDS: QUEtiapine FUM 100 MG TAB PO SCH (20:38)
[2018-05-28 21:45] VITALS: BP 128/58
[2018-05-29] MEDS: MULTIVITAMINS PO SCH (08:05)
[2018-05-29] MEDS: NICOTINE POLACRILEX 2 MG GUM PO PRN ×2 (08:07→13:58)
--- NOTE | 2018-05-29 10:56 | BHS Progress Note ---
[facility] - Subjective Progress Notes Subjective Patient Continues to do well on the unit, denies any complaints on the unit. Noted to be interacting well with staff, and other patients. Mood good, sleep okay. Suicidal Ideation: None Homicidal Ideation: None [facility] - Objective Physical Exam Vital Signs Vital Signs Date Time Temp Pulse Resp B/P (MAP) Pulse Ox O2 Delivery O2 Flow Rate FiO2 05/28/18 21:45 98.6 68 16 128/58 (81) 93 Room Air Muscle Strength and Tone: WNL Gait and Station: Steady [facility] Medications Reviewed: Side Effects, Benefits of Medication, Risks Allergies Reviewed: Yes Mental Status Exam General Appearance: Casual, Well Groomed, Good Eye Contact (Fair at times), Cooperative, Polite, Good Interaction; No Tearful, No Psychomotor Agitation, No Psychomotor Retardation, No Bizarre Mannerisms, No Tics Speech: Clear, Spontaneous, Normal Rate, Normal Rhythm, Normal Volume, Normal Tone, Other (Slight sing- song jen to speech) Mood: Euthymic Affect: Full and Appropriate, Calm; No Withdrawn, No Tearful, No Anxious, No Agitated Thought Process: Organized, Logical (mostly), Goal Directed; No Loose Associations, No Flight of Ideas Thought Content: No Suicidal Ideation, No Homicidal Ideation; Delusions (lessening paranoia. ), Auditory Halllucinations (Seems preoccupied at times, but minimal now), Ideas of Reference (concerning previous roomate); No Obsessions, No Compulsions Sensorium: Clear Cognition: Alert & Oriented-Person, Alert & Oriented-Place, Alert & Oriented- Time, Naqcv-Vsedzsrg-Bzlhwnmph (mostly) Memory: Immediate, Recent, Remote Intelligence: Average Insight Judgment: Fair (much improvement while on medications) [facility] Assessment and Plan Ncbe-ec-Pkcb Encounter Date: May 29, 2018 Wezk-og-Gvld Encounter Time: 11:00 [facility] Plan: Necessary Precautions, Individual/Group Therapy, Admin/Titrate Meds, Educate Patient Tobacco Medications: Not Appropriate Condition Multpiple Antipsychotics Used: No Problems: (1) Schizophrenia Status: Chronic (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 Last Edited By: Anay Rhoades on May 09, 2018 15:06 Status: Chronic (3) Mass in region of sella turcica present on magnetic resonance imaging Status: Chronic (4) Obstructive sleep apnea Optional Permanent Comment: untreated, patient today states he is open to wearing c-pap Last Edited By: Anay Rhoades on May 18, 2018 14:15 Status: Chronic Condition 1. continue treatment. 2. no medication changes. 3. await [facility]. Problem Qualifiers (1) Schizophrenia: Schizophrenia type: paranoid schizophrenia Qualified Codes: F20.0 - Paranoid schizophrenia ANAY RHOADES MD May 29, 2018 10:56
[2018-05-29 14:00] VITALS: BP 108/62
[2018-05-29] MEDS: HYPROMELLOSE 0.4% LUB 15ML BTL OD PRN (20:37)
[2018-05-29] MEDS: QUEtiapine FUM 100 MG TAB PO SCH (20:38)
[2018-05-30 06:55] VITALS: BP 109/79
[2018-05-30] MEDS: MULTIVITAMINS PO SCH (07:34)
[2018-05-30] MEDS: NICOTINE POLACRILEX 2 MG GUM PO PRN ×4 (07:34→19:09)
--- NOTE | 2018-05-30 11:11 | BHS Progress Note ---
[facility] - Subjective Progress Notes Subjective Patient continues to be very pleasant on the unit, exercising, appetite good, mood good, and patient denies any further thoughts that he was being persecuted by his son or a roommate. No other concerns, will continue treatment. Suicidal Ideation: None Homicidal Ideation: None [facility] - Objective Physical Exam Vital Signs Vital Signs Date Time Temp Pulse Resp B/P (MAP) Pulse Ox O2 Delivery O2 Flow Rate FiO2 05/30/18 06:55 98.7 90 109/79 (89) 92 Room Air 05/29/18 14:00 16 Muscle Strength and Tone: WNL Gait and Station: Steady [facility] Medications Reviewed: Side Effects, Benefits of Medication, Risks Allergies Reviewed: Yes Mental Status Exam General Appearance: Casual, Well Groomed, Good Eye Contact (Fair at times), Cooperative, Polite, Good Interaction; No Tearful, No Psychomotor Agitation, No Psychomotor Retardation, No Bizarre Mannerisms, No Tics Speech: Clear, Spontaneous, Normal Rate, Normal Rhythm, Normal Volume, Normal Tone, Other (Slight sing- song jen to speech) Mood: Euthymic Affect: Full and Appropriate, Calm; No Withdrawn, No Tearful, No Anxious, No Agitated Thought Process: Organized, Logical (mostly), Goal Directed; No Loose Associations, No Flight of Ideas Thought Content: No Suicidal Ideation, No Homicidal Ideation; Delusions (lessening paranoia. ), Auditory Halllucinations (Seems preoccupied at times, but minimal now), Ideas of Reference (concerning previous roomate); No Obsessions, No Compulsions Sensorium: Clear Cognition: Alert & Oriented-Person, Alert & Oriented-Place, Alert & Oriented- Time, Zpiyy-Jufsbccg-Dijivwjiw (mostly) Memory: Immediate, Recent, Remote Intelligence: Average Insight Judgment: Fair (much improvement while on medications) [facility] Assessment and Plan Yesy-ms-Jwjw Encounter Date: May 30, 2018 Shmh-fp-Dsfv Encounter Time: 11:00 [facility] Plan: Necessary Precautions, Individual/Group Therapy, Admin/Titrate Meds, Educate Patient Tobacco Medications: Not Appropriate Condition Multpiple Antipsychotics Used: No Problems: (1) Schizophrenia Status: Chronic (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 Last Edited By: Anay Rhoades on May 09, 2018 15:06 Status: Chronic (3) Mass in region of sella turcica present on magnetic resonance imaging Status: Chronic (4) Obstructive sleep apnea Optional Permanent Comment: untreated, patient today states he is open to wearing c-pap Last Edited By: Anay Rhoades on May 18, 2018 14:15 Status: Chronic Condition 1. continue treatment. 2. no medication changes. Problem Qualifiers (1) Schizophrenia: Schizophrenia type: paranoid schizophrenia Qualified Codes: F20.0 - Paranoid schizophrenia ANAY RHOADES MD May 30, 2018 11:11
[2018-05-30] MEDS: HYPROMELLOSE 0.4% LUB 15ML BTL OD PRN (12:30)
[2018-05-30 14:52] VITALS: BP 147/86
[2018-05-30] MEDS: ACETAMINOPHEN 325 MG TAB PO PRN (15:26)
[2018-05-30] MEDS: QUEtiapine FUM 100 MG TAB PO SCH (21:01)
[2018-05-31] MEDS: NICOTINE POLACRILEX 2 MG GUM PO PRN ×3 (08:24→20:11)
[2018-05-31] MEDS: MULTIVITAMINS PO SCH (08:25)
[2018-05-31] MEDS: HYPROMELLOSE 0.4% LUB 15ML BTL OD PRN ×2 (12:19→20:10)
[2018-05-31 12:54] VITALS: BP 109/78
--- NOTE | 2018-05-31 13:24 | BHS Progress Note ---
[facility] - Subjective Progress Notes Subjective Patient continues to do well on the unit, with no complaints today. Will continue same medications. Suicidal Ideation: None Homicidal Ideation: None [facility] - Objective Physical Exam Vital Signs Vital Signs Date Time Temp Pulse Resp B/P (MAP) Pulse Ox O2 Delivery O2 Flow Rate FiO2 05/31/18 12:54 99.5 95 109/78 (88) 94 Room Air 05/29/18 14:00 16 Muscle Strength and Tone: WNL Gait and Station: Steady [facility] Medications Reviewed: Side Effects, Benefits of Medication, Risks Allergies Reviewed: Yes Mental Status Exam General Appearance: Casual, Well Groomed, Good Eye Contact (Fair at times), Cooperative, Polite, Good Interaction; No Tearful, No Psychomotor Agitation, No Psychomotor Retardation, No Bizarre Mannerisms, No Tics Speech: Clear, Spontaneous, Normal Rate, Normal Rhythm, Normal Volume, Normal Tone, Other (Slight sing- song jen to speech) Mood: Euthymic Affect: Full and Appropriate, Calm; No Withdrawn, No Tearful, No Anxious, No Agitated Thought Process: Organized, Logical (mostly), Goal Directed; No Loose Associations, No Flight of Ideas Thought Content: No Suicidal Ideation, No Homicidal Ideation; Delusions (lessening paranoia. ), Auditory Halllucinations (Seems preoccupied at times, but minimal now), Ideas of Reference (concerning previous roomate); No Obsessions, No Compulsions Sensorium: Clear Cognition: Alert & Oriented-Person, Alert & Oriented-Place, Alert & Oriented- Time, Abgmx-Eaeaolse-Rsjkmbkqq (mostly) Memory: Immediate, Recent, Remote Intelligence: Average Insight Judgment: Fair (much improvement while on medications) [facility] Assessment and Plan Srsz-kf-Vqva Encounter Date: May 31, 2018 Baoy-yt-Umag Encounter Time: 13:00 [facility] Plan: Necessary Precautions, Individual/Group Therapy, Admin/Titrate Meds, Educate Patient Tobacco Medications: Not Appropriate Condition Multpiple Antipsychotics Used: No Problems: (1) Schizophrenia Status: Chronic (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 Last Edited By: Anay Rhoades on May 09, 2018 15:06 Status: Chronic (3) Mass in region of sella turcica present on magnetic resonance imaging Status: Chronic (4) Obstructive sleep apnea Optional Permanent Comment: untreated, patient today states he is open to wearing c-pap Last Edited By: Anay Rhoades on May 18, 2018 14:15 Status: Chronic Condition 1. continue treatment. 2. no medication changes. Problem Qualifiers (1) Schizophrenia: Schizophrenia type: paranoid schizophrenia Qualified Codes: F20.0 - Paranoid schizophrenia ANAY RHOADES MD May 31, 2018 13:24
[2018-05-31] MEDS: QUEtiapine FUM 100 MG TAB PO SCH (20:11)
[2018-06-01] MEDS: HYPROMELLOSE 0.4% LUB 15ML BTL OD PRN ×2 (07:47→20:54)
[2018-06-01] MEDS: MULTIVITAMINS PO SCH (08:13)
[2018-06-01] MEDS: NICOTINE POLACRILEX 2 MG GUM PO PRN ×3 (08:22→17:53)
--- NOTE | 2018-06-01 11:19 | BHS Progress Note ---
[facility] - Subjective Progress Notes Subjective Patient continues to interact well on the unit, and denies any concerns. Appetite and sleep good, will continue to encourage c-pap use. No medications changes. Patient demonstrating good sense of humor. Suicidal Ideation: None Homicidal Ideation: None [facility] - Objective Physical Exam Vital Signs Vital Signs Date Time Temp Pulse Resp B/P (MAP) Pulse Ox O2 Delivery O2 Flow Rate FiO2 05/31/18 12:54 99.5 95 109/78 (88) 94 Room Air 05/29/18 14:00 16 Muscle Strength and Tone: WNL Gait and Station: Steady [facility] Medications Reviewed: Side Effects, Benefits of Medication, Risks Allergies Reviewed: Yes Mental Status Exam General Appearance: Casual, Well Groomed, Good Eye Contact (Fair at times), Cooperative, Polite, Good Interaction; No Tearful, No Psychomotor Agitation, No Psychomotor Retardation, No Bizarre Mannerisms, No Tics Speech: Clear, Spontaneous, Normal Rate, Normal Rhythm, Normal Volume, Normal Tone, Other (Slight sing- song jen to speech) Mood: Euthymic Affect: Full and Appropriate, Calm; No Withdrawn, No Tearful, No Anxious, No Agitated Thought Process: Organized, Logical (mostly), Goal Directed; No Loose Associations, No Flight of Ideas Thought Content: No Suicidal Ideation, No Homicidal Ideation, No Delusions (denies), No Auditory Halllucinations, No Visual Hallucinations, No Thought Broadcasting, No Ideas of Reference, No Obsessions, No Compulsions Sensorium: Clear Cognition: Alert & Oriented-Person, Alert & Oriented-Place, Alert & Oriented- Time, Msptg-Fvgfserq-Yiipdmses (mostly) Memory: Immediate, Recent, Remote Intelligence: Average Insight Judgment: Fair (much improvement while on medications) [facility] Assessment and Plan Gvkm-qb-Bhzs Encounter Date: Jun 01, 2018 Jbna-di-Dfql Encounter Time: 11:00 [facility] Plan: Necessary Precautions, Individual/Group Therapy, Admin/Titrate Meds, Educate Patient Tobacco Medications: Not Appropriate Condition Multpiple Antipsychotics Used: No Problems: (1) Schizophrenia Status: Chronic (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 Last Edited By: Anay Rhoades on May 09, 2018 15:06 Status: Chronic (3) Mass in region of sella turcica present on magnetic resonance imaging Status: Chronic (4) Obstructive sleep apnea Optional Permanent Comment: untreated, patient today states he is open to wearing c-pap Last Edited By: Anay Rhoades on May 18, 2018 14:15 Status: Chronic Condition 1. continue treatment. 2. no medication changes. [facility] Problem Qualifiers (1) Schizophrenia: Schizophrenia type: paranoid schizophrenia Qualified Codes: F20.0 - Paranoid schizophrenia ANAY RHOADES MD Jun 01, 2018 11:19
[2018-06-01] MEDS: IBUPROFEN 600 MG TAB PO PRN (11:48)
[2018-06-01] MEDS: QUEtiapine FUM 100 MG TAB PO SCH (20:54)
[2018-06-02] MEDS: MULTIVITAMINS PO SCH (08:25)
[2018-06-02] MEDS: NICOTINE POLACRILEX 2 MG GUM PO PRN ×3 (08:26→19:16)
--- NOTE | 2018-06-02 08:46 | BHS Progress Note ---
[facility] - Subjective Progress Notes Subjective Patient interacting well this AM, looking for his book he had been reading. No other concerns today, will continue current treatment. Patient now denies any symptoms of psychiatric concern, and no evidence of significant concerns exist. Suicidal Ideation: None Homicidal Ideation: None [facility] - Objective Physical Exam Vital Signs Vital Signs Date Time Temp Pulse Resp B/P (MAP) Pulse Ox O2 Delivery O2 Flow Rate FiO2 05/31/18 12:54 99.5 95 109/78 (88) 94 Room Air 05/29/18 14:00 16 Muscle Strength and Tone: WNL Gait and Station: Steady [facility] Medications Reviewed: Side Effects, Benefits of Medication, Risks Allergies Reviewed: Yes Mental Status Exam General Appearance: Casual, Well Groomed, Good Eye Contact (Fair at times), Cooperative, Polite, Good Interaction; No Tearful, No Psychomotor Agitation, No Psychomotor Retardation, No Bizarre Mannerisms, No Tics Speech: Clear, Spontaneous, Normal Rate, Normal Rhythm, Normal Volume, Normal Tone, Other (Slight sing- song jen to speech) Mood: Euthymic Affect: Full and Appropriate, Calm; No Withdrawn, No Tearful, No Anxious, No Agitated Thought Process: Organized, Logical (mostly), Goal Directed; No Loose Associations, No Flight of Ideas Thought Content: No Suicidal Ideation, No Homicidal Ideation, No Delusions (denies), No Auditory Halllucinations, No Visual Hallucinations, No Thought Broadcasting, No Ideas of Reference, No Obsessions, No Compulsions Sensorium: Clear Cognition: Alert & Oriented-Person, Alert & Oriented-Place, Alert & Oriented- Time, Dtmuj-Nxkqtyla-Lkghoontr (mostly) Memory: Immediate, Recent, Remote Intelligence: Average Insight Judgment: Fair (much improvement while on medications) [facility] Assessment and Plan Tbne-qk-Haph Encounter Date: Jun 02, 2018 Zego-tu-Frtu Encounter Time: 09:00 [facility] Plan: Necessary Precautions, Individual/Group Therapy, Admin/Titrate Meds, Educate Patient Tobacco Medications: Not Appropriate Condition Multpiple Antipsychotics Used: No Problems: (1) Schizophrenia Status: Chronic (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 Last Edited By: Anay Rhoades on May 09, 2018 15:06 Status: Chronic (3) Mass in region of sella turcica present on magnetic resonance imaging Status: Chronic (4) Obstructive sleep apnea Optional Permanent Comment: untreated, patient today states he is open to wearing c-pap Last Edited By: Anay Rhoades on May 18, 2018 14:15 Status: Chronic Condition 1. continue treatment. [facility] 3. patient with history of multiple previous outpatient failures will benefit from more time to be adjusted to medications. Problem Qualifiers (1) Schizophrenia: Schizophrenia type: paranoid schizophrenia Qualified Codes: F20.0 - Paranoid schizophrenia ANAY RHOADES MD Jun 02, 2018 08:46
[2018-06-02 12:35] VITALS: BP 132/67
[2018-06-02] MEDS: HYPROMELLOSE 0.4% LUB 15ML BTL OD PRN ×2 (13:41→19:16)
[2018-06-02] MEDS: QUEtiapine FUM 100 MG TAB PO SCH (21:00)
[2018-06-03] MEDS: MULTIVITAMINS PO SCH (08:14)
[2018-06-03] MEDS: NICOTINE POLACRILEX 2 MG GUM PO PRN ×3 (08:16→18:31)
[2018-06-03 08:30] VITALS: BP 152/82
--- NOTE | 2018-06-03 11:53 | BHS Progress Note ---
[facility] - Subjective Progress Notes Subjective Patient continues to do very well on the unit, able to participate in escorted walks off the unit, appetite and sleep good. Mood good, no symptoms of psychosis present. Will continue treatment. Suicidal Ideation: None Homicidal Ideation: None [facility] - Objective Physical Exam Vital Signs Vital Signs Date Time Temp Pulse Resp B/P (MAP) Pulse Ox O2 Delivery O2 Flow Rate FiO2 06/02/18 12:35 97.7 69 132/67 (88) 95 Room Air Vital Signs Date Time Temp Pulse Resp B/P (MAP) Pulse Ox O2 Delivery O2 Flow Rate FiO2 06/02/18 12:35 97.7 69 132/67 (88) 95 Room Air Muscle Strength and Tone: WNL Gait and Station: Steady [facility] Medications Reviewed: Side Effects, Benefits of Medication, Risks Allergies Reviewed: Yes Mental Status Exam General Appearance: Casual, Well Groomed, Good Eye Contact (Fair at times), Cooperative, Polite, Good Interaction; No Tearful, No Psychomotor Agitation, No Psychomotor Retardation, No Bizarre Mannerisms, No Tics Speech: Clear, Spontaneous, Normal Rate, Normal Rhythm, Normal Volume, Normal Tone, Other (Slight sing- song jen to speech) Mood: Euthymic Affect: Full and Appropriate, Calm; No Withdrawn, No Tearful, No Anxious, No Agitated Thought Process: Organized, Logical (mostly), Goal Directed; No Loose Associations, No Flight of Ideas Thought Content: No Suicidal Ideation, No Homicidal Ideation, No Delusions (denies), No Auditory Halllucinations, No Visual Hallucinations, No Thought Broadcasting, No Ideas of Reference, No Obsessions, No Compulsions Sensorium: Clear Cognition: Alert & Oriented-Person, Alert & Oriented-Place, Alert & Oriented- Time, Vfdog-Phuoffjp-Pwbgidnax (mostly) Memory: Immediate, Recent, Remote Intelligence: Average Insight Judgment: Fair (much improvement while on medications) [facility] Assessment and Plan Zrhh-tz-Nmon Encounter Date: Jun 03, 2018 Oqll-gb-Qfzw Encounter Time: 11:30 [facility] Plan: Necessary Precautions, Individual/Group Therapy, Admin/Titrate Meds, Educate Patient Tobacco Medications: Not Appropriate Condition Multpiple Antipsychotics Used: No Problems: (1) Schizophrenia Status: Chronic (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 Last Edited By: Anay Rhoades on May 09, 2018 15:06 Status: Chronic (3) Mass in region of sella turcica present on magnetic resonance imaging Status: Chronic (4) Obstructive sleep apnea Optional Permanent Comment: untreated, patient today states he is open to wearing c-pap Last Edited By: Anay Rhoades on May 18, 2018 14:15 Status: Chronic Condition 1. continue treatment. 2. no medication changes. Problem Qualifiers (1) Schizophrenia: Schizophrenia type: paranoid schizophrenia Qualified Codes: F20.0 - Paranoid schizophrenia ANAY RHOADES MD Jun 03, 2018 11:53
[2018-06-03 12:55] VITALS: BP 122/68
[2018-06-03] MEDS: HYPROMELLOSE 0.4% LUB 15ML BTL OD PRN ×2 (15:19→18:31)
[2018-06-03] MEDS: QUEtiapine FUM 100 MG TAB PO SCH (20:39)
[2018-06-04] MEDS: NICOTINE POLACRILEX 2 MG GUM PO PRN ×3 (07:51→17:43)
[2018-06-04] MEDS: HYPROMELLOSE 0.4% LUB 15ML BTL OD PRN (07:51)
[2018-06-04] MEDS: MULTIVITAMINS PO SCH (07:51)
--- NOTE | 2018-06-04 08:11 | BHS Progress Note ---
[facility] - Subjective Progress Notes Subjective "I got my disability all taken care of. I'm feeling really good. I've been exercising every day." Denies depression, anxiety or anger Denies mood swings, denies paranoia, [facility] Reports sleeping "really well, they are working on getting my CPAP fixed.". Suicidal Ideation: None Homicidal Ideation: None [facility] - Objective Physical Exam Vital Signs Vital Signs Date Time Temp Pulse Resp B/P (MAP) Pulse Ox O2 Delivery O2 Flow Rate FiO2 06/03/18 12:55 98.9 88 16 122/68 (86) 92 Room Air Muscle Strength and Tone: WNL Gait and Station: Steady [facility] Medications Reviewed: Side Effects, Benefits of Medication, Risks Allergies Reviewed: Yes Mental Status Exam General Appearance: Casual, Well Groomed, Good Eye Contact (Fair at times), Cooperative, Polite, Good Interaction; No Tearful, No Psychomotor Agitation, No Psychomotor Retardation, No Bizarre Mannerisms, No Tics Speech: Clear, Spontaneous, Normal Rate, Normal Rhythm, Normal Volume, Normal Tone, Other (Slight sing- song jen to speech) Mood: Euthymic Affect: Full and Appropriate, Calm; No Withdrawn, No Tearful, No Anxious, No Agitated Thought Process: Organized, Logical (mostly), Goal Directed; No Loose Associations, No Flight of Ideas Thought Content: No Suicidal Ideation, No Homicidal Ideation, No Delusions (denies), No Auditory Halllucinations, No Visual Hallucinations, No Thought Broadcasting, No Ideas of Reference, No Obsessions, No Compulsions Sensorium: Clear Cognition: Alert & Oriented-Person, Alert & Oriented-Place, Alert & Oriented- Time, Qaxmd-Ngdhhjil-Yduwwgfft (mostly) Memory: Immediate, Recent, Remote Intelligence: Average Insight Judgment: Fair (much improvement while on medications) Additional Findings/Notes: Medications (Trade) Dose Ordered Sig/Reema Route PRN Reason Start Time Stop Time Status Last Admin Dose Admin Acetaminophen (Tylenol(*)325 Mg Tab (Or Equiv)) 650 mg Q4H PRN PO HEADACHE 05/06/18 22:40 06/01/18 11:23 DC 05/30/18 15:26 Hypromellose (Natural Balance Tears 0.4% 15 ml Btl) 1-2 DROPS TID PRN OD DRY EYES 05/18/18 09:25 06/17/18 09:24 06/04/18 07:51 Ibuprofen (Motrin (*) 600 Mg Tab (Or Equiv)) 600 mg Q6H PRN PO PAIN 06/01/18 11:15 07/01/18 11:14 06/01/18 11:48 Multivitamins (Thera-M Enhanced Tab (Or Equiv)) 1 each QDAY PO 05/07/18 09:00 06/06/18 08:59 06/04/18 07:51 Nicotine Polacrilex (Nicorette 2 Mg Gum (Or Equiv)) 2 mg Q1-2H PRN PO NICOTINE REPLACEMENT 05/07/18 10:40 06/06/18 10:39 06/04/18 07:51 Quetiapine Fumarate (SEROquel 100 MG TAB (OR EQUIV)) 500 mg QHS PO 05/16/18 21:00 06/15/18 20:59 06/03/18 20:39 S Assessment and Plan Ijvl-ur-Locv Encounter Date: Jun 04, 2018 Xsse-ch-Ldlg Encounter Time: 08:00 [facility] Plan: Necessary Precautions, Individual/Group Therapy, Admin/Titrate Meds, Educate Patient Tobacco Medications: Not Appropriate Condition Multpiple Antipsychotics Used: No Problems: (1) Schizophrenia Status: Chronic Condition Continue current medications, awaiting [facility] transfer Maintain precautions Problem Qualifiers (1) Schizophrenia: Schizophrenia type: paranoid schizophrenia Qualified Codes: F20.0 - Paranoid schizophrenia EMMA GIANG NP Jun 04, 2018 08:10
[2018-06-04 14:45] VITALS: BP 124/72
[2018-06-04] MEDS: MAG HYD/AL HYD/SIMETH 30ML UDC PO PRN (17:51)
[2018-06-04] MEDS: QUEtiapine FUM 100 MG TAB PO SCH (20:43)
[2018-06-05] MEDS: NICOTINE POLACRILEX 2 MG GUM PO PRN ×2 (07:26→17:41)
[2018-06-05] MEDS: HYPROMELLOSE 0.4% LUB 15ML BTL OD PRN ×2 (07:26→17:41)
[2018-06-05] MEDS: MULTIVITAMINS PO SCH (07:26)
--- NOTE | 2018-06-05 09:12 | BHS Progress Note ---
BHS - Subjective Progress Notes Subjective "I've been feeling good physically, I had a little depression and anxiety but I got ahold of my son" Sleep sufficient, denies paranoia, AVH Denies racing thoughts or mood swings Suicidal Ideation: None Homicidal Ideation: None [facility] - Objective Physical Exam Vital Signs Vital Signs Date Time Temp Pulse Resp B/P (MAP) Pulse Ox O2 Delivery O2 Flow Rate FiO2 06/04/18 14:45 98.5 77 16 124/72 (89) 95 Room Air Deferred Medications (Trade) Dose Ordered Sig/Reema Route PRN Reason Start Time Stop Time Status Last Admin Dose Admin Acetaminophen (Tylenol(*)325 Mg Tab (Or Equiv)) 650 mg Q4H PRN PO HEADACHE 05/06/18 22:40 06/01/18 11:23 DC 05/30/18 15:26 Al Hydrox/Mg Hydrox/Simethicone (Maalox(*) 30 ml Udcup (Or Equiv)) 30 ml Q4H PRN PO DYSPEPSIA 05/06/18 22:40 06/05/18 22:39 06/04/18 17:51 Hypromellose (Natural Balance Tears 0.4% 15 ml Btl) 1-2 DROPS TID PRN OD DRY EYES 05/18/18 09:25 06/17/18 09:24 06/05/18 07:26 Ibuprofen (Motrin (*) 600 Mg Tab (Or Equiv)) 600 mg Q6H PRN PO PAIN 06/01/18 11:15 07/01/18 11:14 06/01/18 11:48 Multivitamins (Thera-M Enhanced Tab (Or Equiv)) 1 each QDAY PO 05/07/18 09:00 06/06/18 08:59 06/05/18 07:26 Nicotine Polacrilex (Nicorette 2 Mg Gum (Or Equiv)) 2 mg Q1-2H PRN PO NICOTINE REPLACEMENT 05/07/18 10:40 06/06/18 10:39 06/05/18 07:26 Quetiapine Fumarate (SEROquel 100 MG TAB (OR EQUIV)) 500 mg QHS PO 05/16/18 21:00 06/15/18 20:59 06/04/18 20:43 Muscle Strength and Tone: WNL Gait and Station: Steady [facility] Medications Reviewed: Side Effects, Benefits of Medication, Risks Allergies Reviewed: Yes Mental Status Exam General Appearance: Casual, Well Groomed, Good Eye Contact (Fair at times), Cooperative, Polite, Good Interaction; No Tearful, No Psychomotor Agitation, No Psychomotor Retardation, No Bizarre Mannerisms, No Tics Speech: Clear, Spontaneous, Normal Rate, Normal Rhythm, Normal Volume, Normal Tone, Other (Slight sing- song jen to speech) Mood: Euthymic Affect: Full and Appropriate, Calm; No Withdrawn, No Tearful, No Anxious, No Agitated Thought Process: Organized, Logical (mostly), Goal Directed; No Loose Associations, No Flight of Ideas Thought Content: No Suicidal Ideation, No Homicidal Ideation, No Delusions (denies), No Auditory Halllucinations, No Visual Hallucinations, No Thought Broadcasting, No Ideas of Reference, No Obsessions, No Compulsions Sensorium: Clear Cognition: Alert & Oriented-Person, Alert & Oriented-Place, Alert & Oriented- Time, Dfjok-Isulzsqf-Vxbhjgedv (mostly) Memory: Immediate, Recent, Remote Intelligence: Average Insight Judgment: Fair (much improvement while on medications) [facility] Assessment and Plan Gtbu-mn-Yesr Encounter Date: Jun 05, 2018 Ldkh-ai-Jiox Encounter Time: 09:10 [facility] Plan: Necessary Precautions, Individual/Group Therapy, Admin/Titrate Meds, Educate Patient Tobacco Medications: Not Appropriate Condition Multpiple Antipsychotics Used: No Problems: (1) Schizophrenia Status: Chronic Condition Continue current medications and treatment Awaiting [facility] transfer Encourage exercise Problem Qualifiers (1) Schizophrenia: Schizophrenia type: paranoid schizophrenia Qualified Codes: F20.0 - Paranoid schizophrenia EMMA GIANG NP Jun 05, 2018 09:12
[2018-06-05 12:30] VITALS: BP 132/76
[2018-06-05] MEDS: QUEtiapine FUM 100 MG TAB PO SCH (20:51)
[2018-06-06] MEDS: HYPROMELLOSE 0.4% LUB 15ML BTL OD PRN ×3 (07:33→17:45)
[2018-06-06] MEDS: MULTIVITAMINS PO SCH (07:33)
[2018-06-06] MEDS: NICOTINE POLACRILEX 2 MG GUM PO PRN ×3 (07:33→17:45)
--- NOTE | 2018-06-06 09:09 | BHS Progress Note ---
[facility] - Subjective Progress Notes Subjective Patient continues to do very well on the unit. No complaints today, and denies any psychiatric symptoms. Patient continues to take Seroquel at night with no difficulty. Patient open to resuming wearing c-pap machine, personal machine in need of a part, and will look into acquiring part. Notably patient is considered baseline at this point while on Seroquel in absence of c-pap use. Appetite and sleep reported as good. Suicidal Ideation: None Homicidal Ideation: None [facility] - Objective Physical Exam Vital Signs Vital Signs Date Time Temp Pulse Resp B/P (MAP) Pulse Ox O2 Delivery O2 Flow Rate FiO2 06/05/18 12:30 99.2 76 16 132/76 (94) 93 Room Air Muscle Strength and Tone: WNL Gait and Station: Steady [facility] Medications Reviewed: Side Effects, Benefits of Medication, Risks Allergies Reviewed: Yes Mental Status Exam General Appearance: Casual, Well Groomed, Good Eye Contact (Fair at times), Cooperative, Polite, Good Interaction; No Tearful, No Psychomotor Agitation, No Psychomotor Retardation, No Bizarre Mannerisms, No Tics Speech: Clear, Spontaneous, Normal Rate, Normal Rhythm, Normal Volume, Normal Tone, Other (Slight sing- song jen to speech) Mood: Euthymic Affect: Full and Appropriate, Calm; No Withdrawn, No Tearful, No Anxious, No Agitated Thought Process: Organized, Logical (mostly), Goal Directed; No Loose Associations, No Flight of Ideas Thought Content: No Suicidal Ideation, No Homicidal Ideation, No Delusions (denies, no evidence of paranoia), No Auditory Halllucinations, No Visual Hallucinations, No Thought Broadcasting, No Ideas of Reference, No Obsessions, No Compulsions Sensorium: Clear Cognition: Alert & Oriented-Person, Alert & Oriented-Place, Alert & Oriented- Time, Dzutp-Ebantqbv-Urrnjmcgn (mostly) Memory: Immediate, Recent, Remote Intelligence: Average Insight Judgment: Fair (much improvement while on medications) [facility] Assessment and Plan Xafz-bc-Kdcn Encounter Date: Jun 06, 2018 Riiv-py-Dnqn Encounter Time: 08:50 [facility] Plan: Necessary Precautions, Individual/Group Therapy, Admin/Titrate Meds, Educate Patient Tobacco Medications: Not Appropriate Condition Multpiple Antipsychotics Used: No Problems: (1) Schizophrenia Status: Chronic (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 Last Edited By: Anay Rhoades on May 09, 2018 15:06 Status: Chronic (3) Mass in region of sella turcica present on magnetic resonance imaging Status: Chronic (4) Obstructive sleep apnea Optional Permanent Comment: untreated, patient today states he is open to wearing c-pap Last Edited By: Anay Rhoades on May 18, 2018 14:15 Status: Chronic Condition 1. continue treatment. 2. await [facility]. 3. no medication changes. Problem Qualifiers (1) Schizophrenia: Schizophrenia type: paranoid schizophrenia Qualified Codes: F20.0 - Paranoid schizophrenia ANAY RHOADES MD Jun 06, 2018 09:09
[2018-06-06 19:34] VITALS: BP 128/82
[2018-06-06] MEDS: QUEtiapine FUM 100 MG TAB PO SCH (21:25)
[2018-06-07] MEDS: NICOTINE POLACRILEX 2 MG GUM PO PRN ×3 (07:36→18:08)
[2018-06-07] MEDS: MULTIVITAMINS PO SCH (07:57)
--- NOTE | 2018-06-07 09:42 | BHS Progress Note ---
[facility] - Subjective Progress Notes Subjective Patient continues to do very well on the unit, patient has had numerous outpatient failures where he goes off medications and quickly has a return of psychosis. Patient will benefit from more time to become accustomed to taking medications on a consistent basis. At this time will continue to await [facility] hospital placement. No other concerns today. Will continue same medications, and continue treatment. Suicidal Ideation: None Homicidal Ideation: None [facility] - Objective Physical Exam Vital Signs Vital Signs Date Time Temp Pulse Resp B/P (MAP) Pulse Ox O2 Delivery O2 Flow Rate FiO2 06/06/18 19:34 98.7 74 16 128/82 (97) 92 Room Air Muscle Strength and Tone: WNL Gait and Station: Steady [facility] Medications Reviewed: Side Effects, Benefits of Medication, Risks Allergies Reviewed: Yes Mental Status Exam General Appearance: Casual, Well Groomed, Good Eye Contact (Fair at times), Cooperative, Polite, Good Interaction; No Tearful, No Psychomotor Agitation, No Psychomotor Retardation, No Bizarre Mannerisms, No Tics Speech: Clear, Spontaneous, Normal Rate, Normal Rhythm, Normal Volume, Normal Tone, Other (Slight sing- song jen to speech) Mood: Euthymic Affect: Full and Appropriate, Calm; No Withdrawn, No Tearful, No Anxious, No Agitated Thought Process: Organized, Logical (mostly), Goal Directed; No Loose Associations, No Flight of Ideas Thought Content: No Suicidal Ideation, No Homicidal Ideation, No Delusions (denies, no evidence of paranoia), No Auditory Halllucinations, No Visual Hallucinations, No Thought Broadcasting, No Ideas of Reference, No Obsessions, No Compulsions Sensorium: Clear Cognition: Alert & Oriented-Person, Alert & Oriented-Place, Alert & Oriented-T anthony, Igjco-Luslnfav-Eqorlsxbd Memory: Immediate, Recent, Remote Intelligence: Average Insight Judgment: Fair (much improvement while on medications) [facility] Assessment and Plan Klrp-or-Uiyd Encounter Date: Jun 07, 2018 Vdhw-xu-Dqeo Encounter Time: 09:00 [facility] Plan: Necessary Precautions, Individual/Group Therapy, Admin/Titrate Meds, Educate Patient Tobacco Medications: Not Appropriate Condition Multpiple Antipsychotics Used: No Problems: (1) Schizophrenia Status: Chronic (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 Last Edited By: Anay Rhoades on May 09, 2018 15:06 Status: Chronic (3) Mass in region of sella turcica present on magnetic resonance imaging Status: Chronic (4) Obstructive sleep apnea Optional Permanent Comment: untreated, patient today states he is open to wearing c-pap Last Edited By: Anay Rhoades on May 18, 2018 14:15 Status: Chronic Condition 1. continue treatment. [facility] Problem Qualifiers (1) Schizophrenia: Schizophrenia type: paranoid schizophrenia Qualified Codes: F20.0 - Paranoid schizophrenia ANAY RHOADES MD Jun 07, 2018 09:42
[2018-06-07] MEDS: HYPROMELLOSE 0.4% LUB 15ML BTL OD PRN ×2 (13:03→18:08)
[2018-06-07] MEDS: QUEtiapine FUM 100 MG TAB PO SCH (20:27)
[2018-06-07] MEDS: MAG HYD/AL HYD/SIMETH 30ML UDC PO PRN (20:31)
[2018-06-07 21:44] VITALS: BP 137/84
[2018-06-08] MEDS: NICOTINE POLACRILEX 2 MG GUM PO PRN ×3 (08:09→18:26)
[2018-06-08] MEDS: MULTIVITAMINS PO SCH (08:09)
[2018-06-08] MEDS: HYPROMELLOSE 0.4% LUB 15ML BTL OD PRN ×3 (08:09→19:50)
[2018-06-08] MEDS: PANTOPRAZOLE SOD 40 MG TABEC PO SCH (10:52)
[2018-06-08] MEDS: DOCUSATE SODIUM 100 MG CAP PO SCH ×2 (10:52→19:50)
--- NOTE | 2018-06-08 11:50 | BHS Progress Note ---
[facility] - Subjective Progress Notes Subjective Patient continues to do very well on the unit. Wearing c-pap machine. Appetite good, no other concerns. Suicidal Ideation: None Homicidal Ideation: None [facility] - Objective Physical Exam Vital Signs Vital Signs Date Time Temp Pulse Resp B/P (MAP) Pulse Ox O2 Delivery O2 Flow Rate FiO2 06/07/18 21:44 98.7 73 137/84 (101) 93 Room Air 06/06/18 19:34 16 Muscle Strength and Tone: WNL Gait and Station: Steady [facility] Medications Reviewed: Side Effects, Benefits of Medication, Risks Allergies Reviewed: Yes Mental Status Exam General Appearance: Casual, Well Groomed, Good Eye Contact (Fair at times), Cooperative, Polite, Good Interaction; No Tearful, No Psychomotor Agitation, No Psychomotor Retardation, No Bizarre Mannerisms, No Tics Speech: Clear, Spontaneous, Normal Rate, Normal Rhythm, Normal Volume, Normal Tone, Other (Slight sing- song jen to speech) Mood: Euthymic Affect: Full and Appropriate, Calm; No Withdrawn, No Tearful, No Anxious, No Agitated Thought Process: Organized, Logical (mostly), Goal Directed; No Loose Associations, No Flight of Ideas Thought Content: No Suicidal Ideation, No Homicidal Ideation, No Delusions (denies, no evidence of paranoia), No Auditory Halllucinations, No Visual H allucinations, No Thought Broadcasting, No Ideas of Reference, No Obsessions, No Compulsions Sensorium: Clear Cognition: Alert & Oriented-Person, Alert & Oriented-Place, Alert & Oriented- Time, Qlyim-Mvndbayp-Riprntnwv Memory: Immediate, Recent, Remote Intelligence: Average Insight Judgment: Fair (much improvement while on medications) [facility] Assessment and Plan Iddu-jd-Jnmf Encounter Date: Jun 08, 2018 Znpm-vu-Ixjx Encounter Time: 11:00 [facility] Plan: Necessary Precautions, Individual/Group Therapy, Admin/Titrate Meds, Educate Patient Tobacco Medications: Not Appropriate Condition Multpiple Antipsychotics Used: No Problems: (1) Schizophrenia Status: Chronic (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 Last Edited By: Anay Rhoades on May 09, 2018 15:06 Status: Chronic (3) Mass in region of sella turcica present on magnetic resonance imaging Status: Chronic (4) Obstructive sleep apnea Optional Permanent Comment: untreated, patient today states he is open to wearing c-pap Last Edited By: Anay Rhoades on May 18, 2018 14:15 Status: Chronic Condition 1. continue treatment. 2. no medication changes. Problem Qualifiers (1) Schizophrenia: Schizophrenia type: paranoid schizophrenia Qualified Codes: F20.0 - Paranoid schizophrenia ANAY RHOADES MD Jun 08, 2018 11:50
[2018-06-08] MEDS: QUEtiapine FUM 100 MG TAB PO SCH (19:50)
[2018-06-08 21:11] VITALS: BP 131/83
[2018-06-09] MEDS: HYPROMELLOSE 0.4% LUB 15ML BTL OD PRN (07:36)
[2018-06-09] MEDS: NICOTINE POLACRILEX 2 MG GUM PO PRN ×2 (07:36→18:25)
[2018-06-09] MEDS: DOCUSATE SODIUM 100 MG CAP PO SCH ×2 (08:19→20:33)
[2018-06-09] MEDS: PANTOPRAZOLE SOD 40 MG TABEC PO SCH (08:19)
[2018-06-09] MEDS: MULTIVITAMINS PO SCH (08:20)
--- NOTE | 2018-06-09 12:53 | BHS Progress Note ---
[facility] - Subjective Progress Notes Subjective Patient continues to do well, interacting well with family who are visiting today, appetite, and sleep good, wearing c-pap machine. Denies any other concerns. Suicidal Ideation: None Homicidal Ideation: None [facility] - Objective Physical Exam Vital Signs Vital Signs Date Time Temp Pulse Resp B/P (MAP) Pulse Ox O2 Delivery O2 Flow Rate FiO2 06/08/18 21:11 99.0 70 131/83 (99) 94 Room Air 06/06/18 19:34 16 Muscle Strength and Tone: WNL Gait and Station: Steady [facility] Medications Reviewed: Side Effects, Benefits of Medication, Risks Allergies Reviewed: Yes Mental Status Exam General Appearance: Casual, Well Groomed, Good Eye Contact (Fair at times), Cooperative, Polite, Good Interaction; No Tearful, No Psychomotor Agitation, No Psychomotor Retardation, No Bizarre Mannerisms, No Tics Speech: Clear, Spontaneous, Normal Rate, Normal Rhythm, Normal Volume, Normal Tone, Other (Slight sing- song jen to speech) Mood: Euthymic Affect: Full and Appropriate, Calm; No Withdrawn, No Tearful, No Anxious, No Agitated Thought Process: Organized, Logical (mostly), Goal Directed; No Loose Associations, No Flight of Ideas Thought Content: No Suicidal Ideation, No Homicidal Ideation, No Delusions (denies, no evidence of paranoia), No Auditory Halllucinations, No Visual Hallucinations, No Thought Broadcasting, No Ideas of Reference, No Obsessions, No Compulsions Sensorium: Clear Cognition: Alert & Oriented-Person, Alert & Oriented-Place, Alert & Oriented- Time, Gywlv-Xaexhrrf-Noqbsothj Memory: Immediate, Recent, Remote Intelligence: Average Insight Judgment: Fair (much improvement while on medications) [facility] Assessment and Plan Qwem-be-Ygcj Encounter Date: Jun 09, 2018 Claz-dl-Dvmk Encounter Time: 10:00 [facility] Plan: Necessary Precautions, Individual/Group Therapy, Admin/Titrate Meds, Educate Patient Tobacco Medications: Not Appropriate Condition Multpiple Antipsychotics Used: No Problems: (1) Schizophrenia Status: Chronic (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 Last Edited By: Anay Rhoades on May 09, 2018 15:06 Status: Chronic (3) Mass in region of sella turcica present on magnetic resonance imaging Status: Chronic (4) Obstructive sleep apnea Optional Permanent Comment: Last Edited By: Anay Rhoades on Jun 09, 2018 12:52 Status: Chronic Condition 1. continue treatment. [facility] Problem Qualifiers (1) Schizophrenia: Schizophrenia type: paranoid schizophrenia Qualified Codes: F20.0 - Paranoid schizophrenia ANAY RHOADES MD Jun 09, 2018 12:53
[2018-06-09 19:45] VITALS: BP 126/80
[2018-06-09] MEDS: QUEtiapine FUM 100 MG TAB PO SCH (20:33)
[2018-06-10] MEDS: DOCUSATE SODIUM 100 MG CAP PO SCH ×2 (08:02→21:08)
[2018-06-10] MEDS: MULTIVITAMINS PO SCH (08:02)
[2018-06-10] MEDS: PANTOPRAZOLE SOD 40 MG TABEC PO SCH (08:02)
[2018-06-10] MEDS: NICOTINE POLACRILEX 2 MG GUM PO PRN ×3 (08:37→17:43)
[2018-06-10] MEDS: HYPROMELLOSE 0.4% LUB 15ML BTL OD PRN (08:37)
--- NOTE | 2018-06-10 09:11 | BHS Progress Note ---
[facility] - Subjective Progress Notes Subjective Patient continues to do very well, and is taking an active role in his treatment. Patient noted to be exercising in his room this AM. Mood good, and patient happy to report good visits with his children yesterday, sleep and appetite intact, no other concerns. Will continue with [facility] hospital transfer in order to give [place] more time to [place] accustomed to staying on medications, and to further explore outpatient living arrangements. Suicidal Ideation: None Homicidal Ideation: None [facility] - Objective Physical Exam Vital Signs Vital Signs Date Time Temp Pulse Resp B/P (MAP) Pulse Ox O2 Delivery O2 Flow Rate FiO2 06/09/18 19:45 99.1 67 20 126/80 (95) 93 Room Air Muscle Strength and Tone: WNL Gait and Station: Steady [facility] Medications Reviewed: Side Effects, Benefits of Medication, Risks Allergies Reviewed: Yes Mental Status Exam General Appearance: Casual, Well Groomed, Good Eye Contact (Fair at times), Cooperative, Polite, Good Interaction; No Tearful, No Psychomotor Agitation, No Psychomotor Retardation, No Bizarre Mannerisms, No Tics Speech: Clear, Spontaneous, Normal Rate, Normal Rhythm, Normal Volume, Normal Tone, Other (Slight sing- song jen to speech) Mood: Euthymic Affect: Full and Appropriate, Calm; No Withdrawn, No Tearful, No Anxious, No Agitated Thought Process: Organized, Logical (mostly), Goal Directed; No Loose Associations, No Flight of Ideas Thought Content: No Suicidal Ideation, No Homicidal Ideation, No Delusions (denies, no evidence of paranoia), No Auditory Halllucinations, No Visual Hallucinations, No Thought Broadcasting, No Ideas of Reference, No Obsessions, No Compulsions Sensorium: Clear Cognition: Alert & Oriented-Person, Alert & Oriented-Place, Alert & Oriented- Time, Kbjiz-Wmqufakr-Uyevbgnpz Memory: Immediate, Recent, Remote Intelligence: Average Insight Judgment: Fair (much improvement while on medications) [facility] Assessment and Plan Tuky-zi-Fsol Encounter Date: Jun 10, 2018 Izye-zj-Hxfx Encounter Time: 10:00 [facility] Plan: Necessary Precautions, Individual/Group Therapy, Admin/Titrate Meds, Educate Patient Tobacco Medications: Not Appropriate Condition Multpiple Antipsychotics Used: No Problems: (1) Schizophrenia Status: Chronic (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 Last Edited By: Anay Rhoades on May 09, 2018 15:06 Status: Chronic (3) Mass in region of sella turcica present on magnetic resonance imaging Status: Chronic (4) Obstructive sleep apnea Status: Chronic Condition 1. continue treatment. 2. no medication changes. 3. [facility]. Problem Qualifiers (1) Schizophrenia: Schizophrenia type: paranoid schizophrenia Qualified Codes: F20.0 - Paranoid schizophrenia ANAY RHOADES MD Jun 10, 2018 09:11
[2018-06-10] MEDS: IBUPROFEN 600 MG TAB PO PRN (13:34)
[2018-06-10 13:35] VITALS: BP 132/72
[2018-06-10] MEDS: QUEtiapine FUM 100 MG TAB PO SCH (21:08)
[2018-06-11] MEDS: DOCUSATE SODIUM 100 MG CAP PO SCH ×2 (08:19→20:43)
[2018-06-11] MEDS: MULTIVITAMINS PO SCH (08:19)
[2018-06-11] MEDS: HYPROMELLOSE 0.4% LUB 15ML BTL OD PRN ×3 (08:19→18:22)
[2018-06-11] MEDS: PANTOPRAZOLE SOD 40 MG TABEC PO SCH (08:19)
[2018-06-11] MEDS: NICOTINE POLACRILEX 2 MG GUM PO PRN ×3 (08:19→18:22)
--- NOTE | 2018-06-11 08:46 | BHS Progress Note ---
[facility] - Subjective Progress Notes Subjective "The CPAP is working good. Since I've been using it I feel a lot better in the morning. I was a little depressed but my sons came up for Thanksgiving." Patient continues to do very well, and is taking an active role in his treatment. Mood good, and patient happy to report good visits with his children over Thanks. Sleep and appetite intact, no other concerns. [facility] with [facility] in order to give patient more time to become accustomed to staying on medications, and to further explore outpatient living arrangements. Suicidal Ideation: None Homicidal Ideation: None [facility] - Objective Physical Exam Vital Signs Vital Signs Date Time Temp Pulse Resp B/P (MAP) Pulse Ox O2 Delivery O2 Flow Rate FiO2 06/10/18 13:35 98.7 78 18 132/72 (92) 92 Room Air Muscle Strength and Tone: WNL Gait and Station: Steady [facility] Medications Reviewed: Side Effects, Benefits of Medication, Risks Allergies Reviewed: Yes Mental Status Exam General Appearance: Casual, Well Groomed, Good Eye Contact (Fair at times), Cooperative, Polite, Good Interaction; No Tearful, No Psychomotor Agitation, No Psychomotor Retardation, No Bizarre Mannerisms, No Tics Speech: Clear, Spontaneous, Normal Rate, Normal Rhythm, Normal Volume, Normal Tone, Other (Slight sing- song jen to speech) Mood: Euthymic Affect: Full and Appropriate, Calm; No Withdrawn, No Tearful, No Anxious, No Agitated Thought Process: Organized, Logical (mostly), Goal Directed; No Loose Associations, No Flight of Ideas Thought Content: No Suicidal Ideation, No Homicidal Ideation, No Delusions (denies, no evidence of paranoia), No Auditory Halllucinations, No Visual Hallucinations, No Thought Broadcasting, No Ideas of Reference, No Obsessions, No Compulsions Sensorium: Clear Cognition: Alert & Oriented-Person, Alert & Oriented-Place, Alert & Oriented- Time, Vzhud-Bhswclyj-Nimqqawwj Memory: Immediate, Recent, Remote Intelligence: Average Insight Judgment: Fair (much improvement while on medications) Lab Vital Signs Date Time Temp Pulse Resp B/P (MAP) Pulse Ox O2 Delivery O2 Flow Rate FiO2 06/10/18 13:35 98.7 78 18 132/72 (92) 92 Room Air S Assessment and Plan Mlmz-mq-Uwln Encounter Date: Jun 11, 2018 Wxpj-hr-Npsw Encounter Time: 08:45 [facility] Plan: Necessary Precautions, Individual/Group Therapy, Admin/Titrate Meds, Educate Patient Tobacco Medications: Not Appropriate Condition Multpiple Antipsychotics Used: No Problems: (1) Schizophrenia Status: Chronic Condition Continue current medications and treatment Awaiting [facility] transfer Problem Qualifiers (1) Schizophrenia: Schizophrenia type: paranoid schizophrenia Qualified Codes: F20.0 - Paranoid schizophrenia EMMA GIANG NP Jun 11, 2018 08:46
[2018-06-11 11:52] LABS: PLATELET COUNT, AUTOMATED 318 K/uL (150-450)
[2018-06-11 13:00] VITALS: BP 148/68
[2018-06-11] MEDS: QUEtiapine FUM 100 MG TAB PO SCH (20:43)
[2018-06-12] MEDS: DOCUSATE SODIUM 100 MG CAP PO SCH ×2 (07:31→20:44)
[2018-06-12] MEDS: PANTOPRAZOLE SOD 40 MG TABEC PO SCH (07:31)
[2018-06-12] MEDS: HYPROMELLOSE 0.4% LUB 15ML BTL OD PRN ×2 (07:31→14:03)
[2018-06-12] MEDS: MULTIVITAMINS PO SCH (07:31)
[2018-06-12] MEDS: NICOTINE POLACRILEX 2 MG GUM PO PRN ×4 (07:32→20:45)
--- NOTE | 2018-06-12 08:40 | BHS Progress Note ---
S - Subjective Progress Notes Subjective "The depression is up and down. I miss my family a little bit. The medicine is doing good." Patient continues to do well, and taking an active role in his treatment, compliant with medication. Mood good, and patient happy to have had visits from his children over . Sleep and appetite intact, no other concerns. [facility] in order to give patient more time to become accustomed to staying on medications, and to further explore outpatient living arrangements. Suicidal Ideation: None Homicidal Ideation: None S - Objective Physical Exam Vital Signs Vital Signs Date Time Temp Pulse Resp B/P (MAP) Pulse Ox O2 Delivery O2 Flow Rate FiO2 06/11/18 13:00 98.8 80 16 148/68 (94) 90 Room Air Muscle Strength and Tone: WNL Gait and Station: Steady [facility] Medications Reviewed: Side Effects, Benefits of Medication, Risks Allergies Reviewed: Yes Mental Status Exam General Appearance: Casual, Well Groomed, Good Eye Contact (Fair at times), Cooperative, Polite, Good Interaction; No Tearful, No Psychomotor Agitation, No Psychomotor Retardation, No Bizarre Mannerisms, No Tics Speech: Clear, Spontaneous, Normal Rate, Normal Rhythm, Normal Volume, Normal Tone, Other (Slight sing- song jen to speech) Mood: Euthymic (some depression regarding length of stay, missing family) Affect: Full and Appropriate, Calm; No Withdrawn, No Tearful, No Anxious, No Agitated Thought Process: Organized, Logical (mostly), Goal Directed; No Loose Associati ons, No Flight of Ideas Thought Content: No Suicidal Ideation, No Homicidal Ideation, No Delusions (denies, no evidence of paranoia), No Auditory Halllucinations, No Visual Hallu cinations, No Thought Broadcasting, No Ideas of Reference, No Obsessions, No Compulsions Sensorium: Clear Cognition: Alert & Oriented-Person, Alert & Oriented-Place, Alert & Oriented- Time, Flyne-Sbvkinuc-Sdxfjrdng Memory: Immediate, Recent, Remote Intelligence: Average Insight Judgment: Fair (much improvement while on medications) Result Diagram: 06/11/18 1135 06/11/18 1135 Microbiology Laboratory Tests 06/11/18 11:35 Laboratory Tests 06/11/18 11:35: White Blood Count 6.4, Red Blood Count 4.79, Hemoglobin 15.0, Hematocrit 43.2, Mean Corpuscular Volume 90.1, Mean Corpuscular Hemoglobin 31.2, Mean Corpuscular Hemoglobin Concent 34.6, Red Cell Distribution Width 14.1, Platelet Count 318, Mean Platelet Volume , Neutrophils (%) (Auto) 69.8, Lymphocytes (%) (Auto) 17.6, Monocytes (%) (Auto) 9.1, Eosinophils (%) (Auto) 3.0, Basophils (%) (Auto) 0.5, Nucleated RBC Relative Count (auto) 0.1, Neutrophils # (Auto) 4.5, Lymphocytes # (Auto) 1.1, Monocytes # (Auto) 0.6, Eosinophils # (Auto) 0.2, Basophils # (Auto) 0.0, Nucleated RBC Absolute Count (auto) 0.01, Peripheral Blood Smear Yes, Sodium Level 136, Potassium Level 4.9, Chloride Level 102, Carbon Dioxide Level 26, Blood Urea Nitrogen 12, Creatinine 0.80, Glomerular Filtration Rate Calc > 60.0, Random Glucose 101, Calcium Level 9.0, Total Bilirubin 0.5, Aspartate Amino Transf (AST/SGOT) 35, Alanine Aminotransferase (ALT/SGPT) 35, Alkaline Phosphatase 48, Total Protein 7.1, Albumin 3.9 Medications (Trade) Dose Ordered Sig/Reema Route PRN Reason Start Time Stop Time Status Last Admin Dose Admin Acetaminophen (Tylenol(*)325 Mg Tab (Or Equiv)) 650 mg Q4H PRN PO HEADACHE 05/06/18 22:40 06/01/18 11:23 DC 05/30/18 15:26 Al Hydrox/Mg Hydrox/Simethicone (Maalox(*) 30 ml Udcup (Or Equiv)) 30 ml Q4H PRN PO DYSPEPSIA 05/06/18 22:40 07/05/18 22:39 06/07/18 20:31 Docusate Sodium (Colace(*) 100 Mg Cap (Or Equiv)) 100 mg BID PO 06/08/18 10:05 07/08/18 10:04 06/12/18 07:31 Hypromellose (Natural Balance Tears 0.4% 15 ml Btl) 1-2 DROPS TID PRN OD DRY EYES 05/18/18 09:25 06/17/18 09:24 06/12/18 07:31 Ibuprofen (Motrin (*) 600 Mg Tab (Or Equiv)) 600 mg Q6H PRN PO PAIN 06/01/18 11:15 07/01/18 11:14 06/10/18 13:34 Multivitamins (Thera-M Enhanced Tab (Or Equiv)) 1 each QDAY PO 05/07/18 09:00 07/05/18 08:59 06/12/18 07:31 Nicotine Polacrilex (Nicorette 2 Mg Gum (Or Equiv)) 2 mg Q1-2H PRN PO NICOTINE REPLACEMENT 05/07/18 10:40 07/05/18 10:39 06/12/18 07:32 Pantoprazole Sodium (Protonix (*) (Or Equiv)) 40 mg QDAY PO 06/08/18 10:05 07/08/18 10:04 06/12/18 07:31 Quetiapine Fumarate (SEROquel 100 MG TAB (OR EQUIV)) 500 mg QHS PO 05/16/18 21:00 06/15/18 20:59 06/11/18 20:43 S Assessment and Plan Benf-lc-Zwsh Encounter Date: Jun 12, 2018 Ywri-xy-Phhs Encounter Time: 08:38 S Plan: Necessary Precautions, Individual/Group Therapy, Admin/Titrate Meds, Educate Patient Tobacco Medications: Not Appropriate Condition Multpiple Antipsychotics Used: No Problems: (1) Schizophrenia Status: Chronic Condition Continue current medication Awaiting [facility] transfer Problem Qualifiers (1) Schizophrenia: Schizophrenia type: paranoid schizophrenia Qualified Codes: F20.0 - Paranoid schizophrenia EMMA GIANG NP Jun 12, 2018 08:40
[2018-06-12 10:30] VITALS: BP 124/68
[2018-06-12] MEDS: QUEtiapine FUM 100 MG TAB PO SCH (20:44)
[2018-06-13] MEDS: HYPROMELLOSE 0.4% LUB 15ML BTL OD PRN ×3 (08:04→16:09)
[2018-06-13] MEDS: MULTIVITAMINS PO SCH (08:05)
[2018-06-13] MEDS: NICOTINE POLACRILEX 2 MG GUM PO PRN ×3 (08:05→17:32)
[2018-06-13] MEDS: PANTOPRAZOLE SOD 40 MG TABEC PO SCH (08:05)
[2018-06-13] MEDS: DOCUSATE SODIUM 100 MG CAP PO SCH ×2 (08:05→21:10)
--- NOTE | 2018-06-13 11:25 | BHS Progress Note ---
BHS - Subjective Progress Notes Subjective Patient continues to do well on the unit. Stating his current medication regimen is working well. No other concerns. Is now [facility] on the [facility] wait list. Interacting very well and reflecting on when he has been "psychotic" in the past. Suicidal Ideation: None Homicidal Ideation: None BHS - Objective Physical Exam Vital Signs Hematology Test 06/11/18 11:35 Red Blood Count 4.79 M/uL (4.00-5.60) Mean Corpuscular Volume 90.1 fL (80.0-96.0) Mean Corpuscular Hemoglobin 31.2 pg (26.0-33.0) Mean Corpuscular Hemoglobin Concent 34.6 g/dL (32.0-36.0) Red Cell Distribution Width 14.1 % (11.5-14.5) Mean Platelet Volume fL (7.2-11.1) Neutrophils (%) (Auto) 69.8 % (39.4-72.5) Lymphocytes (%) (Auto) 17.6 % (17.6-49.6) Monocytes (%) (Auto) 9.1 % (4.1-12.4) Eosinophils (%) (Auto) 3.0 % (0.4-6.7) Basophils (%) (Auto) 0.5 % (0.3-1.4) Nucleated RBC Relative Count (auto) 0.1 /100WBC Neutrophils # (Auto) 4.5 K/uL (2.0-7.4) Lymphocytes # (Auto) 1.1 K/uL (1.3-3.6) Monocytes # (Auto) 0.6 K/uL (0.3-1.0) Eosinophils # (Auto) 0.2 K/uL (0.0-0.5) Basophils # (Auto) 0.0 K/uL (0.0-0.1) Nucleated RBC Absolute Count (auto) 0.01 K/uL Peripheral Blood Smear Yes Y/N Sodium Level 136 mmol/L (137-145) Potassium Level 4.9 mmol/L (3.5-5.0) Chloride Level 102 mmol/L (98-107) Carbon Dioxide Level 26 mmol/L (22-30) Blood Urea Nitrogen 12 mg/dl (9-21) Creatinine 0.80 mg/dl (0.66-1.25) Glomerular Filtration Rate Calc > 60.0 Random Glucose 101 mg/dl (75-110) Calcium Level 9.0 mg/dl (8.4-10.2) Total Bilirubin 0.5 mg/dl (0.2-1.3) Aspartate Amino Transf (AST/SGOT) 35 U/L (0-35) Alanine Aminotransferase (ALT/SGPT) 35 U/L (0-56) Alkaline Phosphatase 48 U/L (0-126) Total Protein 7.1 g/dl (6.3-8.2) Albumin 3.9 g/dl (3.5-5.0) Chemistry Test 06/11/18 11:35 White Blood Count 6.4 k/uL (4.5-11.0) Red Blood Count 4.79 M/uL (4.00-5.60) Hemoglobin 15.0 g/dL (14.0-18.0) Hematocrit 43.2 % (42.0-52.0) Mean Corpuscular Volume 90.1 fL (80.0-96.0) Mean Corpuscular Hemoglobin 31.2 pg (26.0-33.0) Mean Corpuscular Hemoglobin Concent 34.6 g/dL (32.0-36.0) Red Cell Distribution Width 14.1 % (11.5-14.5) Platelet Count 318 K/uL (150-450) Mean Platelet Volume fL (7.2-11.1) Neutrophils (%) (Auto) 69.8 % (39.4-72.5) Lymphocytes (%) (Auto) 17.6 % (17.6-49.6) Monocytes (%) (Auto) 9.1 % (4.1-12.4) Eosinophils (%) (Auto) 3.0 % (0.4-6.7) Basophils (%) (Auto) 0.5 % (0.3-1.4) Nucleated RBC Relative Count (auto) 0.1 /100WBC Neutrophils # (Auto) 4.5 K/uL (2.0-7.4) Lymphocytes # (Auto) 1.1 K/uL (1.3-3.6) Monocytes # (Auto) 0.6 K/uL (0.3-1.0) Eosinophils # (Auto) 0.2 K/uL (0.0-0.5) Basophils # (Auto) 0.0 K/uL (0.0-0.1) Nucleated RBC Absolute Count (auto) 0.01 K/uL Peripheral Blood Smear Yes Y/N Glomerular Filtration Rate Calc > 60.0 Calcium Level 9.0 mg/dl (8.4-10.2) Total Bilirubin 0.5 mg/dl (0.2-1.3) Aspartate Amino Transf (AST/SGOT) 35 U/L (0-35) Alanine Aminotransferase (ALT/SGPT) 35 U/L (0-56) Alkaline Phosphatase 48 U/L (0-126) Total Protein 7.1 g/dl (6.3-8.2) Albumin 3.9 g/dl (3.5-5.0) Muscle Strength and Tone: WNL Gait and Station: Steady [facility] Medications Reviewed: Side Effects, Benefits of Medication, Risks Allergies Reviewed: Yes Mental Status Exam General Appearance: Casual, Well Groomed, Good Eye Contact (Fair at times), Cooperative, Polite, Good Interaction; No Tearful, No Psychomotor Agitation, No Psychomotor Retardation, No Bizarre Mannerisms, No Tics Speech: Clear, Spontaneous, Normal Rate, Normal Rhythm, Normal Volume, Normal Tone, Other (Slight sing- song jen to speech) Mood: Euthymic (some depression regarding length of stay, missing family) Affect: Full and Appropriate, Calm; No Withdrawn, No Tearful, No Anxious, No Agitated Thought Process: Organized, Logical (mostly), Goal Directed; No Loose Associations, No Flight of Ideas Thought Content: No Suicidal Ideation, No Homicidal Ideation, No Delusions (denies, no evidence of paranoia), No Auditory Halllucinations, No Visual Hallucinations, No Thought Broadcasting, No Ideas of Reference, No Obsessions, No Compulsions Sensorium: Clear Cognition: Alert & Oriented-Person, Alert & Oriented-Place, Alert & Oriented- Time, Pbqza-Mmityqlw-Lodrerkaw Memory: Immediate, Recent, Remote Intelligence: Average Insight Judgment: Fair (much improvement while on medications) Result Diagram: 06/11/18 1135 06/11/18 1135 [facility] Assessment and Plan Eihk-la-Cvfi Encounter Date: Jun 13, 2018 Phsr-cf-Setq Encounter Time: 10:00 [facility] Plan: Necessary Precautions, Individual/Group Therapy, Admin/Titrate Meds, Educate Patient Tobacco Medications: Not Appropriate Condition Multpiple Antipsychotics Used: No Problems: (1) Schizophrenia Status: Chronic (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 Last Edited By: Anay Rhoades on May 09, 2018 15:06 Status: Chronic (3) Mass in region of sella turcica present on magnetic resonance imaging Status: Chronic (4) Obstructive sleep apnea Status: Chronic Condition 1. continue treatment. 2. no medication changes. Problem Qualifiers (1) Schizophrenia: Schizophrenia type: paranoid schizophrenia Qualified Codes: F20.0 - Paranoid schizophrenia ANAY RHOADES MD Jun 13, 2018 11:25
[2018-06-13 14:24] VITALS: BP 127/72
[2018-06-13] MEDS: QUEtiapine FUM 100 MG TAB PO SCH (21:10)
[2018-06-14] MEDS: DOCUSATE SODIUM 100 MG CAP PO SCH ×2 (08:20→20:50)
[2018-06-14] MEDS: HYPROMELLOSE 0.4% LUB 15ML BTL OD PRN ×2 (08:20→14:00)
[2018-06-14] MEDS: NICOTINE POLACRILEX 2 MG GUM PO PRN ×3 (08:20→18:25)
[2018-06-14] MEDS: PANTOPRAZOLE SOD 40 MG TABEC PO SCH (08:20)
[2018-06-14] MEDS: MULTIVITAMINS PO SCH (08:21)
--- NOTE | 2018-06-14 11:09 | BHS Progress Note ---
BHS - Subjective Progress Notes Subjective Patient continues to do well on the unit, interacting well, denies any complaints today. Appetite and sleep good, will continue treatment, and [facility]. Suicidal Ideation: None Homicidal Ideation: None BHS - Objective Physical Exam Vital Signs Vital Signs Date Time Temp Pulse Resp B/P (MAP) Pulse Ox O2 Delivery O2 Flow Rate FiO2 06/13/18 14:24 99.0 68 127/72 (90) 95 Room Air 06/12/18 10:30 16 Hematology Test 06/11/18 11:35 Red Blood Count 4.79 M/uL (4.00-5.60) Mean Corpuscular Volume 90.1 fL (80.0-96.0) Mean Corpuscular Hemoglobin 31.2 pg (26.0-33.0) Mean Corpuscular Hemoglobin Concent 34.6 g/dL (32.0-36.0) Red Cell Distribution Width 14.1 % (11.5-14.5) Mean Platelet Volume fL (7.2-11.1) Neutrophils (%) (Auto) 69.8 % (39.4-72.5) Lymphocytes (%) (Auto) 17.6 % (17.6-49.6) Monocytes (%) (Auto) 9.1 % (4.1-12.4) Eosinophils (%) (Auto) 3.0 % (0.4-6.7) Basophils (%) (Auto) 0.5 % (0.3-1.4) Nucleated RBC Relative Count (auto) 0.1 /100WBC Neutrophils # (Auto) 4.5 K/uL (2.0-7.4) Lymphocytes # (Auto) 1.1 K/uL (1.3-3.6) Monocytes # (Auto) 0.6 K/uL (0.3-1.0) Eosinophils # (Auto) 0.2 K/uL (0.0-0.5) Basophils # (Auto) 0.0 K/uL (0.0-0.1) Nucleated RBC Absolute Count (auto) 0.01 K/uL Peripheral Blood Smear Yes Y/N Sodium Level 136 mmol/L (137-145) Potassium Level 4.9 mmol/L (3.5-5.0) Chloride Level 102 mmol/L (98-107) Carbon Dioxide Level 26 mmol/L (22-30) Blood Urea Nitrogen 12 mg/dl (9-21) Creatinine 0.80 mg/dl (0.66-1.25) Glomerular Filtration Rate Calc > 60.0 Random Glucose 101 mg/dl (75-110) Calcium Level 9.0 mg/dl (8.4-10.2) Total Bilirubin 0.5 mg/dl (0.2-1.3) Aspartate Amino Transf (AST/SGOT) 35 U/L (0-35) Alanine Aminotransferase (ALT/SGPT) 35 U/L (0-56) Alkaline Phosphatase 48 U/L (0-126) Total Protein 7.1 g/dl (6.3-8.2) Albumin 3.9 g/dl (3.5-5.0) Chemistry Test 06/11/18 11:35 White Blood Count 6.4 k/uL (4.5-11.0) Red Blood Count 4.79 M/uL (4.00-5.60) Hemoglobin 15.0 g/dL (14.0-18.0) Hematocrit 43.2 % (42.0-52.0) Mean Corpuscular Volume 90.1 fL (80.0-96.0) Mean Corpuscular Hemoglobin 31.2 pg (26.0-33.0) Mean Corpuscular Hemoglobin Concent 34.6 g/dL (32.0-36.0) Red Cell Distribution Width 14.1 % (11.5-14.5) Platelet Count 318 K/uL (150-450) Mean Platelet Volume fL (7.2-11.1) Neutrophils (%) (Auto) 69.8 % (39.4-72.5) Lymphocytes (%) (Auto) 17.6 % (17.6-49.6) Monocytes (%) (Auto) 9.1 % (4.1-12.4) Eosinophils (%) (Auto) 3.0 % (0.4-6.7) Basophils (%) (Auto) 0.5 % (0.3-1.4) Nucleated RBC Relative Count (auto) 0.1 /100WBC Neutrophils # (Auto) 4.5 K/uL (2.0-7.4) Lymphocytes # (Auto) 1.1 K/uL (1.3-3.6) Monocytes # (Auto) 0.6 K/uL (0.3-1.0) Eosinophils # (Auto) 0.2 K/uL (0.0-0.5) Basophils # (Auto) 0.0 K/uL (0.0-0.1) Nucleated RBC Absolute Count (auto) 0.01 K/uL Peripheral Blood Smear Yes Y/N Glomerular Filtration Rate Calc > 60.0 Calcium Level 9.0 mg/dl (8.4-10.2) Total Bilirubin 0.5 mg/dl (0.2-1.3) Aspartate Amino Transf (AST/SGOT) 35 U/L (0-35) Alanine Aminotransferase (ALT/SGPT) 35 U/L (0-56) Alkaline Phosphatase 48 U/L (0-126) Total Protein 7.1 g/dl (6.3-8.2) Albumin 3.9 g/dl (3.5-5.0) Muscle Strength and Tone: WNL Gait and Station: Steady [facility] Medications Reviewed: Side Effects, Benefits of Medication, Risks Allergies Reviewed: Yes Mental Status Exam General Appearance: Casual, Well Groomed, Good Eye Contact (Fair at times), Cooperative, Polite, Good Interaction; No Tearful, No Psychomotor Agitation, No Psychomotor Retardation, No Bizarre Mannerisms, No Tics Speech: Clear, Spontaneous, Normal Rate, Normal Rhythm, Normal Volume, Normal Tone, Other (Slight sing- song jen to speech) Mood: Euthymic (some depression regarding length of stay, missing family) Affect: Full and Appropriate, Calm; No Withdrawn, No Tearful, No Anxious, No Agitated Thought Process: Organized, Logical (mostly), Goal Directed; No Loose Associations, No Flight of Ideas Thought Content: No Suicidal Ideation, No Homicidal Ideation, No Delusions (denies, no evidence of paranoia), No Auditory Halllucinations, No Visual Hallucinations, No Thought Broadcasting, No Ideas of Reference, No Obsessions, No Compulsions Sensorium: Clear Cognition: Alert & Oriented-Person, Alert & Oriented-Place, Alert & Oriented- Time, Jfdff-Djfbycak-Ckluxejzt Memory: Immediate, Recent, Remote Intelligence: Average Insight Judgment: Fair (much improvement while on medications) Result Diagram: 06/11/18 1135 06/11/18 1135 [facility] Assessment and Plan Rcev-so-Qsts Encounter Date: Jun 14, 2018 Zint-yn-Qiqn Encounter Time: 10:00 [facility] Plan: Necessary Precautions, Individual/Group Therapy, Admin/Titrate Meds, Educate Patient Tobacco Medications: Not Appropriate Condition Multpiple Antipsychotics Used: No Problems: (1) Schizophrenia Status: Chronic (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 Last Edited By: Anay Rhoades on May 09, 2018 15:06 Status: Chronic (3) Mass in region of sella turcica present on magnetic resonance imaging Status: Chronic (4) Obstructive sleep apnea Status: Chronic Condition 1. continue treatment. 2. no medication changes. Problem Qualifiers (1) Schizophrenia: Schizophrenia type: paranoid schizophrenia Qualified Codes: F20.0 - Paranoid schizophrenia ANAY RHOADES MD Jun 14, 2018 11:09
[2018-06-14] MEDS: QUEtiapine FUM 100 MG TAB PO SCH (20:50)
[2018-06-14 21:07] VITALS: BP 119/75
[2018-06-15] MEDS: MULTIVITAMINS PO SCH (08:14)
[2018-06-15] MEDS: DOCUSATE SODIUM 100 MG CAP PO SCH ×2 (08:14→21:09)
[2018-06-15] MEDS: PANTOPRAZOLE SOD 40 MG TABEC PO SCH (08:14)
[2018-06-15] MEDS: NICOTINE POLACRILEX 2 MG GUM PO PRN ×3 (08:15→17:27)
[2018-06-15] MEDS: HYPROMELLOSE 0.4% LUB 15ML BTL OD PRN ×3 (08:32→17:27)
--- NOTE | 2018-06-15 09:08 | BHS Progress Note ---
[facility] - Subjective Progress Notes Subjective Patient continues to do well on the unit. Joking appropriately and in good spirits. Agrees to stay on Seroquel at current dose, and continues to adjust to wearing c-pap machine. Reports sleep and appetite good. No other concerns. Suicidal Ideation: None Homicidal Ideation: None [facility] - Objective Physical Exam Vital Signs Vital Signs Date Time Temp Pulse Resp B/P (MAP) Pulse Ox O2 Delivery O2 Flow Rate FiO2 06/14/18 21:07 99.0 81 119/75 (90) 93 Room Air 06/12/18 10:30 16 Muscle Strength and Tone: WNL Gait and Station: Steady [facility] Medications Reviewed: Side Effects, Benefits of Medication, Risks Allergies Reviewed: Yes Mental Status Exam General Appearance: Casual, Well Groomed, Good Eye Contact (Fair at times), Cooperative, Polite, Good Interaction; No Tearful, No Psychomotor Agitation, No Psychomotor Retardation, No Bizarre Mannerisms, No Tics Speech: Clear, Spontaneous, Normal Rate, Normal Rhythm, Normal Volume, Normal Tone, Other (Slight sing- song jen to speech) Mood: Euthymic (some depression regarding length of stay, missing family) Affect: Full and Appropriate, Calm; No Withdrawn, No Tearful, No Anxious, No Agitated Thought Process: Organized, Logical, Goal Directed; No Loose Associations, No Flight of Ideas Thought Content: No Suicidal Ideation, No Homicidal Ideation, No Delusions (denies, no evidence of paranoia), No Auditory Halllucinations, No Visual Hallucinations, No Thought Broadcasting, No Ideas of Reference, No Obsessions, No Compulsions Sensorium: Clear Cognition: Alert & Oriented-Person, Alert & Oriented-Place, Alert & Oriented- Time, Hlocn-Zwkppbfm-Txwvpvfyw Memory: Immediate, Recent, Remote Intelligence: Average Insight Judgment: Fair (much improvement while on medications) Result Diagram: 06/11/18 1135 06/11/18 1135 [facility] Assessment and Plan Zpmc-vh-Icux Encounter Date: Jun 15, 2018 Srhz-ke-Ngfb Encounter Time: 08:40 [facility] Plan: Necessary Precautions, Individual/Group Therapy, Admin/Titrate Meds, Educate Patient Tobacco Medications: Not Appropriate Condition Multpiple Antipsychotics Used: No Problems: (1) Schizophrenia Status: Chronic (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 Last Edited By: Anay Rhoades on May 09, 2018 15:06 Status: Chronic (3) Mass in region of sella turcica present on magnetic resonance imaging Status: Chronic (4) Obstructive sleep apnea Optional Permanent Comment: patient now adjusting to wearing c-pap Last Edited By: Anay Rhoades on Jun 15, 2018 09:07 Status: Chronic Condition 1. continue treatment. [facility]. [facility] Problem Qualifiers (1) Schizophrenia: Schizophrenia type: paranoid schizophrenia Qualified Codes: F20.0 - Paranoid schizophrenia ANAY RHOADES MD Jun 15, 2018 09:08
[2018-06-15] MEDS: QUEtiapine FUM 100 MG TAB PO SCH (21:09)
[2018-06-16] MEDS: DOCUSATE SODIUM 100 MG CAP PO SCH ×2 (08:11→20:33)
[2018-06-16] MEDS: NICOTINE POLACRILEX 2 MG GUM PO PRN ×3 (08:12→18:10)
[2018-06-16] MEDS: MULTIVITAMINS PO SCH (08:12)
[2018-06-16] MEDS: PANTOPRAZOLE SOD 40 MG TABEC PO SCH (08:12)
[2018-06-16] MEDS: HYPROMELLOSE 0.4% LUB 15ML BTL OD PRN ×3 (08:12→18:09)
[2018-06-16 08:40] VITALS: BP 126/80
[2018-06-16] MEDS ORDERED: ALBUTEROL SULFATE 90 MCG/ACT 8.5 GM HNH INH PRN (11:50)
--- NOTE | 2018-06-16 12:01 | BHS Progress Note ---
[facility] - Subjective Progress Notes Subjective Patient remains doing very well on the unit and current medication regimen. No complaints today, but is requesting previously prescribed inhaler, as needed as he continues to get used to c-pap machine. Appetite and sleep good. Suicidal Ideation: None Homicidal Ideation: None [facility] - Objective Physical Exam Vital Signs Vital Signs Date Time Temp Pulse Resp B/P (MAP) Pulse Ox O2 Delivery O2 Flow Rate FiO2 06/16/18 08:40 99.1 92 126/80 (95) 93 Room Air 06/12/18 10:30 16 Muscle Strength and Tone: WNL Gait and Station: Steady S Medications Reviewed: Side Effects, Benefits of Medication, Risks Allergies Reviewed: Yes Mental Status Exam General Appearance: Casual, Well Groomed, Good Eye Contact (Fair at times), Cooperative, Polite, Good Interaction; No Tearful, No Psychomotor Agitation, No Psychomotor Retardation, No Bizarre Mannerisms, No Tics Speech: Clear, Spontaneous, Normal Rate, Normal Rhythm, Normal Volume, Normal Tone, Other (Slight sing- song jen to speech) Mood: Euthymic (some depression regarding length of stay, missing family) Affect: Full and Appropriate, Calm; No Withdrawn, No Tearful, No Anxious, No Agitated Thought Process: Organized, Logical, Goal Directed; No Loose Associations, No Flight of Ideas Thought Content: No Suicidal Ideation, No Homicidal Ideation, No Delusions (denies, no evidence of paranoia), No Auditory Halllucinations, No Visual Hallucinations, No Thought Broadcasting, No Ideas of Reference, No Obsessions, No Compulsions Sensorium: Clear Cognition: Alert & Oriented-Person, Alert & Oriented-Place, Alert & Oriented- Time, Cwymt-Wddotfdv-Agvodzrlo Memory: Immediate, Recent, Remote Intelligence: Average Insight Judgment: Fair (much improvement while on medications) [facility] Assessment and Plan Crrs-nc-Toot Encounter Date: Jun 16, 2018 Jvvi-va-[id number] Encounter Time: 12:00 [facility] Plan: Necessary Precautions, Individual/Group Therapy, Admin/Titrate Meds, Educate Patient Tobacco Medications: Not Appropriate Condition Multpiple Antipsychotics Used: No Problems: (1) Schizophrenia Status: Chronic (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 Last Edited By: Anay Rhoades on May 09, 2018 15:06 Status: Chronic (3) Mass in region of sella turcica present on magnetic resonance imaging Status: Chronic (4) Obstructive sleep apnea Optional Permanent Comment: patient now adjusting to wearing c-pap Last Edited By: Anay Rhoades on Jun 15, 2018 09:07 Status: Chronic Condition 1. continue treatment. 2. start inhaler PRN Problem Qualifiers (1) Schizophrenia: Schizophrenia type: paranoid schizophrenia Qualified Codes: F20.0 - Paranoid schizophrenia ANAY RHOADES MD Jun 16, 2018 12:01
[2018-06-16] MEDS: QUEtiapine FUM 100 MG TAB PO SCH (20:34)
[2018-06-16] MEDS: ALBUTEROL 8 GM INHALER INH PRN (21:35)
[2018-06-17] MEDS: NICOTINE POLACRILEX 2 MG GUM PO PRN ×2 (08:18→13:38)
[2018-06-17] MEDS: PANTOPRAZOLE SOD 40 MG TABEC PO SCH (08:18)
[2018-06-17] MEDS: MULTIVITAMINS PO SCH (08:18)
[2018-06-17] MEDS: HYPROMELLOSE 0.4% LUB 15ML BTL OD PRN ×2 (08:18→13:38)
[2018-06-17] MEDS: DOCUSATE SODIUM 100 MG CAP PO SCH ×2 (08:18→20:55)
--- NOTE | 2018-06-17 09:16 | BHS Progress Note ---
BHS - Subjective Progress Notes Subjective Patient doing well on the unit, indicates an understanding of potential living in [facility] apartments. Plan to transfer to [facility], unless apartment at [facility] could be arranged prior to transfer time. Mood good, compliant with c-pap machine, no other complaints. Suicidal Ideation: None Homicidal Ideation: None BHS - Objective Physical Exam Vital Signs Vital Signs Date Time Temp Pulse Resp B/P (MAP) Pulse Ox O2 Delivery O2 Flow Rate FiO2 06/16/18 08:40 99.1 92 126/80 (95) 93 Room Air Hematology Test 06/11/18 11:35 Red Blood Count 4.79 M/uL (4.00-5.60) Mean Corpuscular Volume 90.1 fL (80.0-96.0) Mean Corpuscular Hemoglobin 31.2 pg (26.0-33.0) Mean Corpuscular Hemoglobin Concent 34.6 g/dL (32.0-36.0) Red Cell Distribution Width 14.1 % (11.5-14.5) Mean Platelet Volume fL (7.2-11.1) Neutrophils (%) (Auto) 69.8 % (39.4-72.5) Lymphocytes (%) (Auto) 17.6 % (17.6-49.6) Monocytes (%) (Auto) 9.1 % (4.1-12.4) Eosinophils (%) (Auto) 3.0 % (0.4-6.7) Basophils (%) (Auto) 0.5 % (0.3-1.4) Nucleated RBC Relative Count (auto) 0.1 /100WBC Neutrophils # (Auto) 4.5 K/uL (2.0-7.4) Lymphocytes # (Auto) 1.1 K/uL (1.3-3.6) Monocytes # (Auto) 0.6 K/uL (0.3-1.0) Eosinophils # (Auto) 0.2 K/uL (0.0-0.5) Basophils # (Auto) 0.0 K/uL (0.0-0.1) Nucleated RBC Absolute Count (auto) 0.01 K/uL Peripheral Blood Smear Yes Y/N Sodium Level 136 mmol/L (137-145) Potassium Level 4.9 mmol/L (3.5-5.0) Chloride Level 102 mmol/L (98-107) Carbon Dioxide Level 26 mmol/L (22-30) Blood Urea Nitrogen 12 mg/dl (9-21) Creatinine 0.80 mg/dl (0.66-1.25) Glomerular Filtration Rate Calc > 60.0 Random Glucose 101 mg/dl (75-110) Calcium Level 9.0 mg/dl (8.4-10.2) Total Bilirubin 0.5 mg/dl (0.2-1.3) Aspartate Amino Transf (AST/SGOT) 35 U/L (0-35) Alanine Aminotransferase (ALT/SGPT) 35 U/L (0-56) Alkaline Phosphatase 48 U/L (0-126) Total Protein 7.1 g/dl (6.3-8.2) Albumin 3.9 g/dl (3.5-5.0) Chemistry Test 06/11/18 11:35 White Blood Count 6.4 k/uL (4.5-11.0) Red Blood Count 4.79 M/uL (4.00-5.60) Hemoglobin 15.0 g/dL (14.0-18.0) Hematocrit 43.2 % (42.0-52.0) Mean Corpuscular Volume 90.1 fL (80.0-96.0) Mean Corpuscular Hemoglobin 31.2 pg (26.0-33.0) Mean Corpuscular Hemoglobin Concent 34.6 g/dL (32.0-36.0) Red Cell Distribution Width 14.1 % (11.5-14.5) Platelet Count 318 K/uL (150-450) Mean Platelet Volume fL (7.2-11.1) Neutrophils (%) (Auto) 69.8 % (39.4-72.5) Lymphocytes (%) (Auto) 17.6 % (17.6-49.6) Monocytes (%) (Auto) 9.1 % (4.1-12.4) Eosinophils (%) (Auto) 3.0 % (0.4-6.7) Basophils (%) (Auto) 0.5 % (0.3-1.4) Nucleated RBC Relative Count (auto) 0.1 /100WBC Neutrophils # (Auto) 4.5 K/uL (2.0-7.4) Lymphocytes # (Auto) 1.1 K/uL (1.3-3.6) Monocytes # (Auto) 0.6 K/uL (0.3-1.0) Eosinophils # (Auto) 0.2 K/uL (0.0-0.5) Basophils # (Auto) 0.0 K/uL (0.0-0.1) Nucleated RBC Absolute Count (auto) 0.01 K/uL Peripheral Blood Smear Yes Y/N Glomerular Filtration Rate Calc > 60.0 Calcium Level 9.0 mg/dl (8.4-10.2) Total Bilirubin 0.5 mg/dl (0.2-1.3) Aspartate Amino Transf (AST/SGOT) 35 U/L (0-35) Alanine Aminotransferase (ALT/SGPT) 35 U/L (0-56) Alkaline Phosphatase 48 U/L (0-126) Total Protein 7.1 g/dl (6.3-8.2) Albumin 3.9 g/dl (3.5-5.0) Muscle Strength and Tone: WNL Gait and Station: Steady [facility] Medications Reviewed: Side Effects, Benefits of Medication, Risks Allergies Reviewed: Yes Mental Status Exam General Appearance: Casual, Well Groomed, Good Eye Contact (Fair at times), Cooperative, Polite, Good Interaction; No Tearful, No Psychomotor Agitation, No Psychomotor Retardation, No Bizarre Mannerisms, No Tics Speech: Clear, Spontaneous, Normal Rate, Normal Rhythm, Normal Volume, Normal Tone, Other (Slight sing- song jen to speech) Mood: Euthymic Affect: Full and Appropriate, Calm; No Withdrawn, No Tearful, No Anxious, No Agitated Thought Process: Organized, Logical, Goal Directed; No Loose Associations, No Flight of Ideas Thought Content: No Suicidal Ideation, No Homicidal Ideation, No Delusions, No Auditory Halllucinations, No Visual Hallucinations, No Thought Broadcasting, No Ideas of Reference, No Obsessions, No Compulsions Sensorium: Clear Cognition: Alert & Oriented-Person, Alert & Oriented-Place, Alert & Oriented- Time, Bkyzz-Nrozjuxz-Kjxeswnbx Memory: Immediate, Recent, Remote Intelligence: Average Insight Judgment: Fair (much improvement while on medications) [facility] Assessment and Plan Reej-[id number] Encounter Date: Jun 17, 2018 Iklw-ws-Xokh Encounter Time: 09:00 [facility] Plan: Necessary Precautions, Individual/Group Therapy, Admin/Titrate Meds, Educate Patient Tobacco Medications: Not Appropriate Condition Multpiple Antipsychotics Used: No Problems: (1) Schizophrenia Status: Chronic (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 Last Edited By: Anay Rhoades on May 09, 2018 15:06 Status: Chronic (3) Mass in region of sella turcica present on magnetic resonance imaging Status: Chronic (4) Obstructive sleep apnea Optional Permanent Comment: patient now adjusting to wearing c-pap Last Edited By: Anay Rhoades on Jun 15, 2018 09:07 Status: Chronic Condition 1. continue current medications. 2. final[facility] Problem Qualifiers (1) Schizophrenia: Schizophrenia type: paranoid schizophrenia Qualified Codes: F20.0 - Paranoid schizophrenia ANAY RHOADES MD Jun 17, 2018 09:16
[2018-06-17 12:20] VITALS: BP 138/72
[2018-06-17] MEDS: QUEtiapine FUM 100 MG TAB PO SCH (20:55)
[2018-06-17] MEDS: ALBUTEROL 8 GM INHALER INH PRN (20:55)
[2018-06-18 01:10] VITALS: BP 128/78
[2018-06-18] MEDS: DOCUSATE SODIUM 100 MG CAP PO SCH ×2 (07:37→21:26)
[2018-06-18] MEDS: PANTOPRAZOLE SOD 40 MG TABEC PO SCH (07:37)
[2018-06-18] MEDS: NICOTINE POLACRILEX 2 MG GUM PO PRN ×2 (07:37→14:55)
[2018-06-18] MEDS: HYPROMELLOSE 0.4% LUB 15ML BTL OD PRN ×2 (07:37→14:57)
[2018-06-18] MEDS: MULTIVITAMINS PO SCH (07:37)
--- NOTE | 2018-06-18 09:27 | BHS Progress Note ---
[facility] - Subjective Progress Notes Subjective "Pretty good. I might go to [facility]." Suicidal Ideation: None Homicidal Ideation: None [facility] - Objective Physical Exam Vital Signs Vital Signs 06/18/18 01:10 Temp 98.0 Pulse 77 Resp 16 B/P (MAP) 128/78 (95) Pulse Ox 94 O2 Delivery Room Air Muscle Strength and Tone: WNL Gait and Station: Steady [facility] Medications Reviewed: Side Effects, Benefits of Medication, Risks Allergies Reviewed: Yes Mental Status Exam General Appearance: Casual, Well Groomed, Good Eye Contact (Fair at times), Cooperative, Polite, Good Interaction; No Tearful, No Psychomotor Agitation, No Psychomotor Retardation, No Bizarre Mannerisms, No Tics Speech: Clear, Spontaneous, Normal Rate, Normal Rhythm, Normal Volume, Normal Tone, Other (Slight sing- song jen to speech) Mood: Euthymic Affect: Full and Appropriate, Calm; No Withdrawn, No Tearful, No Anxious, No Agitated Thought Process: Organized, Logical, Goal Directed; No Loose Associations, No Flight of Ideas Thought Content: No Suicidal Ideation, No Homicidal Ideation, No Delusions, No Auditory Halllucinations, No Visual Hallucinations, No Thought Broadcasting, No Ideas of Reference, No Obsessions, No Compulsions Sensorium: Clear Cognition: Alert & Oriented-Person, Alert & Oriented-Place, Alert & Oriented- Time, Lolqg-Hfbjvoti-Goqsqcwhq Memory: Immediate, Recent, Remote Intelligence: Average Insight Judgment: Fair (much improvement while on medications) [facility] Assessment and Plan Ivth-sr-[id number] Encounter Date: Jun 18, 2018 Amgf-ow-Wuai Encounter Time: 09:20 [facility] Plan: Necessary Precautions, Individual/Group Therapy, Admin/Titrate Meds, Educate Patient Tobacco Medications: Not Appropriate Condition Multpiple Antipsychotics Used: No Problems: (1) Schizophrenia Status: Chronic Problem Qualifiers (1) Schizophrenia: Schizophrenia type: paranoid schizophrenia Qualified Codes: F20.0 - Paranoid schizophrenia MADELYN BOLTON NP Jun 18, 2018 09:27
[2018-06-18 11:20] VITALS: BP 114/70
[2018-06-18] MEDS: IBUPROFEN 600 MG TAB PO PRN (15:48)
[2018-06-18] MEDS: QUEtiapine FUM 100 MG TAB PO SCH (21:26)
[2018-06-18] MEDS: ALBUTEROL 8 GM INHALER INH PRN (21:26)
[2018-06-19] MEDS: MULTIVITAMINS PO SCH (08:32)
[2018-06-19] MEDS: DOCUSATE SODIUM 100 MG CAP PO SCH ×2 (08:32→20:53)
[2018-06-19] MEDS: HYPROMELLOSE 0.4% LUB 15ML BTL OD PRN ×2 (08:32→17:32)
[2018-06-19] MEDS: NICOTINE POLACRILEX 2 MG GUM PO PRN ×2 (08:32→17:32)
[2018-06-19] MEDS: PANTOPRAZOLE SOD 40 MG TABEC PO SCH (08:32)
[2018-06-19 10:27] VITALS: BP 107/77
--- NOTE | 2018-06-19 12:08 | BHS Progress Note ---
[facility] - Subjective Progress Notes Subjective "Pretty good." Reports getting good sleep. Using his CPAP. Denies hallucinations. Pleasant and cooperative Suicidal Ideation: None Homicidal Ideation: None S - Objective Physical Exam Vital Signs Vital Signs 06/19/18 10:27 Temp 98.6 Pulse 106 Resp 16 B/P (MAP) 107/77 (87) Pulse Ox 94 O2 Delivery Room Air Muscle Strength and Tone: WNL Gait and Station: Steady [facility] Medications Reviewed: Side Effects, Benefits of Medication, Risks Allergies Reviewed: Yes Mental Status Exam General Appearance: Casual, Well Groomed, Good Eye Contact (Fair at times), Co operative, Polite, Good Interaction; No Tearful, No Psychomotor Agitation, No Psychomotor Retardation, No Bizarre Mannerisms, No Tics Speech: Clear, Spontaneous, Normal Rate, Normal Rhythm, Normal Volume, Normal Tone, Other (Slight sing- song jen to speech) Mood: Euthymic Affect: Full and Appropriate, Calm; No Withdrawn, No Tearful, No Anxious, No Agitated Thought Process: Organized, Logical, Goal Directed; No Loose Associations, No Flight of Ideas Thought Content: No Suicidal Ideation, No Homicidal Ideation, No Delusions, No Auditory Halllucinations, No Visual Hallucinations, No Thought Broadcasting, No Ideas of Reference, No Obsessions, No Compulsions Sensorium: Clear Cognition: Alert & Oriented-Person, Alert & Oriented-Place, Alert & Oriented- Time, Rjtng-Catxjlbr-Umzhotfec Memory: Immediate, Recent, Remote Intelligence: Average Insight Judgment: Fair (much improvement while on medications) [facility] Assessment and Plan Rzgp-[id number] Encounter Date: Jun 19, 2018 Gths-sf-Xnxz Encounter Time: 11:30 [facility] Plan: Necessary Precautions, Individual/Group Therapy, Admin/Titrate Meds, Educate Patient Tobacco Medications: Not Appropriate Condition Multpiple Antipsychotics Used: No Problems: (1) Schizophrenia Status: Chronic Problem Qualifiers (1) Schizophrenia: Schizophrenia type: paranoid schizophrenia Qualified Codes: F20.0 - Paranoid schizophrenia MADELYN BOLTON NP Jun 19, 2018 12:08
[2018-06-19] MEDS: ALBUTEROL 8 GM INHALER INH PRN (20:53)
[2018-06-19] MEDS: QUEtiapine FUM 100 MG TAB PO SCH (20:54)
[2018-06-20] MEDS: MULTIVITAMINS PO SCH (07:43)
[2018-06-20] MEDS: NICOTINE POLACRILEX 2 MG GUM PO PRN ×2 (07:43→13:44)
[2018-06-20] MEDS: DOCUSATE SODIUM 100 MG CAP PO SCH ×2 (07:43→20:49)
[2018-06-20] MEDS: PANTOPRAZOLE SOD 40 MG TABEC PO SCH (07:43)
[2018-06-20 07:55] VITALS: BP 130/80
[2018-06-20] MEDS: HYPROMELLOSE 0.4% LUB 15ML BTL OD PRN ×2 (08:22→13:44)
--- NOTE | 2018-06-20 08:58 | BHS Progress Note ---
BHS - Subjective Progress Notes Subjective Patient doing well on the unit, will look [facility] and if possible in time to avoid transfer to [facility]. Appetite, mood and sleep good, psychosis resolved, will continue treatment with no changes. Suicidal Ideation: None Homicidal Ideation: None S - Objective Physical Exam Vital Signs Hematology Test 06/11/18 11:35 Red Blood Count 4.79 M/uL (4.00-5.60) Mean Corpuscular Volume 90.1 fL (80.0-96.0) Mean Corpuscular Hemoglobin 31.2 pg (26.0-33.0) Mean Corpuscular Hemoglobin Concent 34.6 g/dL (32.0-36.0) Red Cell Distribution Width 14.1 % (11.5-14.5) Mean Platelet Volume fL (7.2-11.1) Neutrophils (%) (Auto) 69.8 % (39.4-72.5) Lymphocytes (%) (Auto) 17.6 % (17.6-49.6) Monocytes (%) (Auto) 9.1 % (4.1-12.4) Eosinophils (%) (Auto) 3.0 % (0.4-6.7) Basophils (%) (Auto) 0.5 % (0.3-1.4) Nucleated RBC Relative Count (auto) 0.1 /100WBC Neutrophils # (Auto) 4.5 K/uL (2.0-7.4) Lymphocytes # (Auto) 1.1 K/uL (1.3-3.6) Monocytes # (Auto) 0.6 K/uL (0.3-1.0) Eosinophils # (Auto) 0.2 K/uL (0.0-0.5) Basophils # (Auto) 0.0 K/uL (0.0-0.1) Nucleated RBC Absolute Count (auto) 0.01 K/uL Peripheral Blood Smear Yes Y/N Sodium Level 136 mmol/L (137-145) Potassium Level 4.9 mmol/L (3.5-5.0) Chloride Level 102 mmol/L (98-107) Carbon Dioxide Level 26 mmol/L (22-30) Blood Urea Nitrogen 12 mg/dl (9-21) Creatinine 0.80 mg/dl (0.66-1.25) Glomerular Filtration Rate Calc > 60.0 Random Glucose 101 mg/dl (75-110) Calcium Level 9.0 mg/dl (8.4-10.2) Total Bilirubin 0.5 mg/dl (0.2-1.3) Aspartate Amino Transf (AST/SGOT) 35 U/L (0-35) Alanine Aminotransferase (ALT/SGPT) 35 U/L (0-56) Alkaline Phosphatase 48 U/L (0-126) Total Protein 7.1 g/dl (6.3-8.2) Albumin 3.9 g/dl (3.5-5.0) Chemistry Test 06/11/18 11:35 White Blood Count 6.4 k/uL (4.5-11.0) Red Blood Count 4.79 M/uL (4.00-5.60) Hemoglobin 15.0 g/dL (14.0-18.0) Hematocrit 43.2 % (42.0-52.0) Mean Corpuscular Volume 90.1 fL (80.0-96.0) Mean Corpuscular Hemoglobin 31.2 pg (26.0-33.0) Mean Corpuscular Hemoglobin Concent 34.6 g/dL (32.0-36.0) Red Cell Distribution Width 14.1 % (11.5-14.5) Platelet Count 318 K/uL (150-450) Mean Platelet Volume fL (7.2-11.1) Neutrophils (%) (Auto) 69.8 % (39.4-72.5) Lymphocytes (%) (Auto) 17.6 % (17.6-49.6) Monocytes (%) (Auto) 9.1 % (4.1-12.4) Eosinophils (%) (Auto) 3.0 % (0.4-6.7) Basophils (%) (Auto) 0.5 % (0.3-1.4) Nucleated RBC Relative Count (auto) 0.1 /100WBC Neutrophils # (Auto) 4.5 K/uL (2.0-7.4) Lymphocytes # (Auto) 1.1 K/uL (1.3-3.6) Monocytes # (Auto) 0.6 K/uL (0.3-1.0) Eosinophils # (Auto) 0.2 K/uL (0.0-0.5) Basophils # (Auto) 0.0 K/uL (0.0-0.1) Nucleated RBC Absolute Count (auto) 0.01 K/uL Peripheral Blood Smear Yes Y/N Glomerular Filtration Rate Calc > 60.0 Calcium Level 9.0 mg/dl (8.4-10.2) Total Bilirubin 0.5 mg/dl (0.2-1.3) Aspartate Amino Transf (AST/SGOT) 35 U/L (0-35) Alanine Aminotransferase (ALT/SGPT) 35 U/L (0-56) Alkaline Phosphatase 48 U/L (0-126) Total Protein 7.1 g/dl (6.3-8.2) Albumin 3.9 g/dl (3.5-5.0) Vital Signs Date Time Temp Pulse Resp B/P (MAP) Pulse Ox O2 Delivery O2 Flow Rate FiO2 06/20/18 07:55 98.4 79 16 130/80 (97) 94 Room Air Muscle Strength and Tone: WNL Gait and Station: Steady [facility] Medications Reviewed: Side Effects, Benefits of Medication, Risks Allergies Reviewed: Yes Mental Status Exam General Appearance: Casual, Well Groomed, Good Eye Contact (much improved), Cooperative, Polite, Good Interaction; No Tearful, No Psychomotor Agitation, No Psychomotor Retardation, No Bizarre Mannerisms, No Tics Speech: Clear, Spontaneous, Normal Rate, Normal Rhythm, Normal Volume, Normal Tone, Other (Slight sing- song jen to speech) Mood: Euthymic Affect: Full and Appropriate, Calm; No Withdrawn, No Tearful, No Anxious, No Agitated Thought Process: Organized, Logical, Goal Directed; No Loose Associations, No Flight of Ideas Thought Content: No Suicidal Ideation, No Homicidal Ideation, No Delusions, No Auditory Halllucinations, No Visual Hallucinations, No Thought Broadcasting, No Ideas of Reference, No Obsessions, No Compulsions Sensorium: Clear Cognition: Alert & Oriented-Person, Alert & Oriented-Place, Alert & Oriented-Time, Kiyzn-Hvkaiomd-Jactetthl Memory: Immediate, Recent, Remote Intelligence: Average Insight Judgment: Fair (much improvement while on medications) [facility] Assessment and Plan [id number] Encounter Date: Jun 20, 2018 Lmns-yy-Luxl Encounter Time: 09:00 [facility] Plan: Necessary Precautions, Individual/Group Therapy, Admin/Titrate Meds, Educate Patient Tobacco Medications: Not Appropriate Condition Multpiple Antipsychotics Used: No Problems: (1) Schizophrenia Status: Chronic (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 Last Edited By: Anay Rhoades on May 09, 2018 15:06 Status: Chronic (3) Mass in region of sella turcica present on magnetic resonance imaging Status: Chronic (4) Obstructive sleep apnea Optional Permanent Comment: patient now adjusting to wearing c-pap Last Edited By: Anay Rhoades on Jun 15, 2018 09:07 Status: Chronic Condition 1. continue treatment. 2. evaluate for [facility]. verses transfer to [facility]. Problem Qualifiers (1) Schizophrenia: Schizophrenia type: paranoid schizophrenia Qualified Codes: F20.0 - Paranoid schizophrenia ANAY RHOADES MD Jun 20, 2018 08:58
[2018-06-20] MEDS: ALBUTEROL 8 GM INHALER INH PRN (20:49)
[2018-06-20] MEDS: QUEtiapine FUM 100 MG TAB PO SCH (20:50)
[2018-06-21] MEDS: MULTIVITAMINS PO SCH (08:19)
[2018-06-21] MEDS: DOCUSATE SODIUM 100 MG CAP PO SCH ×2 (08:19→21:05)
[2018-06-21] MEDS: NICOTINE POLACRILEX 2 MG GUM PO PRN ×2 (08:19→18:07)
[2018-06-21] MEDS: PANTOPRAZOLE SOD 40 MG TABEC PO SCH (08:19)
--- NOTE | 2018-06-21 13:20 | BHS Progress Note ---
BHS - Subjective Progress Notes Subjective Patient doing well on the unit, and is awaiting a release from [facility] Patient will discharge first into custody of police, to satisfy police hold. No complaints will continue current medications. Suicidal Ideation: None Homicidal Ideation: None BHS - Objective Physical Exam Vital Signs Vital Signs Date Time Temp Pulse Resp B/P (MAP) Pulse Ox O2 Delivery O2 Flow Rate FiO2 06/20/18 07:55 98.4 79 16 130/80 (97) 94 Room Air Hematology Test 06/11/18 11:35 Red Blood Count 4.79 M/uL (4.00-5.60) Mean Corpuscular Volume 90.1 fL (80.0-96.0) Mean Corpuscular Hemoglobin 31.2 pg (26.0-33.0) Mean Corpuscular Hemoglobin Concent 34.6 g/dL (32.0-36.0) Red Cell Distribution Width 14.1 % (11.5-14.5) Mean Platelet Volume fL (7.2-11.1) Neutrophils (%) (Auto) 69.8 % (39.4-72.5) Lymphocytes (%) (Auto) 17.6 % (17.6-49.6) Monocytes (%) (Auto) 9.1 % (4.1-12.4) Eosinophils (%) (Auto) 3.0 % (0.4-6.7) Basophils (%) (Auto) 0.5 % (0.3-1.4) Nucleated RBC Relative Count (auto) 0.1 /100WBC Neutrophils # (Auto) 4.5 K/uL (2.0-7.4) Lymphocytes # (Auto) 1.1 K/uL (1.3-3.6) Monocytes # (Auto) 0.6 K/uL (0.3-1.0) Eosinophils # (Auto) 0.2 K/uL (0.0-0.5) Basophils # (Auto) 0.0 K/uL (0.0-0.1) Nucleated RBC Absolute Count (auto) 0.01 K/uL Peripheral Blood Smear Yes Y/N Sodium Level 136 mmol/L (137-145) Potassium Level 4.9 mmol/L (3.5-5.0) Chloride Level 102 mmol/L (98-107) Carbon Dioxide Level 26 mmol/L (22-30) Blood Urea Nitrogen 12 mg/dl (9-21) Creatinine 0.80 mg/dl (0.66-1.25) Glomerular Filtration Rate Calc > 60.0 Random Glucose 101 mg/dl (75-110) Calcium Level 9.0 mg/dl (8.4-10.2) Total Bilirubin 0.5 mg/dl (0.2-1.3) Aspartate Amino Transf (AST/SGOT) 35 U/L (0-35) Alanine Aminotransferase (ALT/SGPT) 35 U/L (0-56) Alkaline Phosphatase 48 U/L (0-126) Total Protein 7.1 g/dl (6.3-8.2) Albumin 3.9 g/dl (3.5-5.0) Chemistry Test 06/11/18 11:35 White Blood Count 6.4 k/uL (4.5-11.0) Red Blood Count 4.79 M/uL (4.00-5.60) Hemoglobin 15.0 g/dL (14.0-18.0) Hematocrit 43.2 % (42.0-52.0) Mean Corpuscular Volume 90.1 fL (80.0-96.0) Mean Corpuscular Hemoglobin 31.2 pg (26.0-33.0) Mean Corpuscular Hemoglobin Concent 34.6 g/dL (32.0-36.0) Red Cell Distribution Width 14.1 % (11.5-14.5) Platelet Count 318 K/uL (150-450) Mean Platelet Volume fL (7.2-11.1) Neutrophils (%) (Auto) 69.8 % (39.4-72.5) Lymphocytes (%) (Auto) 17.6 % (17.6-49.6) Monocytes (%) (Auto) 9.1 % (4.1-12.4) Eosinophils (%) (Auto) 3.0 % (0.4-6.7) Basophils (%) (Auto) 0.5 % (0.3-1.4) Nucleated RBC Relative Count (auto) 0.1 /100WBC Neutrophils # (Auto) 4.5 K/uL (2.0-7.4) Lymphocytes # (Auto) 1.1 K/uL (1.3-3.6) Monocytes # (Auto) 0.6 K/uL (0.3-1.0) Eosinophils # (Auto) 0.2 K/uL (0.0-0.5) Basophils # (Auto) 0.0 K/uL (0.0-0.1) Nucleated RBC Absolute Count (auto) 0.01 K/uL Peripheral Blood Smear Yes Y/N Glomerular Filtration Rate Calc > 60.0 Calcium Level 9.0 mg/dl (8.4-10.2) Total Bilirubin 0.5 mg/dl (0.2-1.3) Aspartate Amino Transf (AST/SGOT) 35 U/L (0-35) Alanine Aminotransferase (ALT/SGPT) 35 U/L (0-56) Alkaline Phosphatase 48 U/L (0-126) Total Protein 7.1 g/dl (6.3-8.2) Albumin 3.9 g/dl (3.5-5.0) Muscle Strength and Tone: WNL Gait and Station: Steady [facility] Medications Reviewed: Side Effects, Benefits of Medication, Risks Allergies Reviewed: Yes Mental Status Exam General Appearance: Casual, Well Groomed, Good Eye Contact (much improved), Cooperative, Polite, Good Interaction; No Tearful, No Psychomotor Agitation, No Psychomotor Retardation, No Bizarre Mannerisms, No Tics Speech: Clear, Spontaneous, Normal Rate, Normal Rhythm, Normal Volume, Normal Tone, Other (Slight sing- song jen to speech) Mood: Euthymic Affect: Full and Appropriate, Calm; No Withdrawn, No Tearful, No Anxious, No Agitated Thought Process: Organized, Logical, Goal Directed; No Loose Associations, No Flight of Ideas Thought Content: No Suicidal Ideation, No Homicidal Ideation, No Delusions, No Auditory Halllucinations, No Visual Hallucinations, No Thought Broadcasting, No Ideas of Reference, No Obsessions, No Compulsions Sensorium: Clear Cognition: Alert & Oriented-Person, Alert & Oriented-Place, Alert & Oriented- Time, Zfofa-Mzvxzwct-Xaqjtdqqy Memory: Immediate, Recent, Remote Intelligence: Average Insight Judgment: Fair (much improvement while on medications) [facility] Assessment and Plan Sffh-wv-Rqhw Encounter Date: Jun 21, 2018 Sgnk-qk-Nrrz Encounter Time: 12:00 [facility] Plan: Necessary Precautions, Individual/Group Therapy, Admin/Titrate Meds, Educate Patient Tobacco Medications: Not Appropriate Condition Multpiple Antipsychotics Used: No Problems: (1) Schizophrenia Status: Chronic (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 Last Edited By: Anay Rhoades on May 09, 2018 15:06 Status: Chronic (3) Mass in region of sella turcica present on magnetic resonance imaging Status: Chronic (4) Obstructive sleep apnea Optional Permanent Comment: patient now adjusting to wearing c-pap Last Edited By: Anay Rhoades on Jun 15, 2018 09:07 Status: Chronic Condition 1. continues to do well, will await court order for transfer to [facility]. Problem Qualifiers (1) Schizophrenia: Schizophrenia type: paranoid schizophrenia Qualified Codes: F20.0 - Paranoid schizophrenia ANAY RHOADES MD Jun 21, 2018 13:20
[2018-06-21] MEDS: HYPROMELLOSE 0.4% LUB 15ML BTL OD PRN (18:06)
[2018-06-21] MEDS: QUEtiapine FUM 100 MG TAB PO SCH (21:05)
[2018-06-21] MEDS: ALBUTEROL 8 GM INHALER INH PRN (21:05)
[2018-06-22] MEDS: HYPROMELLOSE 0.4% LUB 15ML BTL OD PRN ×3 (08:08→21:17)
[2018-06-22] MEDS: NICOTINE POLACRILEX 2 MG GUM PO PRN ×2 (08:08→18:46)
[2018-06-22] MEDS: MULTIVITAMINS PO SCH (08:08)
[2018-06-22] MEDS: PANTOPRAZOLE SOD 40 MG TABEC PO SCH (08:08)
[2018-06-22] MEDS: DOCUSATE SODIUM 100 MG CAP PO SCH ×2 (08:08→21:16)
--- NOTE | 2018-06-22 09:31 | BHS Progress Note ---
[facility] - Subjective Progress Notes Subjective Patient remains very cooperative and polite on the unit, awaiting placement in [facility], will continue to await [facility]. No other complaints. Suicidal Ideation: None Homicidal Ideation: None [facility] - Objective Physical Exam Vital Signs Vital Signs Date Time Temp Pulse Resp B/P (MAP) Pulse Ox O2 Delivery O2 Flow Rate FiO2 06/20/18 07:55 98.4 79 16 130/80 (97) 94 Room Air Muscle Strength and Tone: WNL Gait and Station: Steady [facility] Medications Reviewed: Side Effects, Benefits of Medication, Risks Allergies Reviewed: Yes Mental Status Exam General Appearance: Casual, Well Groomed, Good Eye Contact (much improved), Cooperative, Polite, Good Interaction; No Tearful, No Psychomotor Agitation, No Psychomotor Retardation, No Bizarre Mannerisms, No Tics Speech: Clear, Spontaneous, Normal Rate, Normal Rhythm, Normal Volume, Normal Tone, Other (Slight sing- song jen to speech) Mood: Euthymic Affect: Full and Appropriate, Calm; No Withdrawn, No Tearful, No Anxious, No Agitated Thought Process: Organized, Logical, Goal Directed; No Loose Associations, No Flight of Ideas Thought Content: No Suicidal Ideation, No Homicidal Ideation, No Delusions, No Auditory Halllucinations, No Visual Hallucinations, No Thought Broadcasting, No Ideas of Reference, No Obsessions, No Compulsions Sensorium: Clear Cognition: Alert & Oriented-Person, Alert & Oriented-Place, Alert & Oriented- Time, Pbtxa-Vwqqclou-Ypixgledf Memory: Immediate, Recent, Remote Intelligence: Average Insight Judgment: Fair (much improvement while on medications) [facility] Assessment and Plan Euax-tn-Nebh Encounter Date: Jun 22, 2018 Pkjk-mv-[id number] Encounter Time: 09:00 [facility] Plan: Necessary Precautions, Individual/Group Therapy, Admin/Titrate Meds, Educate Patient Tobacco Medications: Not Appropriate Condition Multpiple Antipsychotics Used: No Problems: (1) Schizophrenia Status: Chronic (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 Last Edited By: Anay Rhoades on May 09, 2018 15:06 Status: Chronic (3) Mass in region of sella turcica present on magnetic resonance imaging Status: Chronic (4) Obstructive sleep apnea Optional Permanent Comment: patient now adjusting to wearing c-pap Last Edited By: Anay Rhoades on Jun 15, 2018 09:07 Status: Chronic Condition 1. continue to await ability to place in [facility]. 2. no medication changes. Problem Qualifiers (1) Schizophrenia: Schizophrenia type: paranoid schizophrenia Qualified Codes: F20.0 - Paranoid schizophrenia ANAY RHOADES MD Jun 22, 2018 09:31
[2018-06-22] MEDS: IBUPROFEN 600 MG TAB PO PRN (12:07)
[2018-06-22 12:55] VITALS: BP 118/74
[2018-06-22] MEDS: QUEtiapine FUM 100 MG TAB PO SCH (21:16)
[2018-06-22] MEDS: ALBUTEROL 8 GM INHALER INH PRN (21:17)
[2018-06-23] MEDS: NICOTINE POLACRILEX 2 MG GUM PO PRN (08:13)
[2018-06-23] MEDS: HYPROMELLOSE 0.4% LUB 15ML BTL OD PRN (08:13)
[2018-06-23] MEDS: PANTOPRAZOLE SOD 40 MG TABEC PO SCH (08:13)
[2018-06-23] MEDS: MULTIVITAMINS PO SCH (08:13)
[2018-06-23] MEDS: DOCUSATE SODIUM 100 MG CAP PO SCH (08:13)
[2018-06-23] MEDS ORDERED: IBUP600T22 PO (09:04)
[2018-06-23] MEDS ORDERED: DEXT15DR OU (09:06)
[2018-06-23] MEDS ORDERED: DOCU-416 PO ×2 (09:06→09:11)
[2018-06-23] MEDS ORDERED: MULT-1379 PO (09:07)
[2018-06-23] MEDS ORDERED: PANT40TA65 PO (09:07)
[2018-06-23] MEDS ORDERED: QUET100T29 PO (09:07)
[2018-06-23] MEDS ORDERED: NICO-219 BC (09:08)
[2018-06-23] MEDS ORDERED: QUET200T29 PO (09:20)
--- NOTE | 2018-06-25 12:22 | SCHAAF DISCHARGE ---
DATE OF ADMISSION: May 06, 2018 DATE OF DISCHARGE: June 23, 2018 ATTENDING PHYSICIAN Richard Rosenthal MD The patient was seen on approximately June 23, 2018 at 08:30 hours for note concerning this dictation. FINAL DIAGNOSES PER DSM-V 1. Schizophrenia, residual phase at time of discharge. 2. Obstructive sleep apnea currently treated. 3. The patient known to have a very supportive family. REASON FOR ADMISSION This is a fairly well known 57-year-old male who has had an increasing frequency of admissions here to Behavioral Health. The patient historically has stopped taking antipsychotics and not treating sleep apnea at home. The patient becoming very paranoid to the point of leaving [facility] and going on cross[place]country adventure with seemingly no real purpose. The patient becoming paranoid of both his sons who he historically has a very good relationship with in town as well as demonstrating paranoia toward a longstanding roommate where he had lived with his son. Once on the unit, the patient was initially resistant to care. However, patient agreed to slow titration of Seroquel. This was eventually titrated to 500 mg where the patient quickly recovered to the point that patient was interested in using CPAP machine as well and this was arranged. The patient then remained very stable on the unit to the point that the transfer to [facility] could be avoided and the patient could live in [facility] apartments under supervision. The patient demonstrating for at least the last half of the patient's stay on the Behavioral Health Unit, patient demonstrating no evidence of remaining psychosis while treated and patient very cooperative, polite with staff, other patients, and noted to be exercising on the unit and denying any depression. Please see history and physical for full details and electronic record. PHYSICAL EXAMINATION Please see emergency room note. The patient in no acute distress medically at time of admission. Vital signs at the time of admission: Temperature 98.7, pulse 83, respiratory rate 18, blood pressure 157/85 and pulse oximetry 93% on room air. Vital signs at the time of discharge: Temperature 98.4, pulse 84, respiratory rate 16, blood pressure 118/74 and pulse oximetry 94% on room air. LABORATORY DATA CBC on 06/11/18 unremarkable. CMP on 06/11/18 unremarkable as well. Toxicology screen upon admission was unremarkable with a serum alcohol level of 123 at time of admission. Notably patient experiencing no alcohol withdrawal while on the unit. Urine ketones present in urinalysis upon admission, otherwise unremarkable UA. MENTAL STATUS EXAMINATION GENERAL APPEARANCE, BEHAVIOR AND ATTITUDE: This is very polite, cooperative 57-year-old male, no psychomotor agitation, retardation, making much improved eye contact which is difficult for this patient initially. The patient able to joke appropriately with this provider, other staff. No periods of tearfulness. Mood considered good. No psychomotor retardation or agitation. SPEECH: Considered to be within normal limits and baseline for this patient. Some sing-song type of speech continued to exist but much less than when initially admitted. MOOD: Described as good. AFFECT: Full and bright. THOUGHT PROCESSES: Goal-directed, the patient accepting and understanding of living in [facility]. Overall logical and no loose associations or flight of ideas. THOUGHT CONTENT: Free of any remaining auditory or visual hallucinations, ideas of reference, thought broadcastings, delusions, obsessions or compulsions. The patient is adamantly denying suicidal or homicidal ideation. SENSORIUM: Was clear. COGNITION: Alert and oriented to person, place, time and situation. MEMORY: Immediate, recent and remote was estimated intact. INTELLIGENCE: Average, based on interview and historical evidence. INSIGHT AND JUDGMENT: Grossly intact and appropriate for ongoing outpatient management. The patient agreeing to stay on Seroquel and use a CPAP machine. RESULTS OF TESTING Imaging: None. Laboratory data: See above. CONSULTATIONS None. TREATMENT Patient received medications, participated in individual and group therapy. HOSPITAL COURSE Initially again the patient resistant to care, exhibiting paranoia and signs and symptoms consistent with underlying diagnosis of schizophrenia. However, these quickly resolved in the presence of Seroquel and the use of CPAP machine. The patient continued to improve and for a large part of patient's stay under a commitment to the [facility], the patient was doing very well overall with no evidence of gross positive or negative symptoms of illness. CONDITION OF PATIENT ON DISCHARGE Stable. Considered a minimal risk to himself or others, appropriate for outpatient management. DISPOSITION The patient was discharged to [facility] where he would reside and continue to follow up with medication and therapy management. The patient would wear CPAP machine. He was given the Crisis line should symptoms return. DISCHARGE MEDICATIONS: 1. Dextran natural balance tears 1-2 drops each eye t.i.d. 2. Colace 100 mg b.i.d. 3. Ibuprofen 600 mg every 6 hours p.r.n. pain. 4. Multivitamin with Minerals daily. 5. The patient encouraged to abstain from nicotine and could use over the counter nicotine replacement. 6. The patient would remain on Pantoprazole 40 mg daily as well. 7. Quetiapine 500 mg orally at bedtime to take an hour before the patient plans to go to sleep. The patient would follow up as required with neurology for history of cystic pituitary lesion and follow up with ophthalmology as required for history of ocular disease. The risks, benefits and alternatives of the above discharge plan were discussed. Informed consent was given to proceed with the above discharge plan by this patient, [facility], and accepting facility of [facility]. BELEN
== END 2018-06-23 11:33 | disposition home or self-care (01) | DRG 885 ==
LOC: BHS 19:46
PROVIDERS: ADMIT Psychiatry & Neurology Psychiatry; ATTEND Psychiatry & Neurology Psychiatry
DX: F20.5 Residual schizophrenia (principal); G47.33 Obstructive sleep apnea (adult) (pediatric); G70.9 Myoneural disorder, unspecified; G24.01 Drug induced subacute dyskinesia; D49.7 Neoplasm of unspecified behavior of endocrine glands and other parts of nervous system; J45.909 Unspecified asthma, uncomplicated; T43.595S Adverse effect of other antipsychotics and neuroleptics, sequela; F06.8 Other specified mental disorders due to known physiological condition; Z91.14 Patient's other noncompliance with medication regimen; Z98.1 Arthrodesis status; Z88.8 Allergy status to other drugs, medicaments and biological substances; Z88.0 Allergy status to penicillin
CPT/HCPCS: 36415; 82040; 82247; 82310; 82374; 82435; 82565; 82947; 84075; 84132; 84155; 84295; 84450; 84460; 84520; 85025; 94660; J3535

== ENCOUNTER 2018-08-25 06:01 | Emergency (ER) | payer OTHER ==
[~2018-08-25 06:01] MED LIST changes: +DEXT15DR OU; +IBUP600T22 PO; -LOSA50TA74 PO; +LOSA50TA80 PO; +MULT-1379 PO; +PANT40TA65 PO; +QUET100T29 PO; +QUET200T29 PO
[2018-08-25] MEDS ORDERED: ALB18R INH (06:18)
[2018-08-25] MEDS ORDERED: ALBU8.5H IH (06:18)
[2018-08-25] MEDS ORDERED: FLU44R INH (06:18)
[2018-08-25] MEDS ORDERED: LOSA50TA80 PO (06:18)
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
[2018-08-25] MEDS ORDERED: ALBUTEROL 2.5 MG/3 ML NEB NEB ONE (06:30)
[2018-08-25 06:39] LABS: PLATELET COUNT, AUTOMATED 299 K/uL (150-450)
[2018-08-25] MEDS ORDERED: ACETAMINOPHEN 500 MG TAB PO ONE (07:30)
[2018-08-25 08:00] VITALS: BP 95/73
[2018-08-25] MEDS ORDERED: LORazepam 1 MG TAB PO ONE (08:35)
[2018-08-25] MEDS ORDERED: OLANZapine 10 MG VIAL IM ONLY ONE ×4 (08:40→09:05)
[2018-08-25] MEDS ORDERED: WATER STERILE 10 ML VIAL IM ONLY ONE ×4 (08:40→09:05)
[2018-08-25] MEDS ORDERED: LORazepam 2 MG/ML VIAL ONE (08:43)
[2018-08-25] MEDS ORDERED: LORazepam 2 MG/ML VIAL IM ONE ×2 (08:45→08:50)
[2018-08-25] MEDS ORDERED: diphenhydrAMINE 50 MG/ML VIAL IM ONE (08:55)
[2018-08-25] MEDS ORDERED: diphenhydrAMINE 50 MG/ML VIAL IVP ONE (09:05)
== END 2018-08-25 10:17 ==
LOC: ER 06:35
DX: F20.9 Schizophrenia, unspecified (principal); F29 Unspecified psychosis not due to a substance or known physiological condition
CPT/HCPCS: 36415; 80305; 80320; 80329; 81001; 83735; 84443; 85025; 94640; 99284; A4216; J1200; J2060; J3490; J7613; 82040; 82247; 82310; 82374; 82435; 82565; 82947; 84075; 84132; 84155; 84295; 84450; 84460; 84520

== ENCOUNTER 2018-08-25 10:09 | Inpatient (IN) | payer OTHER ==
[~2018-08-25] VITALS: Ht 177.8 cm; Wt 95.7 kg
[~2018-08-25 10:09] MED LIST changes: +FLU44R INH
[2018-08-25 10:25] VITALS: BP 82/58
[2018-08-25] MEDS ORDERED: LORazepam 2 MG/ML VIAL IM PRN (10:35)
[2018-08-25] MEDS ORDERED: WATER FOR INJECTION 10 ML VIAL IM ONLY PRN (10:35)
[2018-08-25] MEDS ORDERED: ACETAMINOPHEN 325 MG TAB PO PRN (10:35)
[2018-08-25] MEDS ORDERED: MAG HYD/AL HYD/SIMETH 30ML UDC PO PRN (10:35)
[2018-08-25] MEDS ORDERED: diphenhydrAMINE 50 MG/ML VIAL IM PRN (10:35)
[2018-08-25] MEDS ORDERED: OLANZapine 10 MG VIAL IM ONLY PRN (10:35)
[2018-08-25 13:40] VITALS: BP 106/68
[2018-08-25] MEDS ORDERED: INFLUENZA VIRUS VAC 0.5ML SYR IM ONLY ONE (16:00)
[2018-08-25] MEDS: QUEtiapine FUM 100 MG TAB PO SCH (21:16)
[2018-08-25 21:57] VITALS: BP 112/64
[2018-08-26] MEDS: MULTIVITAMINS PO SCH (08:33)
[2018-08-26] MEDS: NICOTINE POLACRILEX 2 MG GUM PO PRN ×3 (08:33→17:34)
[2018-08-26] MEDS ORDERED: RISPERIDONE 25 MG/2 ML IM ONLY ONE (09:00)
[2018-08-26 13:55] VITALS: BP 122/64
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
[2018-08-26] MEDS: QUEtiapine FUM 100 MG TAB PO SCH (20:23)
[2018-08-26] MEDS: ALBUTEROL 8 GM INHALER INH PRN (21:01)
[2018-08-27 06:47] VITALS: BP 116/83
[2018-08-27] MEDS: MULTIVITAMINS PO SCH (07:30)
[2018-08-27] MEDS: NICOTINE POLACRILEX 2 MG GUM PO PRN ×5 (07:30→20:06)
--- NOTE | 2018-08-27 09:22 | BHS Progress Note ---
BHS - Subjective Progress Notes Subjective "I don't know what happened but the last several weeks I couldn't sleep. I'm starting to heal and have been exercising." Depression "Once in a while" Anger "I get frustrated at things," CPAP reports "is broke" states has been broke 4-5 weeks Mood euthymic this am, cooperative with interview Appetite and energy level sufficient Suicidal Ideation: None Homicidal Ideation: None BHS - Objective Physical Exam Vital Signs Medications (Trade) Dose Ordered Sig/Reema Route PRN Reason Start Time Stop Time Status Last Admin Dose Admin Acetaminophen (Tylenol(*)325 Mg Tab (Or Equiv)) 650 mg Q4H PRN PO HEADACHE 08/25/18 10:35 09/24/18 10:34 08/26/18 11:45 Albuterol Sulfate (Ventolin Hfa 8 Gm Inh (Or Equiv)) 2 PUFFS Q4HR PRN INH SHORTNESS OF BREATH 08/26/18 20:45 09/25/18 20:44 08/26/18 21:01 Influenza Virus Vaccine Quadrival (Flu Vac ([id number] Formula)) 0.5 ml ONCE ONCE IM ONLY 08/25/18 16:00 08/25/18 16:01 DC 08/25/18 16:21 Multivitamins (Thera-M Enhanced Tab (Or Equiv)) 1 each QDAY PO 08/26/18 09:00 09/25/18 08:59 08/27/18 07:30 Nicotine Polacrilex (Nicorette 2 Mg Gum (Or Equiv)) 2 mg Q1-2H PRN PO NICOTINE REPLACEMENT 08/26/18 08:25 09/25/18 08:24 08/27/18 08:44 Quetiapine Fumarate (SEROquel 100 MG TAB (OR EQUIV)) 500 mg QHS PO 08/25/18 21:00 09/24/18 20:59 08/26/18 20:23 Risperidone (RisperDAL CONSTA 25 MG/2 ML KIT (OR EQUIV)) 25 mg ONCE ONCE IM ONLY 08/26/18 09:00 08/26/18 09:01 DC 08/26/18 09:42 Muscle Strength and Tone: WNL Gait and Station: Steady S Medications Reviewed: Side Effects, Benefits of Medication, Risks Allergies Reviewed: Yes Mental Status Exam General Appearance: Casual, Well Groomed, Good Eye Contact, Cooperative, Polite, Good Interaction Speech: Clear, Spontaneous, Normal Rate, Normal Rhythm, Normal Volume, Normal Tone Mood: Euthymic Affect: Full and Appropriate, Calm Thought Process: Organized, Logical, Goal Directed; No Loose Associations, No Flight of Ideas Thought Content: No Suicidal Ideation, No Homicidal Ideation, No Delusions, No Auditory Halllucinations, No Visual Hallucinations, No Thought Broadcasting, No Ideas of Reference, No Obsessions, No Compulsions Sensorium: Clear Cognition: Alert & Oriented-Person, Alert & Oriented-Place, Alert & Oriented- Time, Klasf-Qarfmakb-Xzvthwecf Memory: Immediate, Recent, Remote Intelligence: Average Insight Judgment: Fair Microbiology Medications (Trade) Dose Ordered Sig/Reema Route PRN Reason Start Time Stop Time Status Last Admin Dose Admin Acetaminophen (Tylenol(*)325 Mg Tab (Or Equiv)) 650 mg Q4H PRN PO HEADACHE 08/25/18 10:35 09/24/18 10:34 08/26/18 11:45 Albuterol Sulfate (Ventolin Hfa 8 Gm Inh (Or Equiv)) 2 PUFFS Q4HR PRN INH SHORTNESS OF BREATH 08/26/18 20:45 09/25/18 20:44 08/26/18 21:01 Influenza Virus Vaccine Quadrival (Flu Vac ([id number] Formula)) 0.5 ml ONCE ONCE IM ONLY 08/25/18 16:00 08/25/18 16:01 DC 08/25/18 16:21 Multivitamins (Thera-M Enhanced Tab (Or Equiv)) 1 each QDAY PO 08/26/18 09:00 09/25/18 08:59 08/27/18 07:30 Nicotine Polacrilex (Nicorette 2 Mg Gum (Or Equiv)) 2 mg Q1-2H PRN PO NICOTINE REPLACEMENT 08/26/18 08:25 09/25/18 08:24 08/27/18 08:44 Quetiapine Fumarate (SEROquel 100 MG TAB (OR EQUIV)) 500 mg QHS PO 08/25/18 21:00 09/24/18 20:59 08/26/18 20:23 Risperidone (RisperDAL CONSTA 25 MG/2 ML KIT (OR EQUIV)) 25 mg ONCE ONCE IM ONLY 08/26/18 09:00 08/26/18 09:01 DC 08/26/18 09:42 [facility] Assessment and Plan Scbr-at-Htjo Encounter Date: Aug 27, 2018 Qwgz-[id number] Encounter Time: 09:16 S Plan: Necessary Precautions, Individual/Group Therapy, Admin/Titrate Meds, Educate Patient Tobacco Medications: Not Appropriate Condition Multpiple Antipsychotics Used: Yes (Converting to injectable) Problems: (1) Schizophrenia, acute undifferentiated Status: Chronic (2) Obstructive sleep apnea Optional Permanent Comment: patient now adjusting to wearing c-pap Last Edited By: Richard Rosenthal on Jun 15, 2018 09:07 Status: Chronic (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 Last Edited By: Richard Rosenthal on May 09, 2018 15:06 Status: Chronic (4) Mass in region of sella turcica present on magnetic resonance imaging Status: Chronic Condition Risperdal Consta 08/26/18, continue Quetiapine at present time Continue current therapy, maintain precautions Ongoing planning for discharge and follow up @ [facility] EMMA GIANG NP Aug 27, 2018 09:22
[2018-08-27] MEDS: DOCUSATE SODIUM 100 MG CAP PO SCH ×2 (11:51→20:33)
[2018-08-27] MEDS: PANTOPRAZOLE SOD 40 MG TABEC PO SCH (11:51)
[2018-08-27] MEDS: IBUPROFEN 600 MG TAB PO PRN ×2 (11:52→17:49)
[2018-08-27 13:40] VITALS: BP 118/68
[2018-08-27] MEDS: ALBUTEROL 8 GM INHALER INH PRN (20:02)
[2018-08-27 20:27] VITALS: BP 136/64
[2018-08-27] MEDS: QUEtiapine FUM 100 MG TAB PO SCH (20:34)
[2018-08-28] MEDS: NICOTINE POLACRILEX 2 MG GUM PO PRN ×5 (05:33→20:23)
[2018-08-28 05:43] VITALS: BP 134/76
[2018-08-28] MEDS: IBUPROFEN 600 MG TAB PO PRN ×3 (07:34→21:26)
[2018-08-28] MEDS: MULTIVITAMINS PO SCH (07:34)
[2018-08-28] MEDS: DOCUSATE SODIUM 100 MG CAP PO SCH ×2 (07:35→20:20)
[2018-08-28] MEDS: PANTOPRAZOLE SOD 40 MG TABEC PO SCH (07:35)
--- NOTE | 2018-08-28 10:31 | BHS Progress Note ---
[facility] - Subjective Progress Notes Subjective "I'm doing better today than I've been in a long time. 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 doesn't pay that much." Started on Risperdal Consta, denies side effects Denies depression, anxiety, anger Sleep sufficient, denies racing thoughts, denies paranoia, denies auditory/visual hallucinations Suicidal Ideation: None Homicidal Ideation: None [facility] - Objective Physical Exam Vital Signs Allergies Coded Allergies Penicillins (Verified Allergy, Intermediate, RASH, 12/10/17) erythromycin base (Verified Adverse Reaction, Mild, NAUSEA/VOMITING, 12/10/17) Muscle Strength and Tone: WNL Gait and Station: Steady [facility] Medications Reviewed: Side Effects, Benefits of Medication, Risks Allergies Reviewed: Yes Mental Status Exam General Appearance: Casual, Well Groomed, Good Eye Contact, Cooperative, Polite, Good Interaction Speech: Clear, Spontaneous, Normal Rate, Normal Rhythm, Normal Volume, Normal Tone Mood: Euthymic Affect: Full and Appropriate, Calm Thought Process: Organized, Logical, Goal Directed; No Loose Associations, No Flight of Ideas Thought Content: No Suicidal Ideation, No Homicidal Ideation, No Delusions, No Auditory Halllucinations, No Visual Hallucinations, No Thought Broadcasting, No Ideas of Reference, No Obsessions, No Compulsions Sensorium: Clear Cognition: Alert & Oriented-Person, Alert & Oriented-Place, Alert & Oriented- Time, Zuehi-Igjldxpz-Sgrfzgrqn Memory: Immediate, Recent, Remote Intelligence: Average Insight Judgment: Fair Microbiology Allergies Coded Allergies Penicillins (Verified Allergy, Intermediate, RASH, 12/10/17) erythromycin base (Verified Adverse Reaction, Mild, NAUSEA/VOMITING, 12/10/17) Imaging Vital Signs Date Time Temp Pulse Resp B/P (MAP) Pulse Ox O2 Delivery O2 Flow Rate FiO2 08/28/18 05:43 97.1 90 134/76 (95) 96 Room Air 90 08/27/18 13:40 16 [facility] Assessment and Plan Ivhs-nc-Hagz Encounter Date: Aug 28, 2018 Aqmj-bq-Wfsh Encounter Time: 10:28 [facility] Plan: Necessary Precautions, Individual/Group Therapy, Admin/Titrate Meds, Educate Patient Tobacco Medications: Not Appropriate Condition Multpiple Antipsychotics Used: Yes (Converting to injectable) Problems: (1) Schizophrenia, acute undifferentiated Status: Chronic (2) Obstructive sleep apnea Optional Permanent Comment: patient now adjusting to wearing c-pap Last Edited By: Richard Rosenthal on Jun 15, 2018 09:07 Status: Chronic (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 Last Edited By: Richard Rosenthal on May 09, 2018 15:06 Status: Chronic (4) Mass in region of sella turcica present on magnetic resonance imaging Status: Chronic Condition Continue current medication and treatment Treatment team 08/29/18 EMMA GIANG NP Aug 28, 2018 10:31
[2018-08-28 12:25] VITALS: BP 116/66
[2018-08-28] MEDS: QUEtiapine FUM 100 MG TAB PO SCH (20:21)
[2018-08-28] MEDS: ALBUTEROL 8 GM INHALER INH PRN (22:21)
[2018-08-28 22:22] VITALS: BP 129/87
[2018-08-29 04:00] VITALS: BP 90/66
[2018-08-29] MEDS: NICOTINE POLACRILEX 2 MG GUM PO PRN ×2 (04:04→08:37)
[2018-08-29] MEDS: MULTIVITAMINS PO SCH (08:37)
[2018-08-29] MEDS: DOCUSATE SODIUM 100 MG CAP PO SCH (08:37)
[2018-08-29] MEDS: PANTOPRAZOLE SOD 40 MG TABEC PO SCH (08:37)
[2018-08-29] MEDS ORDERED: NICO-219 BC (09:51)
[2018-08-29] MEDS ORDERED: [UNRECOGNIZED DRUG - CODE] IM ONLY (09:52)
--- NOTE | 2018-08-29 15:05 | BHS Discharge Summary ---
[facility] Discharge Summary Aknh-fi-Uofe Encounter Date: Aug 29, 2018 Yvtc-pr-Xqhe Encounter Time: 09:30 Reason-Hosp/Final Diag (DSM-V): (1) Schizophrenia Status: Chronic Hospital Course & Plan: Pt was admitted to [facility] and maintained on aggression precautions. He was pleasant and cooperative throughout his stay. He was restarted on his seroquel 500 mg HS. He was given risperdal consta 25 mg IM on Wednesday, Aug.26. He and the staff at [facility] understand that he will need to get his next injection on . He will need to remain on his oral antipsychotic for at least the next three weeks, to give the injectable time to reach steady state. He was given a prescription for Risperdal consta 37.5 mg q 2 weeks. On day of discharge his sterile proc tech from [facility] came up, as well as , the [facility] Modeling Agent to provide continuity on his transition back to out- patient care. Physical Exam Latest Vital Signs Vital Signs 08/28/18 08/29/18 12:25 04:00 Temp 98.8 Pulse 83 Resp 16 B/P (MAP) 90/66 (74) Pulse Ox 94 O2 Delivery Room Air Mental Status Exam General Appearance: Casual, Well Groomed, Good Eye Contact, Cooperative, Polite, Good Interaction Speech: Clear, Spontaneous, Normal Rate, Normal Rhythm, Normal Volume, Normal Tone Mood: Euthymic Affect: Full and Appropriate, Calm Thought Process: Organized, Logical, Goal Directed; No Loose Associations, No Flight of Ideas Thought Content: No Suicidal Ideation, No Homicidal Ideation, No Delusions, No Auditory Halllucinations, No Visual Hallucinations, No Thought Broadcasting, No Ideas of Reference, No Obsessions, No Compulsions Sensorium: Clear Cognition: Alert & Oriented-Person, Alert & Oriented-Place, Alert & Oriented- Time, Xxiyw-Khdhzeuw-Pgwrkfpfl Memory: Immediate, Recent, Remote Intelligence: Average Insight Judgment: Fair Departure Condition: Improved Discharge to: Home Discharge Instructions Home Meds Reported Medications Risperidone (RISPERDAL CONSTA) 37.5 Mg/2 Ml/Syr Syr, 37.5 MG IM ONLY Q2WK, SYR 08/29/18 Nicotine Polacrilex (NICORETTE) 2 Mg Gum, 2 MG BC PRN PRN for NICOTINE REPLACEMENT, GUM 08/29/18 Albuterol Sulfate (VENTOLIN HFA) 18 Gm Inh, 1-2 PUFF INH 3-4XD, INH 08/25/18 Quetiapine Fumarate (SEROQUEL) 200 Mg Tablet, 500 MG PO DAILY@1600 TAKE 2 AND A HALF TABLETS (500 MG) ABOUT AN HOUR BEFORE YOU PLAN TO GO TO SLEEP. 06/23/18 Docusate Sodium (COLACE) 100 Mg Capsule, 100 MG PO BID, CAPSULE 06/23/18 Multivits, W-Fe,Other Min (THERA-M) 1 Each Tablet, 1 EACH PO QDAY 06/23/18 Pantoprazole Sodium (PANTOPRAZOLE SODIUM) 40 Mg Tablet.dr, 40 MG PO QDAY, TAB.SR 06/23/18 Dextran 70/Hypromellose (Natural Balance Tears Eye Drop) 0.1 %-0.3 % Drops, 1-2 DROP OU TID 06/23/18 Ibuprofen (IBUPROFEN) 600 Mg Tablet, 1 TAB PO Q6H PRN for PAIN, TAB 06/23/18 Discontinued Reported Medications Albuterol Sulfate 90 Mcg/Act (PROAIR HFA 90 MCG/ACT) 8.5 Gm Hfa.aer.ad, 2 PUFF IH Q4-6H, INHALER 08/25/18 Fluticasone Prop 44 Mcg (FLOVENT HFA 44 MCG) 44 Mcg Inha, 45 MCG INH, INH 08/25/18 Losartan Potassium (LOSARTAN POTASSIUM) 50 Mg Tablet, 50 MG PO QDAY 08/25/18 Nicotine Polacrilex (NICORETTE) 2 Mg Gum, 2 MG BC Q1-2H PRN for NICOTINE REPLACEMENT, GUM 06/23/18 Multpiple Antipsychotics Used: Yes (Converting to injectable) Reason For >1 Antipsychotic: Needs to be on both for 3 weeks until the injectible comes to steady state. Diet: Regular Special Instructions: Discharge home to [facility]. Follow-up with outpatient therapy and medication management through [facility]. Abstain from alcohol and all illicit substances. Crisis line provided, return to Emergency Room for any thoughts of suicide or homicide. HOLA HOLLAND MD Aug 29, 2018 15:05
== END 2018-08-29 11:18 | disposition home or self-care (01) | DRG 885 ==
LOC: BHS 10:09
PROVIDERS: ADMIT Psychiatry & Neurology Psychiatry; ATTEND Psychiatry & Neurology Psychiatry
DX: F20.3 Undifferentiated schizophrenia (principal); G89.29 Other chronic pain; G47.33 Obstructive sleep apnea (adult) (pediatric); D49.7 Neoplasm of unspecified behavior of endocrine glands and other parts of nervous system; Z98.1 Arthrodesis status; J45.909 Unspecified asthma, uncomplicated; Z81.8 Family history of other mental and behavioral disorders; Z86.19 Personal history of other infectious and parasitic diseases
CPT/HCPCS: 90471; 90674; J2794; J3535

== ENCOUNTER → 2019-02-24 | Outpatient (REF) ==
[~2019-02-24] MED LIST changes: +[UNRECOGNIZED DRUG - CODE] IM ONLY
--- NOTE | 2019-02-24 14:09 | RADIOLOGY IMAGING REPORT ---
FACILITY: [facility] [place] PATIENT NAME: Jonathon Quiroz : 1960 MR: [id number] V: [id number] EXAM DATE: ORDERING PHYSICIAN: TOMAS CRAWFORD TECHNOLOGIST: Location: [facility] [place] Patient: Jonathon Quiroz : 1960 Visit/Account:[id number] Date of Sevice: 02/24/2019 Exam type: CERVICAL SPINE 2 OR 3 VIEW History: Prior cervical fusion, recent fall 3/2 weeks ago with neck pain Comparison: CT C-spine January 10, 2018. Findings: Three views were submitted There is straightening of normal cervical doses. There are postsurgical changes from anterior fusion at C5-6 and C6-7 with anterior plate screws and i ntervertebral disc spacers. The vertebral bodies appear unchanged in alignment when compared to the prior study. Severe disc space narrowing and anterior osteophytes again noted at C4-5. There is mil d disc space narrowing at C7-T1 There is no evidence of prevertebral soft tissue swelling IMPRESSION: 1. Postsurgical changes from anterior fusion at C5-6 and C6-7. Severe disc space narrowing and marginal osteophytes at C4-5 and mild disc space narrowing at C7-T1 The vertebral bodies appear unchanged in alignment when compared to the prior CT of January 10, 2018 Report Dictated By: Susan Zimmer MD at 02/24/2019 1:53 PM Report E-Signed By: Susan Zimmer MD at 02/24/2019 2:01 PM WSN:[id number]
== END ==
LOC: RAD 11:22
PROVIDERS: ATTEND Family Medicine
DX: M25.78 Osteophyte, vertebrae (principal); Z98.1 Arthrodesis status; W19.XXXA Unspecified fall, initial encounter
CPT/HCPCS: 72040